=== PATIENT | female | born 1995 | race Caucasian/White ===

== ENCOUNTER 2020-04-12 16:58 | Emergency (ER) | payer OTHER, SELFPAY ==
--- NOTE | 2020-04-12 | US_ITS ---
EXAMINATION: ULTRASOUND OB LESS THAN 14 WEEKS CLINICAL INFORMATION: Vaginal bleeding, miscarriage versus ectopic. COMPARISON: None TECHNIQUE: Multiple 2-D grayscale and Doppler transabdominal/transvaginal pelvic ultrasound images were obtained. FINDINGS: Uterus: Anteverted/anteflexed demonstrating homogeneous myometrial and endometrial echo texture. The endometrial stripe measures up to 0.6 cm without focal abnormality. The cervix is closed with an approximate length of 2.5 cm. Minimal free fluid in the cul-de-sac. Right ovary: 2.6 x 1.8 x 1.7 cm. No right adnexal abnormality. Left ovary: 2.4 x 1.5 x 1.7 cm. No left adnexal abnormality. US/US OB transvaginal IMPRESSION: 1. Unremarkable uterus and ovaries. No evidence for intrauterine or ectopic . Continued monitoring of beta-hCG levels is recommended. Repeat abdominal ultrasound can be performed when levels reach approximately 1000 or greater.
[2020-04-12 17:15] VITALS: BP 138/76; PULSE 81; RESP 16; TEMP 36.9; O2SAT 100; BMI 37.5
--- NOTE | 2020-04-12 17:56 | US_ITS ---
EXAMINATION: ULTRASOUND OB LESS THAN 14 WEEKS CLINICAL INFORMATION: Vaginal bleeding, miscarriage versus ectopic. COMPARISON: None TECHNIQUE: Multiple 2-D grayscale and Doppler transabdominal/transvaginal pelvic ultrasound images were obtained. FINDINGS: Uterus: Anteverted/anteflexed demonstrating homogeneous myometrial and endometrial echo texture. The endometrial stripe measures up to 0.6 cm without focal abnormality. The cervix is closed with an approximate length of 2.5 cm. Minimal free fluid in the cul-de-sac. Right ovary: 2.6 x 1.8 x 1.7 cm. No right adnexal abnormality. Left ovary: 2.4 x 1.5 x 1.7 cm. No left adnexal abnormality. US/US OB <= 14 weeks fetus IMPRESSION: 1. Unremarkable uterus and ovaries. No evidence for intrauterine or ectopic . Continued monitoring of beta-hCG levels is recommended. Repeat abdominal ultrasound can be performed when levels reach approximately 1000 or greater.
--- NOTE | 2020-04-12 18:09 | ED.PREGNANCY ---
HPI - General Chief complaint: Vaginal Bleeding Stated complaint: miscarriage Time Seen by Provider: 04/12/20 17:37 Source: patient Mode of arrival: ambulatory Limitations: no limitations History of Present Illness HPI Narrative: 24yoF c PMHx of ovarian cyst who is [id number] presenting to the ED c c/o vaginal bleeding since lastnight c clots, lower abd cramping and thin clear/white colored discharged. Reports her last menstrual period was February 25, 2020. Took a test on Saturday and was positive. Denies any fevers, nausea /vomiting, back pain or any other symptoms complaints or concerns at this time. Related Data Home Medications Medication Instructions Recorded Confirmed albuterol sulfate 90 mcg/actuation INHALATION 02/29/20 02/29/20 aerosol inhaler budesonide 90 mcg/actuation breath 0 inh INHALATION 02/29/20 02/29/20 activated powder inhaler buspirone 5 mg tablet 5 mg PO BID 02/29/20 02/29/20 flu vac qs 2019(4 yr up)CD(PF) ml IM 02/29/20 02/29/20 fluoxetine 10 mg capsule 10 mg PO DAILY 02/29/20 02/29/20 Previous Rx's Medication Instructions Recorded acetaminophen [Tylenol Extra 500 mg PO Q6H PRN #14 tab 04/12/20 Strength] prenat.vits,gerri,haa-bqer-xirbs 1 tab PO DAILY #30 tab 04/12/20 Allergies Allergy/AdvReac Type Severity Reaction Status Date / Time amoxicillin Allergy Unknown hives Verified 02/29/20 12:52 Review of Systems Review of Systems: Constitutional : No Fever, No Chills Cardiovascular : No Chest Pain, No SOB Respiratory : No Cough, No Sputum, No Wheezing Gastrointestinal : No Nausea, No Vomiting, No Diarrhea, + abdominal pain, Genitourinary : + irregular bleeding, No Dysuria, No Urinary Frequency, No pelvic pain Musculoskeletal : No Myalgias Skin : No rash Neuro : No Weakness, No Headache Yes all other systems are reviewed and are negative [facility] Past Medical History Attestation statement: The following information was validated with the patient. Surgical History History of removal of cyst Family History Family History Father No problems noted. Mother No problems noted. Maternal Grandmother Diabetes mellitus Maternal Grandfather Cancer Paternal Grandfather No problems noted. Paternal Grandmother No problems noted. Brother No problems noted. Brother No problems noted. Brother No problems noted. Sister No problems noted. Sister No problems noted. Sister No problems noted. Sister No problems noted. Social History Social History Advance Directives: No Advance Directives Information Provided: No Physical Exam Vital Signs: Vital Signs: Last Vital Signs Temp 98.4 F 04/12/20 17:15 Pulse 81 04/12/20 17:15 Resp 16 04/12/20 17:15 BP 138/76 04/12/20 17:15 Pulse Ox 100 04/12/20 17:15 Body Mass Index 37.5 vital signs have been reviewed as normal and appeared to be correct. Blood pressure normal. Heart rate normal. Respiration rate normal. Temperature normal. Oxygen saturation normal. Appearance: Alert. Oriented X3. No acute distress. Head: Normal external exam. Normocephalic. Eyes: PERRLA. EOMI. Conjunctiva and sclera normal. Eyelids normal. ENT: Pharynx normal. Uvula midline. Moist mucous membranes. Neck: Normal inspection. Neck supple. FROM. No adenopathy. No meningeal signs. CVS: Normal heart rate and rhythm. Heart sound normal. No murmurs noted. Pulses normal throughout. Respiratory: No respiratory distress. Painless inspiration. Breath sounds normal. No wheezes/rales/rhonchi noted. Abdomen: Soft and TTP at upper/epigastric abdomen with guarding. No rigidity. Bowel sounds normal in all 4 quadrants. No distention noted. No organomegaly noted. No visible injury noted. No rebound tenderness. Negative Rovsing sign. Negative obturator's sign. Negative psoas sign. Negative Choudhury sign. : Normal external appearance, normal appearance of urethra. No lesions or discharge noted. Normal appearance of vagina normal to palpation. Bright red vaginal bleeding mildly. No vaginal discharge noted. Cervical os is closed. aLdonna RN at bedside for exam. Back: No CVA tenderness. Full range of motion noted. Skin: Skin warm and dry. Normal skin color. Normal skin turgor. No rashes/lesions/lacerations noted. Extremities: Extremities exhibit normal range of motion. Extremities nontender. Neuro: Oriented X 3. No motor deficit. No sensory deficit. Reflexes normal. Course Course Course Narrative: 18PM - 24yoF c PMHx of ovarian cyst who is [id number] presenting to the ED c c/o vaginal bleeding since lastnight c clots, lower abd cramping and thin clear/white colored discharged. - Concern for early stage versus miscarriage versus threatened versus ectopic . - Plan: Labs, UA, UHCG, First trimester ultrasound and re-evaluate. Reevaluation(s) Reevaluation #1: All labs within normal limits. Serum quant 278. UA within normal limits no evidence of UTI. UHCG positive for . Pending gonorrhea / chlamydia/ Trichomonas/yeast and bacterial vaginosis swabs. Although patient does not have any concerns for any STDs at this time and no abnormal vaginal discharge noted only vaginal bleeding on exam therefore will not treat for anything at this time. Patient is B positive for blood type. On ultrasound no evidence for intrauterine or ectopic therefore consulted with OBGYN Dr. Valente Romo and he recommended repeat serum quant in 48 hours therefore I gave her an outpatient lab slip along with instructions to follow-up with OBGYN this week. Instructions to return if any new or worsening symptoms and specially any fevers or any vaginal bleeding or abdominal pain. Patient understands and agrees with this plan. Time: 21:00 MDM - OB/Uterine Contractions Medical Records Attestation: I reviewed the patient's medical records. Lab Data Attestation: I reviewed the patient's lab results. Result diagrams: 04/12/20 18:16 04/12/20 18:16 Labs: Lab Results 04/12/20 04/12/20 04/12/20 Range/Units 18:16 18:16 18:16 WBC 10.4 (4.8-10.8) X10*3/uL RBC 4.54 (4.20-5.50) X10*6/uL Hgb 13.2 (12.0-16.0) g/dl Hct 40.8 (37-47) % MCV 89.9 (80-98) fL MCH 29.1 (27.0-33.0) pg MCHC 32.4 (31.0-35.0) g/dl RDW 12.7 (11.0-16.0) % Plt Count 237 (160-400) X10*3/uL MPV 10.0 (9.4-12.3) fL Immature Gran % (Auto) 0.3 (0.0-0.4) % Neut % (Auto) 64.9 (45-73) % Lymph % (Auto) 24.6 (20-40) % [place] % (Auto) 7.3 (2-11) % Eos % (Auto) 2.5 (0-4) % Baso % (Auto) 0.4 (0-2) % Lymph # (Auto) 2.6 (1.2-4.9) X10*3/uL [place] # (Auto) 0.8 (0.1-1.2) X10*3/uL Eos # (Auto) 0.3 (0.0-0.4) X10*3/uL Baso # (Auto) 0.0 (0.0-0.2) X10*3/uL Abs Immat Gran (auto) 0.03 (0.00-0.03) X10*3/uL Absolute Neuts (auto) 6.8 (2.0-8.3) X10*3/uL Absolute Nucleated RBC 0.000 (0.0-0.012) X10*3/uL Nucleated RBC % (auto) 0.0 (0.0-0.2) /100WBC PT 12.1 (10.8-13.0) SEC INR 1.0 (0.9-1.1) Sodium 141 (135-145) mmol/L Potassium 4.1 (3.3-5.1) mmol/l Chloride 107 (96-108) mmol/L Carbon Dioxide 28 (22-29) mmol/L Anion Gap 10 L (12-20) BUN 13 (9-16) mg/dL Creatinine 0.70 (0.5-1.4) mg/dL Estim Creat Clear Calc 132.7 Estimated GFR > 60 Random Glucose 68 (60-115) mg/dL Calcium 8.4 (8.4-10.2) mg/dL Magnesium 2.0 (1.6-2.6) mg/dL Total Bilirubin 0.3 (0.0-1.0) mg/dL Direct Bilirubin < 0.2 (0.0-0.5) mg/dL AST 15 (5-31) U/L ALT 18 (0-31) U/L Alkaline Phosphatase 63 (39-117) U/L Total Protein 6.8 (6.5-8.0) g/dL Albumin 3.8 (3.5-5.0) g/dL Beta HCG, Quant mIU/mL Urine Color Urine Appearance Urine pH (5.0-8.0) Ur Specific [place] (1.005-1.025) Urine Protein (NEG-TRACE) MG/DL Urine Glucose (UA) (NEG) MG/DL Urine Ketones (NEG) MG/DL Urine Blood (NEG) Urine Nitrite (NEG) Ur Leukocyte Esterase (NEG) Urine RBC (0) /HPF Urine WBC (0-4) /HPF Ur Squamous Epith Cells /LPF Urine Bacteria /LPF Urine Test (NEGATIVE) Blood Type 04/12/20 04/12/20 04/12/20 Range/Units 18:16 18:16 18:16 WBC (4.8-10.8) X10*3/uL RBC (4.20-5.50) X10*6/uL Hgb (12.0-16.0) g/dl Hct (37-47) % MCV (80-98) fL MCH (27.0-33.0) pg MCHC (31.0-35.0) g/dl RDW (11.0-16.0) % Plt Count (160-400) X10*3/uL MPV (9.4-12.3) fL Immature Gran % (Auto) (0.0-0.4) % Neut % (Auto) (45-73) % Lymph % (Auto) (20-40) % [place] % (Auto) (2-11) % Eos % (Auto) (0-4) % Baso % (Auto) (0-2) % Lymph # (Auto) (1.2-4.9) X10*3/uL [place] # (Auto) (0.1-1.2) X10*3/uL Eos # (Auto) (0.0-0.4) X10*3/uL Baso # (Auto) (0.0-0.2) X10*3/uL Abs Immat Gran (auto) (0.00-0.03) X10*3/uL Absolute Neuts (auto) (2.0-8.3) X10*3/uL Absolute Nucleated RBC (0.0-0.012) X10*3/uL Nucleated RBC % (auto) (0.0-0.2) /100WBC PT (10.8-13.0) SEC INR (0.9-1.1) Sodium (135-145) mmol/L Potassium (3.3-5.1) mmol/l Chloride (96-108) mmol/L Carbon Dioxide (22-29) mmol/L Anion Gap (12-20) BUN (9-16) mg/dL Creatinine (0.5-1.4) mg/dL Estim Creat Clear Calc Estimated GFR Random Glucose (60-115) mg/dL Calcium (8.4-10.2) mg/dL Magnesium (1.6-2.6) mg/dL Total Bilirubin (0.0-1.0) mg/dL Direct Bilirubin (0.0-0.5) mg/dL AST (5-31) U/L ALT (0-31) U/L Alkaline Phosphatase (39-117) U/L Total Protein (6.5-8.0) g/dL Albumin (3.5-5.0) g/dL Beta HCG, Quant 278 mIU/mL Urine Color YELLOW Urine Appearance CLEAR Urine pH 6.0 (5.0-8.0) Ur Specific [place] >= 1.030 H (1.005-1.025) Urine Protein NEG (NEG-TRACE) MG/DL Urine Glucose (UA) NEG (NEG) MG/DL Urine Ketones NEG (NEG) MG/DL Urine Blood 3+ H (NEG) Urine Nitrite NEG (NEG) Ur Leukocyte Esterase NEG (NEG) Urine RBC 5-9 H (0) /HPF Urine WBC 0 (0-4) /HPF Ur Squamous Epith Cells TRACE /LPF Urine Bacteria NONE /LPF Urine Test POSITIVE H (NEGATIVE) Blood Type B Positive Imaging Data First trimester ultrasound: Attestation: I personally reviewed and interpreted this imaging study as follows: Radiologist's impression: IMPRESSION: 1. Unremarkable uterus and ovaries. No evidence for intrauterine or ectopic . Continued monitoring of beta-hCG levels is recommended. Repeat abdominal ultrasound can be performed when levels reach approximately 1000 or greater. Discharge Plan Discharge Clinical Impression: Early stage of , Vaginal bleeding, Threatened Patient Disposition: Home, Self-Care Instructions: Threatened Miscarriage (ED), (ED), Abdominal Pain in (ED) Additional Instructions: I gave you are lab slip for repeat serum quant for for April 14 2020 for the outpatient lab and you should call Dr. Victor office the OBGYN tomorrow morning to make an appointment this week as well. Return if any new or worsening symptoms especially any fevers worsening abdominal pain or worsening vaginal bleeding including clots. Prescriptions: New acetaminophen [Tylenol Extra Strength] 500 mg tablet 500 mg PO Q6H PRN (Reason: pain) Qty: 14 RF: 0 prenat.vits,gerri,wcr-jbqe-lonhr Tablet 1 tab PO DAILY Qty: 30 RF: 0 No Action fluoxetine 10 mg capsule 10 mg PO DAILY RF: 0 Flucelvax Quad (PF) 60 mcg (15 mcg x 4)/0.5 mL syringe IM RF: 0 Pulmicort Flexhaler 90 mcg/actuation aerosol powdr breath activated 0 inh inhalation RF: 0 albuterol sulfate 90 mcg/actuation HFA aerosol inhaler inhalation RF: 0 buspirone 5 mg tablet 5 mg PO BID RF: 0 Referrals: Ranjith Victor MD [Physician] - 2 days ( call tomorrow morning to make an appointment ) Stand Alone Forms: Work/School Release Print Language: Indian
[2020-04-12 18:28] LABS: MANUAL DIFF FLAG NO
[2020-04-12 18:31] LABS: Basophils Percent Auto 0.4 % (0-2); Eosinophils Absolute Auto 0.3 X10*3/uL (0.0-0.4); Eosinophils Percent Auto 2.5 % (0-4); Hematocrit 40.8 % (37-47); Hemoglobin 13.2 g/dl (12.0-16.0); Imm Gran Abs Auto 0.03 X10*3/uL (0.00-0.03); Imm Gran Pct Auto 0.3 % (0.0-0.4); Lymphocytes Absolute Auto 2.6 X10*3/uL (1.2-4.9); Lymphocytes Percent Auto 24.6 % (20-40); Mean Corpuscular HGB Conc 32.4 g/dl (31.0-35.0); Mean Corpuscular Hemoglobin 29.1 pg (27.0-33.0); Mean Corpuscular Volume 89.9 fL (80-98); Monocytes Absolute Auto 0.8 X10*3/uL (0.1-1.2); Monocytes Percent Auto 7.3 % (2-11); Neutrophils Absolute Auto 6.8 X10*3/uL (2.0-8.3); Neutrophils Percent Auto 64.9 % (45-73); Platelet Count 237 X10*3/uL (160-400); Red Blood Count 4.54 X10*6/uL (4.20-5.50); Red Cell Distribution Width 12.7 % (11.0-16.0); White Blood Count 10.4 X10*3/uL (4.8-10.8)
[2020-04-12 18:33] LABS: Glucose Urine UA NEG (NEG); Leukocyte Esterase Urine NEG (NEG); Nitrite Urine NEG (NEG); Specific Gravity - Urine >= 1.030 (1.005-1.025); Urine Blood 3+ (NEG); Urine Ketones NEG (NEG); Urine Protein NEG (NEG-TRACE)
[2020-04-12 18:36] LABS: Prothrombin Time 12.1 SEC (10.8-13.0)
[2020-04-12 18:40] LABS: Appearance Urine CLEAR; Color Urine YELLOW; UPreg QC Valid YES; Urine Pregnancy POSITIVE (NEGATIVE)
[2020-04-12 18:49] LABS: Squamous Epithelial Cell Urine TRACE /LPF; WBC Urine 0 /HPF (0-4)
[2020-04-12 18:59] LABS: Alanine Aminotransferase 18 U/L (0-31); Albumin Level 3.8 g/dL (3.5-5.0); Alkaline Phosphatase 63 U/L (39-117); Anion Gap 10 (12-20); Aspartate Amino Transferase 15 U/L (5-31); Bilirubin Direct < 0.2 mg/dL (0.0-0.5); Bilirubin Total 0.3 mg/dL (0.0-1.0); Blood Urea Nitrogen 13 mg/dL (9-16); Calcium 8.4 mg/dL (8.4-10.2); Carbon Dioxide 28 mmol/L (22-29); Chloride 107 mmol/L (96-108); Creatinine Clr Calc Pharmacy 132.7; Estimated Glomerular Filt Rate > 60; Glucose Random 68 mg/dL (60-115); Potassium 4.1 mmol/l (3.3-5.1); Sodium 141 mmol/L (135-145); Total Protein 6.8 g/dL (6.5-8.0)
[2020-04-12 19:05] LABS: HCG Quantitative 278 mIU/mL
--- NOTE | 2020-04-12 19:17 | PC.NURSE ---
ASSUMED CARE OF PT. PT ALERT AND WATCHING TV, RESTING IN STRETCHER. PT REQUESTING NOT TO BE DISTRUBED FROM [id number]. [facility] NURSE AWARE AND STATES WE WILL TRY TO ACCOMMODATE PT AWARE. PT DENIES ANY COMPLAINTS. PT IN W/C TO U/S AT THIS TIME. WILL CONTINUE TO MONITOR PT.
--- NOTE | 2020-04-12 19:50 | PC.NURSE ---
PT RETURNS FROM U/S IN STRETCHER IN NAD. AWAITING PENDING RESULTS.
[2020-04-12] MEDS: Acetaminophen 325 MG TABLET 650 MG PO (20:46)
--- NOTE | 2020-04-12 20:46 | P.CONOB_ITS ---
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 Rh positive, no additional complaints cc:: CC: Meds Allergies Allergy/AdvReac Type Severity Reaction Status Date / Time amoxicillin Allergy Unknown hives Verified 02/29/20 12:52 Home Medications Medication Instructions Recorded Confirmed Type albuterol sulfate 90 mcg/actuation INHALATION 02/29/20 02/29/20 History aerosol inhaler budesonide 90 mcg/actuation breath 0 inh INHALATION 02/29/20 02/29/20 History activated powder inhaler buspirone 5 mg tablet 5 mg PO BID 02/29/20 02/29/20 History flu vac qs 2019(4 yr up)CD(PF) ml IM 02/29/20 02/29/20 History fluoxetine 10 mg capsule 10 mg PO DAILY 02/29/20 02/29/20 History 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 - Results Labs CBC & Chem 7: 04/12/20 18:16 04/12/20 18:16 Labs: Short CBC 04/12/20 Range/Units 18:16 WBC 10.4 (4.8-10.8) X10*3/uL Hgb 13.2 (12.0-16.0) g/dl Hct 40.8 (37-47) % Plt Count 237 (160-400) X10*3/uL BMP 04/12/20 18:16 Sodium 141 Potassium 4.1 Chloride 107 Carbon Dioxide 28 BUN 13 Creatinine 0.70 Calcium 8.4 Liver Function 04/12/20 Range/Units 18:16 Total Bilirubin 0.3 (0.0-1.0) mg/dL Direct Bilirubin < 0.2 (0.0-0.5) mg/dL AST 15 (5-31) U/L ALT 18 (0-31) U/L Alkaline Phosphatase 63 (39-117) U/L Albumin 3.8 (3.5-5.0) g/dL Urine 04/12/20 Range/Units 18:16 Urine Color YELLOW Urine Appearance CLEAR Urine pH 6.0 (5.0-8.0) Ur Specific [place] >= 1.030 H (1.005-1.025) Urine Protein NEG (NEG-TRACE) MG/DL Urine Glucose (UA) NEG (NEG) MG/DL Urine Test POSITIVE H (NEGATIVE) Assessment and Plan (1) Early stage of : Status: Acute Differential diagnosis includes SAB versus ectopic versus early viable . Repeat hCG in 48 hours follow-up in the office in 48 hours. Warnings to be given to the patient to call or come back the emergency room if abdominal/pelvic cramps , and or vaginal bleeding persist and/or worsens. No indication for RhoGAM since Rh is positive
[2020-04-18 18:10] LABS: CT PCR NOT DETECTED (Not Detect.); NG PCR NOT DETECTED (Not Detect.)
== END 2020-04-12 21:12 | disposition home or self-care (01) ==
PROVIDERS: Physician Assistant Medical; Emergency Provider Emergency Medicine Emergency Medical Services; PCP Nurse Practitioner Family
DX: O20.0 Threatened abortion (principal); Z3A.13 13 weeks gestation of pregnancy; R10.10 Upper abdominal pain, unspecified
CPT/HCPCS: 36415; 76801; 76817; 80048; 80076; 81001; 81025; 83735; 84702; 85025; 85610; 86900; 86901; 87480; 87491; 87510; 87591; 87660; 99283; 99284

== ENCOUNTER 2020-04-14 07:22 | Outpatient (REF) | payer OTHER, SELFPAY ==
[2020-04-14 09:36] LABS: Alanine Aminotransferase 19 U/L (0-31); Alkaline Phosphatase 72 U/L (39-117); Anion Gap 10 (12-20); Aspartate Amino Transferase 17 U/L (5-31); Bilirubin Total 0.5 mg/dL (0.0-1.0); Blood Urea Nitrogen 12 mg/dL (9-16); Calcium 8.6 mg/dL (8.4-10.2); Carbon Dioxide 29 mmol/L (22-29); Chloride 105 mmol/L (96-108); Cholesterol 119 mg/dL; Estimated Glomerular Filt Rate > 60; Glucose Fasting 87 mg/dL (60-99); HDL Cholesterol 47 mg/dL; LDL Cholesterol Calculated 65 mg/dl; Potassium 4.3 mmol/l (3.3-5.1); Sodium 140 mmol/L (135-145); Total Protein 7.1 g/dL (6.5-8.0); Triglycerides 35 mg/dL
[2020-04-14 09:56] LABS: HCG Quantitative 98 mIU/mL; TSH reflex Free T4 2.12 mIU/mL (0.32-4.0)
== END 2020-04-14 07:23 | disposition home or self-care (01) ==
LOC: HO.LAB 07:22
PROVIDERS: Nurse Practitioner Family; Visit Provider Physician Assistant Medical
DX: O03.9 Complete or unspecified spontaneous abortion without complication (principal); O46.90 Antepartum hemorrhage, unspecified, unspecified trimester; Z3A.00 Weeks of gestation of pregnancy not specified
CPT/HCPCS: 80053; 80061; 84443; 84702; 99212

== ENCOUNTER 2020-04-14 08:09 | Outpatient (REF) | payer OTHER, SELFPAY | END 2020-04-14 08:10 | disposition home or self-care (01) | LOC: HO.HMGCLDS 08:09 | PROVIDERS: PCP Nurse Practitioner Family; Visit Provider Nurse Practitioner Family | DX: Z13.89 Encounter for screening for other disorder (principal) ==

== ENCOUNTER 2020-04-25 12:37 | Outpatient (REF) | payer OTHER, SELFPAY ==
[2020-04-25 13:44] LABS: HCG Quantitative < 2 mIU/mL
== END 2020-04-25 12:38 | disposition home or self-care (01) ==
LOC: HO.LAB 12:37
PROVIDERS: PCP Nurse Practitioner Family; Visit Provider Obstetrics & Gynecology
DX: O03.9 Complete or unspecified spontaneous abortion without complication (principal)
CPT/HCPCS: 84702

== ENCOUNTER → 2020-04-27 12:54 | Outpatient (BNVA) | payer OTHER, SELFPAY | PROVIDERS: Visit Provider Obstetrics & Gynecology | DX: O03.9 Complete or unspecified spontaneous abortion without complication (principal); Z30.09 Encounter for other general counseling and advice on contraception | CPT/HCPCS: 99212; Q3014 ==

== ENCOUNTER 2020-05-16 17:19 | Outpatient (REF) | payer OTHER, SELFPAY ==
[2020-05-16 18:18] LABS: HCG Quantitative 1277 mIU/mL
== END 2020-05-16 17:20 | disposition home or self-care (01) ==
LOC: HO.LAB 17:19
PROVIDERS: PCP Nurse Practitioner Family; Visit Provider Obstetrics & Gynecology
DX: Z34.90 Encounter for supervision of normal pregnancy, unspecified, unspecified trimester (principal)
CPT/HCPCS: 36415; 84702

== ENCOUNTER → 2020-05-17 14:38 | Outpatient (BNVA) | payer OTHER, SELFPAY | PROVIDERS: PCP Nurse Practitioner Family; Visit Provider Obstetrics & Gynecology | DX: Z34.90 Encounter for supervision of normal pregnancy, unspecified, unspecified trimester (principal) | CPT/HCPCS: 81025; 99212 ==

== ENCOUNTER 2020-05-18 16:59 | Outpatient (REF) | payer OTHER, SELFPAY ==
[2020-05-18 18:21] LABS: HCG Quantitative 3117 mIU/mL
== END 2020-05-18 17:00 | disposition home or self-care (01) ==
LOC: HO.LAB 16:59
PROVIDERS: PCP Nurse Practitioner Family; Visit Provider Obstetrics & Gynecology
DX: Z34.90 Encounter for supervision of normal pregnancy, unspecified, unspecified trimester (principal)
CPT/HCPCS: 36415; 84702

== ENCOUNTER 2020-05-26 14:47 | Outpatient (REF) | payer OTHER, SELFPAY ==
--- NOTE | 2020-05-26 | US_ITS ---
EXAMINATION: US OB LESS THAN 14 WEEKS US OB TRANSVAGINAL CLINICAL INFORMATION: Screening for uncertain dates. COMPARISON: Ultrasound OB 04/12/2020. TECHNIQUE: Transabdominal and transvaginal ultrasound of the pelvis was performed. FINDINGS: The uterus is anteverted. There is an intrauterine gestational sac, pole and yolk sac visualized. The crown-rump length measures 0.28 cm corresponding to 6 weeks and 0 days and an ELODIA of 01/19/2021. There is a small subchorionic hypoechoic area suspicious for a bleed. The heart rate measures 115 bpm. Right ovary measures 2.9 x 1.8 x 1.6 cm and appears unremarkable. Left ovary measures 2.5 x 2.0 x 2.2 cm and appears unremarkable. There is minimal free fluid in the cul-de-sac. US/US OB transvaginal IMPRESSION: Single, intrauterine fetus with an ultrasound gestational age of 6 weeks and 0 days and an ELODIA of 01/19/2021. There is suspicion for a small subchorionic bleed. heart rate is 115 bpm.
--- NOTE | 2020-05-26 14:52 | US_ITS ---
EXAMINATION: US OB LESS THAN 14 WEEKS US OB TRANSVAGINAL CLINICAL INFORMATION: Screening for uncertain dates. COMPARISON: Ultrasound OB 04/12/2020. TECHNIQUE: Transabdominal and transvaginal ultrasound of the pelvis was performed. FINDINGS: The uterus is anteverted. There is an intrauterine gestational sac, pole and yolk sac visualized. The crown-rump length measures 0.28 cm corresponding to 6 weeks and 0 days and an ELODIA of 01/19/2021. There is a small subchorionic hypoechoic area suspicious for a bleed. The heart rate measures 115 bpm. Right ovary measures 2.9 x 1.8 x 1.6 cm and appears unremarkable. Left ovary measures 2.5 x 2.0 x 2.2 cm and appears unremarkable. There is minimal free fluid in the cul-de-sac. US/US OB <= 14 weeks fetus IMPRESSION: Single, intrauterine fetus with an ultrasound gestational age of 6 weeks and 0 days and an ELODIA of 01/19/2021. There is suspicion for a small subchorionic bleed. heart rate is 115 bpm.
== END 2020-05-26 14:48 | disposition home or self-care (01) ==
LOC: HO.US 14:47
PROVIDERS: PCP Nurse Practitioner Family; Visit Provider Obstetrics & Gynecology
DX: O26.841 Uterine size-date discrepancy, first trimester (principal); Z3A.01 Less than 8 weeks gestation of pregnancy
CPT/HCPCS: 76801; 76817

== ENCOUNTER 2020-06-01 13:12 | Outpatient (REF) | payer OTHER, SELFPAY ==
[2020-06-01 17:43] LABS: Glucose Urine UA NEG (NEG); Leukocyte Esterase Urine NEG (NEG); Nitrite Urine NEG (NEG); Specific Gravity - Urine 1.015 (1.005-1.025); Urine Blood NEG (NEG); Urine Ketones NEG (NEG); Urine Protein NEG (NEG-TRACE)
[2020-06-01 17:46] LABS: Appearance Urine CLEAR; Color Urine YELLOW
== END 2020-06-01 13:13 | disposition home or self-care (01) ==
LOC: HO.LAB 13:12
PROVIDERS: PCP Nurse Practitioner Family; Visit Provider Advanced Practice Midwife
DX: O26.899 Other specified pregnancy related conditions, unspecified trimester (principal); R25.2 Cramp and spasm; Z79.899 Other long term (current) drug therapy
CPT/HCPCS: 81003; 99212

== ENCOUNTER → 2020-06-10 14:09 | Outpatient (BNVA) | payer OTHER, SELFPAY | PROVIDERS: PCP Nurse Practitioner Family; Visit Provider Advanced Practice Midwife | DX: Z13.89 Encounter for screening for other disorder (principal) | CPT/HCPCS: 99212 ==

== ENCOUNTER 2020-06-15 16:57 | Outpatient (REF) | payer OTHER, SELFPAY ==
[2020-06-15 17:56] LABS: Basophils Percent Auto 0.2 % (0-2); Eosinophils Absolute Auto 0.2 X10*3/uL (0.0-0.4); Eosinophils Percent Auto 1.5 % (0-4); Hemoglobin 11.8 g/dl (12.0-16.0); Imm Gran Abs Auto 0.04 X10*3/uL (0.00-0.03); Imm Gran Pct Auto 0.3 % (0.0-0.4); Lymphocytes Absolute Auto 2.2 X10*3/uL (1.2-4.9); Lymphocytes Percent Auto 17.9 % (20-40); MANUAL DIFF FLAG NO; Mean Corpuscular HGB Conc 32.8 g/dl (31.0-35.0); Mean Corpuscular Hemoglobin 28.6 pg (27.0-33.0); Mean Corpuscular Volume 87.4 fL (80-98); Mean Platelet Volume 9.9 fL (9.4-12.3); Monocytes Absolute Auto 0.8 X10*3/uL (0.1-1.2); Monocytes Percent Auto 6.1 % (2-11); Neutrophils Absolute Auto 9.1 X10*3/uL (2.0-8.3); Platelet Count 260 X10*3/uL (160-400); Red Blood Count 4.12 X10*6/uL (4.20-5.50); Red Cell Distribution Width 12.5 % (11.0-16.0); White Blood Count 12.3 X10*3/uL (4.8-10.8)
[2020-06-15 18:55] LABS: Amphetamine Screen Urine Not Detected (Not Detect); Barbiturates, Urine Not Detected (Not Detect); Benzodiazepines Screen Urine Not Detected (Not Detect); Cannabinoid Screen Urine Not Detected (Not Detect); Cocaine Screen Urine Not Detected (Not Detect); Opiate Screen Urine Not Detected (Not Detect); Phencyclidine Screen Urine Not Detected (Not Detect)
[2020-06-16 08:30] LABS: HBsAGNum1 0.21 S/CO (0.00-0.99); HIV AB/AG Nonreactive (Nonreactive); HIV Num 1 0.05 S/CO (0.00-0.99); Hepatitis B Surface Antigen Negative (Negative)
[2020-06-16 08:41] LABS: ~HepC Num1 0.12 S/CO (0.00-0.79); ~Hepatitis C Antibody Nonreactive (Nonreactive)
[2020-06-17 09:07] LABS: Syphilis Screen Nonreactive (Nonreactive)
[2020-06-17 09:12] LABS: Rubella IgG Antibody 5.91 Index; Varicella IgG Antibody <135.00 index
== END 2020-06-15 16:58 | disposition home or self-care (01) ==
LOC: HO.LAB 16:57
PROVIDERS: PCP Nurse Practitioner Family; Visit Provider Advanced Practice Midwife
DX: Z34.90 Encounter for supervision of normal pregnancy, unspecified, unspecified trimester (principal)
CPT/HCPCS: 80307; 85025; 86762; 86780; 86787; 86803; 86850; 86900; 86901; 87086; 87340; 87389

== ENCOUNTER 2020-06-30 10:54 | Outpatient (REF) | payer SELFPAY ==
[2020-07-01 08:24] LABS: BV Int Neg Control Negative (Negative); BV Int Pos Control Positive (Positive)
[2020-07-01 14:56] LABS: C. trachomatis RNA TMA NOT DETECTED (NOT DETECTED); N. gonorrhoeae RNA TMA NOT DETECTED (NOT DETECTED)
== END 2020-06-30 10:55 | disposition home or self-care (01) ==
LOC: HO.LAB 10:54
PROVIDERS: PCP Nurse Practitioner Family; Visit Provider Advanced Practice Midwife
DX: O26.899 Other specified pregnancy related conditions, unspecified trimester (principal); Z79.899 Other long term (current) drug therapy; J45.909 Unspecified asthma, uncomplicated
CPT/HCPCS: 36415; 81003; 87210; 87480; 87491; 87510; 87591; 87660; 88142; 99212

== ENCOUNTER 2020-07-15 12:52 | Outpatient (REF) | payer SELFPAY ==
--- NOTE | ~2020-07-15 | US_ITS ---
EXAMINATION: OBSTETRICAL ULTRASOUND, FIRST TRIMESTER HISTORY: 25-year-old at 13.1 weeks of gestation NT screening COMPARISON: 05/26/2020 TECHNIQUE: Real time transabdominal imaging with color and M-mode Doppler. FINDINGS: A single, live IUP CRL of 68 mm c/w 13.1wks is noted. Heart Rate: 149 beats per minute. Normal yolk sac seen. NT was 1.6.mm. NB Present The embryo appears sonographically wnl for this GA. Both maternal ovaries are seen and appear normal. GESTATIONAL AGE: 1. Established GA: 13.1 wks 2. GA from AUA: 13.1 wks ESTIMATED DATE OF DELIVERY: 1. Established ELODIA: 01/19/2021 2. ELODIA from A: 01/19/2021 US/US OB 1T nuc measure IMPRESSION: 1. A single live IUP 2. Size equals dates 3. NT of 1.6 mm MFM Consultation: I reviewed the ultrasound findings along with significance of NT measurement. The NT of less than 3mm is generally reassuring. However, the sensitivity for T21 detection is only 60%. I reviewed the availability of serum aneuploidy screening which includes cell-free DNA and placental protein based tests. I discussed the sensitivity, false-positive rate, and other limitations associated with each test. I also reviewed the availability of invasive diagnostic tests that are associated small but definite risk of miscarriage. We also reviewed the differences between screening tests and diagnostic tests. After our discussion, she opted for the First trimester screening that is based on cell-free DNA or non-invasive testing (NIPT). The result will be faxed to your office in approximately 7 days. A follow up at 18 weeks for survey has been scheduled. Thank you very much for this referral. Total time 20 minutes. The time spent was devoted to counseling the patient about the disease and diagnosis, coordinating care including reviewing her records, pertinent lab data and studies, as well as discussing diagnostic evaluation and workup, plan therapeutic interventions and future disposition of care. This includes any additional research needed to obtain further information in formulating the plan of care of this patient. This note was generated with a voice recognition program. Please excuse any errors which may have been overlooked during my review of this note. Sometimes these errors may affect the content or meaning of a given sentence.
[2020-07-15 16:10] LABS: Glucose 1 Hour 100 mg/dL
[2020-07-16 15:01] LABS: CT PCR NOT DETECTED (Not Detect.); NG PCR NOT DETECTED (Not Detect.)
== END 2020-07-15 12:53 | disposition home or self-care (01) ==
LOC: HO.US 12:52
PROVIDERS: Advanced Practice Midwife; Visit Provider Advanced Practice Midwife
DX: Z34.91 Encounter for supervision of normal pregnancy, unspecified, first trimester (principal); Z36.82 Encounter for antenatal screening for nuchal translucency
CPT/HCPCS: 76813; 82951; 87491; 87591

== ENCOUNTER → 2020-07-28 09:34 | Outpatient (BNVA) | payer OTHER, SELFPAY | PROVIDERS: PCP Nurse Practitioner Family; Visit Provider Advanced Practice Midwife | DX: Z34.91 Encounter for supervision of normal pregnancy, unspecified, first trimester (principal); Z3A.15 15 weeks gestation of pregnancy; Z36.3 Encounter for antenatal screening for malformations | CPT/HCPCS: 81003; 99212 ==

== ENCOUNTER → 2020-08-25 08:26 | Outpatient (BNVA) | payer SELFPAY | PROVIDERS: Visit Provider Advanced Practice Midwife | DX: Z34.92 Encounter for supervision of normal pregnancy, unspecified, second trimester (principal); E66.9 Obesity, unspecified; Z3A.19 19 weeks gestation of pregnancy | CPT/HCPCS: 81003; 99212 ==

== ENCOUNTER → 2020-09-21 11:24 | Outpatient (BNVA) | payer SELFPAY | PROVIDERS: PCP Nurse Practitioner Family; Visit Provider Advanced Practice Midwife | DX: O99.342 Other mental disorders complicating pregnancy, second trimester (principal); F32.9 Major depressive disorder, single episode, unspecified; Z3A.22 22 weeks gestation of pregnancy | CPT/HCPCS: 81003; 99212 ==

== ENCOUNTER 2020-10-28 11:20 | Outpatient (REF) | payer OTHER, SELFPAY ==
[2020-10-28 16:05] LABS: Hematocrit 31.5 % (37-47); Hemoglobin 10.6 g/dl (12.0-16.0); Mean Corpuscular HGB Conc 33.7 g/dl (31.0-35.0); Mean Corpuscular Volume 86.3 fL (80-98); Mean Platelet Volume 10.3 fL (9.4-12.3); Platelet Count 267 X10*3/uL (160-400); Red Blood Count 3.65 X10*6/uL (4.20-5.50); Red Cell Distribution Width 13.2 % (11.0-16.0); White Blood Count 11.6 X10*3/uL (4.8-10.8)
[2020-10-28 16:22] LABS: Glucose 1 Hour PP 50gm Dose 146 mg/dL (60-140)
[2020-10-28 16:26] LABS: Alanine Aminotransferase 45 U/L (0-31); Aspartate Amino Transferase 23 U/L (5-31)
[2020-10-28 16:48] LABS: Syphilis Screen Nonreactive (Nonreactive)
[2020-10-28 17:33] LABS: Creatinine Urine 189.89 mg/dL; Protein/Creatinine Ratio, Ur 0.09 (<0.2); Total Protein Urine Random 17 mg/dL (<12)
[2020-10-28 18:20] LABS: CT PCR NOT DETECTED (Not Detect.); NG PCR NOT DETECTED (Not Detect.)
[2020-10-29 12:46] LABS: BV Int Neg Control Negative (Negative); BV Int Pos Control Positive (Positive)
== END 2020-10-28 11:21 | disposition home or self-care (01) ==
LOC: HO.LAB 11:20
PROVIDERS: Visit Provider Advanced Practice Midwife
DX: O09.93 Supervision of high risk pregnancy, unspecified, third trimester (principal); O26.893 Other specified pregnancy related conditions, third trimester; N89.8 Other specified noninflammatory disorders of vagina; Z20.2 Contact with and (suspected) exposure to infections with a predominantly sexual mode of transmission; R51.9 Headache, unspecified; R79.89 Other specified abnormal findings of blood chemistry
CPT/HCPCS: 36415; 84156; 84450; 84460; 85027; 86780; 87480; 87491; 87510; 87591; 87660

== ENCOUNTER 2020-10-28 11:33 | Outpatient (REF) | payer OTHER, SELFPAY ==
--- NOTE | ~2020-10-28 | US_ITS ---
EXAMINATION: US OBSTETRICAL CLINICAL INFORMATION: 25-year-old at 28.1 weeks of gestation Insufficient care Screening for anomaly COMPARISON: 07/15/2020 TECHNIQUE: Real-time transabdominal ultrasound was performed using C1-5 megahertz transducer. FINDINGS: A single, active, fetus is seen in vertex presentation. The placenta is posterior without previa, and the amniotic fluid volume is wnl. MEASUREMENTS: 1. Biparietal Diameter: 7.70 cm; 31.1 wks 2. Occipital Frontal Diameter: 10.0 cm 3. Head Circumference: 28.1 cm; 30.6 wks 4. Abdominal Circumference: 24.4 cm; 28.5 wks 5. Femur Length: 5.5 cm; 29.0 wks 6. Humerus Length: 4.9 cm; 29.0 wks 7. Tibia Length: 4.4 cm; 27.2 wks 8. Ulna Length: 4.4 cm; 28.4 wks 9. Lateral ventricle: 0.3 cm 10. Cerebellum: 3.2 cm; 29.4 wks 11. Cisterna Magna: 0.82 cm 12. Nuchal Fold: N/A mm 13. Heart Rate: 143 beats per minute Rt ovary: normal Lt ovary: normal Cervical length 2.8 cm on T/A. GESTATIONAL AGE: 1. Established GA: 28.1 wks 2. GA from [facility]: 30.0 wks ESTIMATED DATE OF DELIVERY: 1. Established ELODIA: 01/19/2021 2. ELODIA from [facility]: 01/06/2021 ANATOMY: The visualized anatomy includes but not limited to: 1. Cranium: Normal 2. Intracranial anatomy: cavum septum pellucidi, lateral ventricles, choroid plexus, cerebellum, posterior fossa, third and fourth ventricles. 3. face: orbits, lip/palate, profile, nasal bone 4. Heart: four-chamber view of the heart, ventricular septum, foramen ovale, pulmonary vein, left and right outflow tracts, three-vessel view, 3 vessel trachea view, aortic and ductal arches, situs.. 5. Diaphragm: Normal 6. Abdominal wall: Normal 7. Cord Insertion: Normal 8. Spine: Cervical, thoracic, lumbar, sacral. 9. Stomach: Normal size and shape 10. Right Kidney: Normal 11. Left Kidney: Normal 12. 3 vessel cord: Normal 13. Upper extremity: Open hands, fifth digit. 14. Lower extremity: Tibia, fibula, bilateral feet. 15. Bladder: Normal 16. Genitalia: Female, patient aware US/US OB /maternal detail IMPRESSION: 1. Single, living, intrauterine with appropriate biometry. 2. Normal survey DISCUSSION: I reviewed today's ultrasound findings. We discussed the limitations of ultrasound in diagnosing aneuploidy and other congenital abnormalities. I reviewed the differences between screening test and diagnostic test. Amniocentesis was discussed and declined. This is her first the ultrasound after her 13 week for NT evaluation due to insurance issues. She was informed that the baseline incidence of congenital abnormalities is approximately 3-5%. Not all these conditions are diagnosable in utero. RECOMMENDATIONS: 1. Follow-up when necessary. Thank you for allowing me to participate in her care. Total time 30 minutes. The time spent was devoted to counseling the patient about the disease and diagnosis, coordinating care including reviewing her records, pertinent lab data and studies, as well as discussing diagnostic evaluation and workup, plan therapeutic interventions and future disposition of care. This includes any additional research needed to obtain further information in formulating the plan of care of this patient. This note was generated with a voice recognition program. Please excuse any errors which may have been overlooked during my review of this note. Sometimes these errors may affect the content or meaning of a given sentence.
== END 2020-10-28 11:34 | disposition home or self-care (01) ==
LOC: HO.US 11:33
PROVIDERS: Absent Provider Advanced Practice Midwife; PCP Nurse Practitioner Family; Visit Provider Advanced Practice Midwife
DX: O09.93 Supervision of high risk pregnancy, unspecified, third trimester (principal); N89.8 Other specified noninflammatory disorders of vagina; Z36.3 Encounter for antenatal screening for malformations; Z3A.28 28 weeks gestation of pregnancy
CPT/HCPCS: 76811; 81003; 99212

== ENCOUNTER 2020-11-11 07:15 | Outpatient (REF) | payer OTHER, SELFPAY ==
[2020-11-11 08:29] LABS: Glucose Fasting 90 mg/dL (60-99)
[2020-11-11 09:17] LABS: Glucose 1 Hour 211 mg/dL
[2020-11-11 10:03] LABS: Glucose 2 Hour 190 mg/dL
[2020-11-11 11:44] LABS: Glucose 3 Hour 94 mg/dL
== END 2020-11-11 07:16 | disposition home or self-care (01) ==
LOC: HO.LAB 07:15
PROVIDERS: PCP Nurse Practitioner Family; Visit Provider Advanced Practice Midwife
DX: O99.213 Obesity complicating pregnancy, third trimester (principal); O99.810 Abnormal glucose complicating pregnancy; O26.893 Other specified pregnancy related conditions, third trimester; E66.9 Obesity, unspecified; J45.909 Unspecified asthma, uncomplicated; Z3A.30 30 weeks gestation of pregnancy
CPT/HCPCS: 36415; 81003; 82951; 99212

== ENCOUNTER → 2020-11-17 15:04 | Outpatient (BNVA) | payer OTHER, SELFPAY | PROVIDERS: PCP Nurse Practitioner Family; Visit Provider Advanced Practice Midwife ==

== ENCOUNTER 2020-11-25 08:16 | Outpatient (REF) | payer OTHER, SELFPAY ==
[2020-11-25 17:50] LABS: Hematocrit 33.9 % (37-47); Hemoglobin 10.9 g/dl (12.0-16.0); Mean Corpuscular HGB Conc 32.2 g/dl (31.0-35.0); Mean Corpuscular Hemoglobin 28.1 pg (27.0-33.0); Mean Corpuscular Volume 87.4 fL (80-98); Mean Platelet Volume 10.3 fL (9.4-12.3); Platelet Count 261 X10*3/uL (160-400); Red Blood Count 3.88 X10*6/uL (4.20-5.50); Red Cell Distribution Width 13.6 % (11.0-16.0); White Blood Count 10.2 X10*3/uL (4.8-10.8)
[2020-11-25 18:15] LABS: Alanine Aminotransferase 33 U/L (0-31); Aspartate Amino Transferase 19 U/L (5-31); Blood Urea Nitrogen 7 mg/dL (9-16)
[2020-11-25 18:16] LABS: Creatinine Urine 202.55 mg/dL; Total Protein Urine Random 20 mg/dL (<12)
== END 2020-11-25 08:17 | disposition home or self-care (01) ==
LOC: HO.LAB 08:16
PROVIDERS: PCP Nurse Practitioner Family; Visit Provider Advanced Practice Midwife
DX: O36.8130 Decreased fetal movements, third trimester, not applicable or unspecified (principal); O16.3 Unspecified maternal hypertension, third trimester; O26.893 Other specified pregnancy related conditions, third trimester; R51.9 Headache, unspecified; R73.9 Hyperglycemia, unspecified
CPT/HCPCS: 36415; 81003; 84156; 84450; 84460; 84520; 85027; 99212

== ENCOUNTER → 2020-11-28 15:02 | Outpatient (BNVA) | payer OTHER, SELFPAY | PROVIDERS: Visit Provider Obstetrics & Gynecology | DX: O24.419 Gestational diabetes mellitus in pregnancy, unspecified control (principal); Z3A.32 32 weeks gestation of pregnancy | CPT/HCPCS: 99212 ==

== ENCOUNTER → 2020-11-29 13:51 | Outpatient (BNVA) | payer OTHER, SELFPAY | PROVIDERS: Visit Provider Advanced Practice Midwife | DX: O99.213 Obesity complicating pregnancy, third trimester (principal); O24.419 Gestational diabetes mellitus in pregnancy, unspecified control; O99.343 Other mental disorders complicating pregnancy, third trimester; F32.9 Major depressive disorder, single episode, unspecified; Z3A.32 32 weeks gestation of pregnancy; Z88.1 Allergy status to other antibiotic agents | CPT/HCPCS: 99212 ==

== ENCOUNTER 2020-12-02 10:38 | Outpatient (REF) | payer OTHER, SELFPAY ==
--- NOTE | ~2020-12-02 | US_ITS ---
EXAMINATION: OBSTETRICAL ULTRASOUND, Follow up HISTORY: 25-year-old at the 33.1 weeks of gestation GDM on diet High BMI COMPARISON: 10/28/2020 TECHNIQUE: Real time transabdominal imaging with color and M-mode Doppler. PRESENTATION: Vertex PLACENTA LOCATION: Fundal, right AMNIOTIC FLUID: SHABNAM 17.6 MEASUREMENTS: 1. Biparietal Diameter: 9.3 cm; 38.0 wks 2. Head Circumference: 32.3 cm; 36.4 wks 3. Abdominal Circumference: 31.2 cm; 35.2 wks 4. Femur Length: 6.4 cm; 32.6 wks 5. Heart Rate: 1:30 beats per minute WEIGHT: EFW: 2558 grams (5 lbs 10 oz) -- 91 %. BIOPHYSICAL PROFILE: Motion: 2 Tone: 2 Breathin Amniotic Fluid: 2 Total score: 8/8 GESTATIONAL AGE: 1. Established GA: 33.1 wks 2. GA from AUA: 35.5 wks ESTIMATED DATE OF DELIVERY: 1. Established ELODIA: 01/19/2021 2. ELODIA from AUA: 01/01/2021 US/US OB follow up IMPRESSION: 1. A single active fetus is in vertex presentation 2. Size greater than dates, EFW corresponds to 91st percentile. 3. Reassuring biophysical profile with the normal SHABNAM. I reviewed the limitations of ultrasound and estimating weights. Although the EFW corresponds to 91st percentile today, this does not predict macrosomia at the term. She informs me that her fasting values are above 95. Postprandial values during the day are within target range. Suggest starting metformin 500 mg by mouth daily at bedtime. If she starts on metformin, she should begin weekly testing. Otherwise the repeat growth in 3 weeks is suggested (not scheduled). Thank you very much for this referral. Total time 30 minutes. The time spent was devoted to counseling the patient about the disease and diagnosis, coordinating care including reviewing her records, pertinent lab data and studies, as well as discussing diagnostic evaluation and workup, plan therapeutic interventions and future disposition of care. This includes any additional research needed to obtain further information in formulating the plan of care of this patient. This note was generated with a voice recognition program. Please excuse any errors which may have been overlooked during my review of this note. Sometimes these errors may affect the content or meaning of a given sentence.
== END 2020-12-02 10:39 | disposition home or self-care (01) ==
LOC: HO.US 10:38
PROVIDERS: PCP Nurse Practitioner Family; Visit Provider Advanced Practice Midwife
DX: O24.419 Gestational diabetes mellitus in pregnancy, unspecified control (principal); O99.213 Obesity complicating pregnancy, third trimester; E66.9 Obesity, unspecified; Z3A.33 33 weeks gestation of pregnancy
CPT/HCPCS: 76816; 99212

== ENCOUNTER → 2020-12-06 09:04 | Outpatient (BNVA) | payer OTHER, SELFPAY | PROVIDERS: Visit Provider Obstetrics & Gynecology | DX: O24.415 Gestational diabetes mellitus in pregnancy, controlled by oral hypoglycemic drugs (principal); O99.513 Diseases of the respiratory system complicating pregnancy, third trimester; J45.909 Unspecified asthma, uncomplicated; O99.340 Other mental disorders complicating pregnancy, unspecified trimester; F32.9 Major depressive disorder, single episode, unspecified; Z3A.33 33 weeks gestation of pregnancy | CPT/HCPCS: 99212 ==

== ENCOUNTER 2020-12-09 10:30 | Outpatient (REF) | payer OTHER, SELFPAY ==
--- NOTE | ~2020-12-09 | US_ITS ---
EXAMINATION: US OBSTETRICAL (BIOPHYSICAL PROFILE) CLINICAL INFORMATION: 25-year-old at 34.1 weeks of gestation Gestational diabetes on metformin COMPARISON: 12/02/2020 TECHNIQUE: Biophysical profile is performed over 30 minutes with assessment of breathing, gross body movement, tone, and qualitative amniotic fluid volume. FINDINGS: POSITION: Cephalic PLACENTA: Fundal, right AMNIOTIC FLUID INDEX: 20.1 cm CARDIAC ACTIVITY: 163 beats per minute BIOPHYSICAL PROFILE: Motion: 2 Tone: 2 Breathin Amniotic Fluid: 2 The total biophysical score is 8/8 US/US OB biophysical profile IMPRESSION: 1. Single intrauterine gestation in vertex position. 2. Reassuring BPP and SHABNAM Patient is currently on metformin 500 mg every morning and 1000 mg every afternoon. 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 We reviewed the target range. The fasting as well as postprandial values. She is to continue weekly testing. Thank you for allowing me to participate in her care. Total time 30 minutes. The time spent was devoted to counseling the patient about the disease and diagnosis, coordinating care including reviewing her records, pertinent lab data and studies, as well as discussing diagnostic evaluation and workup, plan therapeutic interventions and future disposition of care. This includes any additional research needed to obtain further information in formulating the plan of care of this patient. This note was generated with a voice recognition program. Please excuse any errors which may have been overlooked during my review of this note. Sometimes these errors may affect the content or meaning of a given sentence.
== END 2020-12-09 10:31 | disposition home or self-care (01) ==
LOC: HO.US 10:30
PROVIDERS: Visit Provider Advanced Practice Midwife
DX: O24.419 Gestational diabetes mellitus in pregnancy, unspecified control (principal)
CPT/HCPCS: 76819

== ENCOUNTER → 2020-12-13 13:11 | Outpatient (BNVA) | payer OTHER, SELFPAY | PROVIDERS: PCP Nurse Practitioner Family; Visit Provider Obstetrics & Gynecology | DX: O24.415 Gestational diabetes mellitus in pregnancy, controlled by oral hypoglycemic drugs (principal); O99.513 Diseases of the respiratory system complicating pregnancy, third trimester; J45.909 Unspecified asthma, uncomplicated; Z3A.34 34 weeks gestation of pregnancy | CPT/HCPCS: 99212 ==

== ENCOUNTER 2022-09-16 14:27 | Emergency (ER) | payer BC, SELFPAY ==
--- NOTE | 2022-09-16 14:33 | ED.BACK ---
HPI - Back Pain/Injury General Chief Complaint: Urogenital-Female <KIRTI Suh - Last Filed: 09/16/22 14:41> Stated Complaint: lower back pain <KIRTI Suh - Last Filed: 09/16/22 14:41> Time Seen by Provider: 09/16/22 15:11 <KIRTI Suh - Last Filed: 09/16/22 14:41> Source: patient <Precious Cueto NP - Last Filed: 09/16/22 16:06> Mode of arrival: ambulatory <FERCHO Meeks Last Filed: 09/16/22 16:06> Limitations: no limitations <FERCHO Meeks Last Filed: 09/16/22 16:06> History of Present Illness HPI Narrative: Patient is a 27-year-old female with history of asthma, SAB presenting with nausea and left lower back pain as well as vaginal bleeding since yesterday. Patient was seen at an urgent care on Saturday and diagnosed with a UTI, started on Macrobid at that time. She reports that her lower abdominal pain as well as dysuria have resolved, but she is now having nausea and lower back pain. She denies any vomiting or diarrhea. She denies any fevers. Last night she noted bright red vaginal bleeding. She states that since she had her IUD placed 1 year ago her vaginal bleeding is typically brown. She denies any other vaginal discharge or irritation. She denies any concern for STIs. She states that the Urgent Care has not contacted her regarding her urine culture results. <Precious Cueto NP - Last Filed: 09/16/22 16:06> MD elicited complaint: other (nausea, left lower back pain) <FERCHO Meeks Last Filed: 09/16/22 16:06> Onset (ago): day(s) <FERCHO Meeks Last Filed: 09/16/22 16:06> Quality: dull <FERCHO Meeks Last Filed: 09/16/22 16:06> Location: left lower back <FERCHO Meeks Last Filed: 05/07/23 16:06> Related Data Home Medications: Home Medications Medication Instructions Recorded Confirmed flu vac qs 2019(4 yr up)CD(PF) 60 ml IM 02/29/20 06/30/20 mcg(15 mcgx4)/0.5 mL IM syringe Previous Rx's Medication Instructions Recorded acetaminophen 500 mg tablet 500 mg PO Q6H PRN pain #14 tabs 04/12/20 (Tylenol Extra Strength) vitamin #56-iron 35 mg 1 cap PO BEDTIME #90 caps 05/17/20 and 5 mg-folic acid 1 mg-dha capsule cetirizine 10 mg capsule (Zyrtec) 10 mg PO DAILY PRN allergy 06/06/20 symptoms #30 caps fluticasone propionate 50 2 spray intranasal DAILY #16 grams 06/06/20 mcg/actuation nasal spray,suspension (Flonase Allergy Relief) albuterol sulfate 90 mcg/actuation 1 puff PO Q4H PRN bronchospasm 07/18/20 aerosol inhaler #8.5 grams aspirin 81 mg chewable tablet (St 162 mg PO DAILY #30 tabs 08/25/20 Ed[place]son Aspirin) omeprazole 20 mg capsule,delayed 20 mg PO DAILY 30 days #30 caps 10/18/20 release ferrous sulfate 325 mg (65 mg 325 mg PO DAILY #30 tabs 11/01/20 iron) tablet blood sugar diagnostic (FreeStyle #100 ea 11/11/20 Lite Strips) blood-glucose meter (FreeStyle #1 ea 11/11/20 Lite Meter kit) lancets 28 gauge (FreeStyle #100 ea 11/11/20 Lancets) metformin 500 mg tablet 1,000 mg PO DAILY 30 days #60 tabs 12/06/20 peak flow meter #1 ea 12/06/20 albuterol sulfate 2.5 mg/3 mL 2.5 mg (3 mL) inhalation Q6H 30 06/13/21 (0.083 %) solution for nebulization days #360 mL fluoxetine 20 mg capsule 20 mg PO DAILY 90 days #90 caps 01/10/22 cefuroxime axetil 250 mg tablet 250 mg PO BID #14 tabs 09/16/22 ondansetron 4 mg disintegrating 4 mg PO Q8H PRN nausea and 09/16/22 tablet vomiting #14 tabs <KIRTI Suh - Last Filed: 09/16/22 14:41> Allergies/Adverse Reactions: Allergies Allergy/AdvReac Type Severity Reaction Status Date / Time amoxicillin Allergy Unknown hives Verified 10/20/21 12:08 <KIRTI Suh - Last Filed: 09/16/22 14:41> Review of Systems Review of Systems: As per HPI. <Precious Cueto NP - Last Filed: 09/16/22 16:06> Yes all other systems are reviewed and are negative <Precious Cueto NP - Last Filed: 09/16/22 16:06> Constitutional: Constitutional: Reports as per HPI <Precious Cueto NP - Last Filed: 09/16/22 16:06> FOR[facility]LY [facility] Past Medical History Medical History: Medical History Asthma Cervical cancer screening Elevated LFTs HSV-1 infection Obesity Plantar warts Salivary stone <KIRTI Suh - Last Filed: 09/16/22 14:41> Surgical History: Surgical History History of removal of cyst <KIRTI Suh - Last Filed: 09/16/22 14:41> Family History Family History: Family History Father No problems noted. Mother No problems noted. Maternal Grandmother Diabetes mellitus Maternal Grandfather Cancer Paternal Grandfather No problems noted. Paternal Grandmother No problems noted. Brother No problems noted. Brother No problems noted. Brother No problems noted. Sister No problems noted. Sister No problems noted. Sister No problems noted. Sister No problems noted. <KIRTI Suh - Last Filed: 09/16/22 14:41> Social History Social History: Social History Household Members: Spouse Alcohol intake: never Advance Directives: No Advance Directives Information Provided: No <KIRTI Suh - Last Filed: 09/16/22 14:41> Physical Exam Vital Signs: Vital Signs: Last Vital Signs Temp 98.7 F 09/16/22 14:57 Pulse 103 H 09/16/22 14:57 Resp 17 09/16/22 14:57 BP 124/65 09/16/22 14:57 Pulse Ox 94 09/16/22 14:57 O2 Del Method Room Air 09/16/22 14:57 BMI result Body Mass Index 43.9 <KIRTI Suh - Last Filed: 09/16/22 14:41> Vital Signs: Last Vital Signs Temp 98.7 F 09/16/22 14:57 Pulse 103 H 09/16/22 14:57 Resp 17 09/16/22 14:57 BP 124/65 09/16/22 14:57 Pulse Ox 94 09/16/22 14:57 O2 Del Method Room Air 09/16/22 14:57 BMI result Body Mass Index 43.9 Vital signs have been reviewed and appear to be correct. Blood pressure normal. Heart rate mildly tachycardic. Respiratory rate normal. Temperature normal. Oxygen saturation normal. <Precious Cueto NP - Last Filed: 09/16/22 16:06> Const: General: cooperative, healthy appearing and no acute distress <Precious Cueto NP - Last Filed: 09/16/22 16:06> Orientation/consciousness: oriented to person, oriented to place, oriented to time and patient oriented x3 <Precious Cueto NP - Last Filed: 09/16/22 16:06> Limitations: no limitations <FERCHO Meeks Last Filed: 09/16/22 16:06> HEENT: Head: Yes normocephalic and Yes atraumatic <Precious Cueto NP - Last Filed: 09/16/22 16:06> Ears: external ears normal <FERCHO Meeks Last Filed: 09/16/22 16:06> General nose exam: Normal external nose present <FERCHO Meeks Last Filed: 09/16/22 16:06> Face and sinus: Yes face symmetric <FERCHO Meeks Last Filed: 09/16/22 16:06> Mouth: oropharynx normal and moist mucous membranes <FERCHO Meeks Last Filed: 09/16/22 16:06> Throat: Yes uvula midline <Precious Cueto NP - Last Filed: 09/16/22 16:06> Eyes: Pupils: Equal, round and reactive pupils present <Precious Cueto NP - Last Filed: 09/16/22 16:06> Neck: Neck: Yes normal visual inspection and Yes supple <Precious Cueto NP - Last Filed: 09/16/22 16:06> Resp: Effort & Inspection: normal respiratory effort and able to speak in complete sentences <Precious Cueto NP - Last Filed: 09/16/22 16:06> Auscultation: clear to auscultation bilaterally <Precious Cueto NP - Last Filed: 09/16/22 16:06> Cardio: Rate: regular rate <Precious Cueto NP - Last Filed: 09/16/22 16:06> Rhythm: regular rhythm <Precious Cueto NP - Last Filed: 09/16/22 16:06> Heart sounds: S1 normal heart sound present and S2 normal heart sound present <Precious Cueto NP - Last Filed: 09/16/22 16:06> GI: Palpation (GI): Soft to palpation and nontender <Precious Cueto NP - Last Filed: 09/16/22 16:06> Auscultation: normoactive bowel sounds <Precious Cueto NP - Last Filed: 09/16/22 16:06> : Other: Chaperoned by STEPHANIE Platt <Precious Cueto NP - Last Filed: 09/16/22 16:06> General: Yes no CVA tenderness <Precious Cueto NP - Last Filed: 09/16/22 16:06> External Female Exam: normal external appearance, normal appearance of the urethra, No externally tender, No external swelling and No lesion <Precious Cueto NP - Last Filed: 09/16/22 16:06> Speculum Exam - Vagina: normal appearance of the vagina, normal palpation, abnormal vaginal discharge bloody, not erythematous, no lesions, vaginal bleeding, no swelling and nontender <Precious Ceuto NP - Last Filed: 09/16/22 16:06> Speculum Exam - Cervix: normal appearance of the cervix, normal palpation, no lesions, no masses and nontender <Precious Cueto NP - Last Filed: 09/16/22 16:06> Bimanual exam- vagina & uterus: normal bimanual exam, normal palpation, normal palpation, No Cervical tenderness present and no cervical motion tenderness <Precious Cueto NP - Last Filed: 09/16/22 16:06> Bimanual Exam- Adnexa, other: normal adnexae and no tenderness <Precious Cueto NP - Last Filed: 09/16/22 16:06> OB/external & speculum: vaginal bleeding <Precious Cueto NP - Last Filed: 09/16/22 16:06> Back/Spine/Pelvis: Back: no CVA tenderness <Precious Cueto NP - Last Filed: 09/16/22 16:06> Thoracic/Lumbar Spine: thoracic and lumbar spine normal to inspection, thoraco-lumbar ROM normal, No thoracic spinal tenderness and No lumbar spinal tenderness <Precious Cueto NP - Last Filed: 09/16/22 16:06> Sacroiliac joints: on the left nontender <Precious Cueto NP - Last Filed: 09/16/22 16:06> Skin: General skin exam: elasticity normal and turgor normal <Precious Cueto NP - Last Filed: 09/16/22 16:06> Neuro: General: oriented to person, oriented to place, oriented to time, patient oriented x3, moves all extremities, no focal motor deficits and CN's II-XI intact bilaterally <Precious Cueto NP - Last Filed: 09/16/22 16:06> Cranial nerves: Yes Equal, round and reactive pupils present <Precious Cueto NP - Last Filed: 09/16/22 16:06> Cognition (Neuro): normal cognition <Precious Cueto NP - Last Filed: 09/16/22 16:06> Extrem: General: Yes full ROM, Yes no pedal edema and Yes no calf tenderness <Precious Cueto NP - Last Filed: 09/16/22 16:06> Psych: Mental Status: mental status grossly normal <Precious Cueto NP - Last Filed: 09/16/22 16:06> Affect: normal affect <Precious Cuteo NP - Last Filed: 09/16/22 16:06> Thought process: Normal thought process present <Precious Cueto NP - Last Filed: 09/16/22 16:06> Course Course Course Narrative: RME: 27yo F w/PMHx asthma, currently w/UTI on Macrobid since 09/12/22 from , now c/o nausea, hematuria, vaginal bleeding & left low back pain x today. Denies fever, chills, vomiting, vaginal d/c labs, UA, U-preg ordered Full HPI, ROS and PE to be performed by primary ED provider. <KIRTI Suh - Last Filed: 09/16/22 14:41> RME: 27yo F w/PMHx asthma, currently w/UTI on Macrobid since 09/12/22 from , now c/o nausea, hematuria, vaginal bleeding & left low back pain x today. Denies fever, chills, vomiting, vaginal d/c labs, UA, U-preg ordered Full HPI, ROS and PE to be performed by primary ED provider. 15:54 Labs unremarkable, urine positive for 1+ leukocytes, 3+ blood, hcg negative. Pelvic exam unremarkable, no adnexal or cervical motion tenderness. Will notify patient with any positive swab results. Will change antibiotics from Macrobid to cefuroxime 250 BID x 7 days, Zofran for nausea, follow up with [facility] and PCP. The patient does have an amoxicillin allergy but states she has tolerated a cephalosporin before. Return precautions discussed at bedside. <Precious Cueto NP - Last Filed: 09/16/22 16:06> Medical Decision Making Medical Decision Making MDM Narrative: Patient is a 27-year-old female with history of asthma, SAB presenting with nausea and left lower back pain as well as vaginal bleeding since yesterday after being started on Macrobid for a UTI. On exam patient is A&O x3, nontoxic appearing, vital signs within normal limits, afebrile, abdomen soft nontender Brittnee, no lumbar spinal tenderness, full range of motion. Concern for , spontaneous , abnormal uterine bleeding. Less likely pyelonephritis as patient is afebrile, no CVA tenderness. Plan: labs, hcg, urinalysis, pelvic exam, CTNG, BV Please refer to course for remaining clinical decision making. <Precious Cueto NP - Last Filed: 09/16/22 16:06> Differential Diagnosis Differential Diagnoses: The differential diagnosis associated with the presentation includes <Precious Cueto NP - Last Filed: 09/16/22 16:06> As above. <Precious Cueto NP - Last Filed: 09/16/22 16:06> Lab Data MDM Lab Attestation statement: I reviewed the patient's lab results. <Precious Cueto NP - Last Filed: 09/16/22 16:06> Result Diagrams: 09/16/22 14:50 09/16/22 14:50 <KIRTI Suh - Last Filed: 09/16/22 14:41> Labs: Lab Results 09/16/22 09/16/22 09/16/22 Range/Units 14:50 14:50 14:50 WBC 8.9 (4.8-10.8) X10*3/uL RBC 4.65 (4.20-5.50) X10*6/uL Hgb 12.8 (12.0-16.0) g/dl Hct 39.4 (37.0-47.0) % MCV 84.7 (80.0-98.0) fL MCH 27.5 (27.0-33.0) pg MCHC 32.5 (31.0-35.0) g/dl RDW 13.2 (11.0-16.0) % Plt Count 268 (160-400) X10*3/uL MPV 10.0 (9.4-12.3) fL Immature Gran % (Auto) 0.2 (0.0-0.4) % Neut % (Auto) 63.3 (45-73) % Lymph % (Auto) 19.8 L (20-40) % [place] % (Auto) 9.8 (2-11) % Eos % (Auto) 6.2 H (0-4) % Baso % (Auto) 0.7 (0-2) % Lymph # (Auto) 1.8 (1.2-4.9) X10*3/uL [place] # (Auto) 0.9 (0.1-1.2) X10*3/uL Eos # (Auto) 0.6 H (0.0-0.4) X10*3/uL Baso # (Auto) 0.1 (0.0-0.2) X10*3/uL Abs Immat Gran (auto) 0.02 (0.00-0.03) X10*3/uL Absolute Neuts (auto) 5.6 (2.0-8.3) x10*3/uL Absolute Nucleated RBC 0.000 (0.0-0.012) X10*3/uL Nucleated RBC % (auto) 0.0 (0.0-0.2) /100WBC Sodium 140 (135-145) mmol/L Potassium 4.0 (3.3-5.1) mmol/L Chloride 108 (96-108) mmol/L Carbon Dioxide 24 (22-29) mmol/L Anion Gap 12 (12-20) BUN 10 (9-16) mg/dL Creatinine 0.72 (0.5-1.4) mg/dL Estim Creat Clear Calc 137.5 Estimated GFR > 60 Random Glucose 82 (60-115) mg/dL Calcium 8.8 (8.4-10.2) mg/dL Total Bilirubin 0.3 (0.0-1.0) mg/dL Direct Bilirubin 0.1 (0.0-0.5) mg/dL AST 18 (5-31) U/L ALT 27 (0-31) U/L Alkaline Phosphatase 88 (39-117) U/L Total Protein 7.0 (6.5-8.0) g/dL Albumin 3.8 (3.5-5.0) g/dL Lipase 27 (8-78) U/L Urine Color Dark Yellow Urine Appearance Turbid Urine pH 5.5 (5.0-9.0) Ur Specific [place] 1.025 (1.005-1.025) Urine Protein Trace (Neg-Trace) mg/dL Urine Glucose (UA) Negative (Negative) mg/dL Urine Ketones Trace (Negative) mg/dL Urine Blood Large (3+) H (Negative) Urine Nitrite Negative (Negative) Ur Leukocyte Esterase Small (1+) H (Negative) Urine Test (NEGATIVE) 09/16/22 Range/Units 14:50 WBC (4.8-10.8) X10*3/uL RBC (4.20-5.50) X10*6/uL Hgb (12.0-16.0) g/dl Hct (37.0-47.0) % MCV (80.0-98.0) fL MCH (27.0-33.0) pg MCHC (31.0-35.0) g/dl RDW (11.0-16.0) % Plt Count (160-400) X10*3/uL MPV (9.4-12.3) fL Immature Gran % (Auto) (0.0-0.4) % Neut % (Auto) (45-73) % Lymph % (Auto) (20-40) % [place] % (Auto) (2-11) % Eos % (Auto) (0-4) % Baso % (Auto) (0-2) % Lymph # (Auto) (1.2-4.9) X10*3/uL [place] # (Auto) (0.1-1.2) X10*3/uL Eos # (Auto) (0.0-0.4) X10*3/uL Baso # (Auto) (0.0-0.2) X10*3/uL Abs Immat Gran (auto) (0.00-0.03) X10*3/uL Absolute Neuts (auto) (2.0-8.3) x10*3/uL Absolute Nucleated RBC (0.0-0.012) X10*3/uL Nucleated RBC % (auto) (0.0-0.2) /100WBC Sodium (135-145) mmol/L Potassium (3.3-5.1) mmol/L Chloride (96-108) mmol/L Carbon Dioxide (22-29) mmol/L Anion Gap (12-20) BUN (9-16) mg/dL Creatinine (0.5-1.4) mg/dL Estim Creat Clear Calc Estimated GFR Random Glucose (60-115) mg/dL Calcium (8.4-10.2) mg/dL Total Bilirubin (0.0-1.0) mg/dL Direct Bilirubin (0.0-0.5) mg/dL AST (5-31) U/L ALT (0-31) U/L Alkaline Phosphatase (39-117) U/L Total Protein (6.5-8.0) g/dL Albumin (3.5-5.0) g/dL Lipase (8-78) U/L Urine Color Urine Appearance Urine pH (5.0-9.0) Ur Specific [place] (1.005-1.025) Urine Protein (Neg-Trace) mg/dL Urine Glucose (UA) (Negative) mg/dL Urine Ketones (Negative) mg/dL Urine Blood (Negative) Urine Nitrite (Negative) Ur Leukocyte Esterase (Negative) Urine Test NEGATIVE (NEGATIVE) <KIRTI Suh - Last Filed: 09/16/22 14:41> Lab Results 09/16/22 09/16/22 09/16/22 Range/Units 14:50 14:50 14:50 WBC 8.9 (4.8-10.8) X10*3/uL RBC 4.65 (4.20-5.50) X10*6/uL Hgb 12.8 (12.0-16.0) g/dl Hct 39.4 (37.0-47.0) % MCV 84.7 (80.0-98.0) fL MCH 27.5 (27.0-33.0) pg MCHC 32.5 (31.0-35.0) g/dl RDW 13.2 (11.0-16.0) % Plt Count 268 (160-400) X10*3/uL MPV 10.0 (9.4-12.3) fL Immature Gran % (Auto) 0.2 (0.0-0.4) % Neut % (Auto) 63.3 (45-73) % Lymph % (Auto) 19.8 L (20-40) % [place] % (Auto) 9.8 (2-11) % Eos % (Auto) 6.2 H (0-4) % Baso % (Auto) 0.7 (0-2) % Lymph # (Auto) 1.8 (1.2-4.9) X10*3/uL [place] # (Auto) 0.9 (0.1-1.2) X10*3/uL Eos # (Auto) 0.6 H (0.0-0.4) X10*3/uL Baso # (Auto) 0.1 (0.0-0.2) X10*3/uL Abs Immat Gran (auto) 0.02 (0.00-0.03) X10*3/uL Absolute Neuts (auto) 5.6 (2.0-8.3) x10*3/uL Absolute Nucleated RBC 0.000 (0.0-0.012) X10*3/uL Nucleated RBC % (auto) 0.0 (0.0-0.2) /100WBC Sodium 140 (135-145) mmol/L Potassium 4.0 (3.3-5.1) mmol/L Chloride 108 (96-108) mmol/L Carbon Dioxide 24 (22-29) mmol/L Anion Gap 12 (12-20) BUN 10 (9-16) mg/dL Creatinine 0.72 (0.5-1.4) mg/dL Estim Creat Clear Calc 137.5 Estimated GFR > 60 Random Glucose 82 (60-115) mg/dL Calcium 8.8 (8.4-10.2) mg/dL Total Bilirubin 0.3 (0.0-1.0) mg/dL Direct Bilirubin 0.1 (0.0-0.5) mg/dL AST 18 (5-31) U/L ALT 27 (0-31) U/L Alkaline Phosphatase 88 (39-117) U/L Total Protein 7.0 (6.5-8.0) g/dL Albumin 3.8 (3.5-5.0) g/dL Lipase 27 (8-78) U/L Urine Color Dark Yellow Urine Appearance Turbid Urine pH 5.5 (5.0-9.0) Ur Specific [place] 1.025 (1.005-1.025) Urine Protein Trace (Neg-Trace) mg/dL Urine Glucose (UA) Negative (Negative) mg/dL Urine Ketones Trace (Negative) mg/dL Urine Blood Large (3+) H (Negative) Urine Nitrite Negative (Negative) Ur Leukocyte Esterase Small (1+) H (Negative) Urine Test (NEGATIVE) 09/16/22 Range/Units 14:50 WBC (4.8-10.8) X10*3/uL RBC (4.20-5.50) X10*6/uL Hgb (12.0-16.0) g/dl Hct (37.0-47.0) % MCV (80.0-98.0) fL MCH (27.0-33.0) pg MCHC (31.0-35.0) g/dl RDW (11.0-16.0) % Plt Count (160-400) X10*3/uL MPV (9.4-12.3) fL Immature Gran % (Auto) (0.0-0.4) % Neut % (Auto) (45-73) % Lymph % (Auto) (20-40) % [place] % (Auto) (2-11) % Eos % (Auto) (0-4) % Baso % (Auto) (0-2) % Lymph # (Auto) (1.2-4.9) X10*3/uL [place] # (Auto) (0.1-1.2) X10*3/uL Eos # (Auto) (0.0-0.4) X10*3/uL Baso # (Auto) (0.0-0.2) X10*3/uL Abs Immat Gran (auto) (0.00-0.03) X10*3/uL Absolute Neuts (auto) (2.0-8.3) x10*3/uL Absolute Nucleated RBC (0.0-0.012) X10*3/uL Nucleated RBC % (auto) (0.0-0.2) /100WBC Sodium (135-145) mmol/L Potassium (3.3-5.1) mmol/L Chloride (96-108) mmol/L Carbon Dioxide (22-29) mmol/L Anion Gap (12-20) BUN (9-16) mg/dL Creatinine (0.5-1.4) mg/dL Estim Creat Clear Calc Estimated GFR Random Glucose (60-115) mg/dL Calcium (8.4-10.2) mg/dL Total Bilirubin (0.0-1.0) mg/dL Direct Bilirubin (0.0-0.5) mg/dL AST (5-31) U/L ALT (0-31) U/L Alkaline Phosphatase (39-117) U/L Total Protein (6.5-8.0) g/dL Albumin (3.5-5.0) g/dL Lipase (8-78) U/L Urine Color Urine Appearance Urine pH (5.0-9.0) Ur Specific [place] (1.005-1.025) Urine Protein (Neg-Trace) mg/dL Urine Glucose (UA) (Negative) mg/dL Urine Ketones (Negative) mg/dL Urine Blood (Negative) Urine Nitrite (Negative) Ur Leukocyte Esterase (Negative) Urine Test NEGATIVE (NEGATIVE) <Precious Cueto NP - Last Filed: 09/16/22 16:06> External Record Review External record reviewed: Inpatient record, Office record and Outpatient record <Precious Cueto NP - Last Filed: 09/16/22 16:06> Prescription Management I considered prescription management with: Antibiotic and Other (zofran) <Precious Cueto NP - Last Filed: 09/16/22 16:06> Discharge Plan Discharge Clinical Impression: UTI (urinary tract infection), Vaginal bleeding <KIRTI Suh - Last Filed: 09/16/22 14:41> Patient Disposition: Home, Self-Care <KIRTI Suh - Last Filed: 09/16/22 14:41> Instructions: Urinary Tract Infection in Women (DC) <KIRTI Suh - Last Filed: 09/16/22 14:41> Additional Instructions: You have been evaluated in the emergency department today for your nausea, low back pain and vaginal bleeding. Your evaluation does not show any signs of a medical condition requiring emergent intervention at this time. Your antibiotics to treat your UTI are being changed today. Stop taking the Macrobid and begin taking the new antibiotic today. You are also being prescribed ondansetron which you may take every 8 hours as needed for nausea. Follow-up with your [facility] regarding your vaginal bleeding this week. You will be contacted with any positive results. Return to the emergency department if you experience worsening or uncontrolled pain, uncontrolled or worsening vaginal bleeding, shortness of breath, feeling lightheaded, chest tightness, fever, vomiting or for any other concerning symptoms. <KIRTI Suh - Last Filed: 09/16/22 14:41> Prescriptions: New cefuroxime axetil 250 mg tablet 250 mg PO BID Qty: 14 0RF ondansetron 4 mg tablet,disintegrating 4 mg PO Q8H PRN (Reason: nausea and vomiting) Qty: 14 0RF No Action albuterol sulfate 90 mcg/actuation HFA aerosol inhaler 1 puff PO Q4H PRN (Reason: bronchospasm) Qty: 8.5 2RF omeprazole 20 mg capsule,delayed release(DR/EC) 20 mg PO DAILY 30 Days Qty: 30 1RF ferrous sulfate 325 mg (65 mg iron) tablet 325 mg PO DAILY Qty: 30 5RF (DME) FreeStyle Lite Strips Strip See Rx Instructions .MEDSUPPLY Qty: 100 1RF Rx Instructions: As directed (DME) lancets [FreeStyle Lancets] 28 gauge misc See Rx Instructions miscellaneous .MEDSUPPLY Qty: 100 0RF Rx Instructions: As directed (DME) blood-glucose meter [FreeStyle Lite Meter] Kit See Rx Instructions miscellaneous .MEDSUPPLY Qty: 1 0RF Rx Instructions: As directed albuterol sulfate 2.5 mg /3 mL (0.083 %) solution for nebulization 2.5 mg inhalation Q6H 30 Days Qty: 360 0RF fluoxetine 20 mg capsule 20 mg PO DAILY 90 Days Qty: 90 0RF acetaminophen [Tylenol Extra Strength] 500 mg tablet 500 mg PO Q6H PRN (Reason: pain) Qty: 14 0RF Zyrtec 10 mg capsule 10 mg PO DAILY PRN (Reason: allergy symptoms) Qty: 30 0RF fluticasone propionate [Flonase Allergy Relief] 50 mcg/actuation spray,suspension 2 spray intranasal DAILY Qty: 16 0RF Rx Instructions: administer into each nostril Flucelvax Quad [id number] (PF) 60 mcg (15 mcg x 4)/0.5 mL syringe IM PNV #[id number] acid-dha 35 mg iron-5 mg iron-1 mg capsule 1 cap PO BEDTIME Qty: 90 3RF aspirin [[place] Aspirin] 81 mg tablet,chewable 162 mg PO DAILY Qty: 30 6RF Rx Instructions: take daily until two weeks metformin 500 mg tablet 1,000 mg PO DAILY 30 Days Qty: 60 0RF Rx Instructions: Take 1 tablet at bedtime (DME) peak flow meter Device See Rx Instructions .ROUTE .MEDSUPPLY Qty: 1 0RF Rx Instructions: As directed <KIRTI Suh - Last Filed: 09/16/22 14:41>
[2022-09-16 14:34] VITALS: BP 143/87; PULSE 100; RESP 19; TEMP 36.6; O2SAT 100; BMI 43.9
[2022-09-16 14:57] VITALS: BP 124/65; PULSE 103; RESP 17; TEMP 37.1; O2SAT 94
[2022-09-16 15:01] LABS: MANUAL DIFF FLAG NO
[2022-09-16 15:07] LABS: Basophils Absolute Auto 0.1 X10*3/uL (0.0-0.2); Basophils Percent Auto 0.7 % (0-2); Eosinophils Absolute Auto 0.6 X10*3/uL (0.0-0.4); Eosinophils Percent Auto 6.2 % (0-4); Hematocrit 39.4 % (37.0-47.0); Hemoglobin 12.8 g/dl (12.0-16.0); Imm Gran Abs Auto 0.02 X10*3/uL (0.00-0.03); Imm Gran Pct Auto 0.2 % (0.0-0.4); Lymphocytes Absolute Auto 1.8 X10*3/uL (1.2-4.9); Lymphocytes Percent Auto 19.8 % (20-40); Mean Corpuscular HGB Conc 32.5 g/dl (31.0-35.0); Mean Corpuscular Hemoglobin 27.5 pg (27.0-33.0); Mean Corpuscular Volume 84.7 fL (80.0-98.0); Monocytes Absolute Auto 0.9 X10*3/uL (0.1-1.2); Monocytes Percent Auto 9.8 % (2-11); Neutrophils Absolute Auto 5.6 x10*3/uL (2.0-8.3); Neutrophils Percent Auto 63.3 % (45-73); Platelet Count 268 X10*3/uL (160-400); Red Blood Count 4.65 X10*6/uL (4.20-5.50); Red Cell Distribution Width 13.2 % (11.0-16.0); White Blood Count 8.9 X10*3/uL (4.8-10.8)
[2022-09-16 15:23] LABS: Appearance Urine Turbid; Color Urine Dark Yellow; Glucose Urine UA Negative (Negative); Leukocyte Esterase Urine Small (1+) (Negative); Nitrite Urine Negative (Negative); PH 5.5 (5.0-9.0); Specific Gravity - Urine 1.025 (1.005-1.025); UMIC TRIGGER UACC YES; Urine Blood Large (3+) (Negative); Urine Ketones Trace mg/dL (Negative); Urine Protein Trace mg/dL (Neg-Trace)
[2022-09-16 15:26] LABS: UPreg QC Valid YES; Urine Pregnancy NEGATIVE (NEGATIVE)
[2022-09-16 15:28] LABS: Alanine Aminotransferase 27 U/L (0-31); Albumin Level 3.8 g/dL (3.5-5.0); Alkaline Phosphatase 88 U/L (39-117); Anion Gap 12 (12-20); Aspartate Amino Transferase 18 U/L (5-31); Bilirubin Direct 0.1 mg/dL (0.0-0.5); Bilirubin Total 0.3 mg/dL (0.0-1.0); Blood Urea Nitrogen 10 mg/dL (9-16); Calcium 8.8 mg/dL (8.4-10.2); Carbon Dioxide 24 mmol/L (22-29); Chloride 108 mmol/L (96-108); Creatinine Clr Calc Pharmacy 137.5; Estimated Glomerular Filt Rate > 60; Glucose Random 82 mg/dL (60-115); Lipase 27 U/L (8-78); Sodium 140 mmol/L (135-145)
[2022-09-16 15:37] LABS: Bacteria Urine None Seen (None Seen); Hyaline Casts Urine 0-2 /LPF (0-2); RBC Urine >20 /HPF (0-2); UACC Culture Trigger YES; WBC Urine 0-5 /HPF (0-5)
[2022-09-17 03:09] LABS: CT PCR NOT DETECTED (Not Detect.); NG PCR NOT DETECTED (Not Detect.)
== END 2022-09-16 16:14 | disposition home or self-care (01) ==
PROVIDERS: Physician Assistant; Registered Nurse Emergency; Emergency Provider Emergency Medicine; PCP Nurse Practitioner Family
DX: N39.0 Urinary tract infection, site not specified (principal); N93.9 Abnormal uterine and vaginal bleeding, unspecified; M54.50 Low back pain, unspecified; Z79.899 Other long term (current) drug therapy
CPT/HCPCS: 0353U; 36415; 80048; 80076; 81001; 81025; 83690; 85025; 87086; 87480; 87510; 87660; 99283

== ENCOUNTER 2023-02-08 20:28 | Emergency (ER) | payer BC, SELFPAY ==
--- NOTE | ~2023-02-08 | US_ITS ---
EXAMINATION: US PELVIS CLINICAL INFORMATION: Lower abdominal pain. IUD. COMPARISON: Ultrasound OB 05/26/2020 TECHNIQUE: Ultrasound of the pelvis is performed using both transabdominal and transvaginal transducers along with Doppler. Transvaginal imaging is performed due to inadequate visualization transabdominally. FINDINGS: Uterus: The uterus is anteverted, anteflexed and measures 8.4 x 3.4 x 4.7 cm The double wall endometrial thickness measures 0.8 cm.. The uterus is smooth in contour and has normal myometrial echogenicity. No visible fibroid. There is IUD within the endometrial canal in correct position. Adnexa: Both ovaries are visualized. There is normal color flow to the adnexa. There is no ovarian torsion. There is no pelvic ascites or fluid collection. Right ovary measures 2.8 x 1.9 x 2.4 cm and volume 5.3 mL. No focal lesion seen. Left ovary measures 4.3 x 2.0 x 2.8 cm and volume 12.6 mL. There is new isoechoic area in the left ovary measuring 2.5 x 1.0 x 2.5 cm, complex cyst versus. There There is no free fluid in the cul-de-sac. US/US pelvic and transvaginal IMPRESSION: Unremarkable uterus. IUD is in correct position within the endometrial canal. Likely complex cysts or dermoid left ovary. Unremarkable right ovary.
[2023-02-08 20:30] VITALS: BP 132/75; PULSE 77; RESP 17; TEMP 37.2; O2SAT 98; BMI 41.9
--- NOTE | 2023-02-08 20:31 | ED_ITS ---
HPI - Female Genitourinary General Chief complaint: Vaginal Bleeding Stated complaint: Vaginal pain/IUD inserted Time Seen by Provider: 02/08/23 20:52 History of Present Illness HPI Narrative: 27-year-old female, , presents complaining of lower abdominal pain that began approximately 6:00 a.m. this morning. She reports gradual onset, dull, aching cramping. It has been constant with waxing waning intensity. It has not radiated. She has not tried any medication for this. She does report that it was worse when she was having a bowel movement. He does report some mild urinary urgency and today while wiping noticed some vaginal discharge. No vaginal bleeding. She has had a history of bacterial vaginosis in the past but never pain associated with this. In addition, the patient has an IUD is concerned about her placement. She is not currently sexually active with her for several weeks. She does report mild dyspareunia at that time though. She denies any trauma. Patient has been eating and drinking normally. She has had normal bowel movements, no constipation. Patient is otherwise feeling well. Related Data Home Medications Medication Instructions Recorded Confirmed flu vac qs 2019(4 yr up)CD(PF) 60 ml IM 02/29/20 10/03/22 mcg(15 mcgx4)/0.5 mL IM syringe omeprazole 20 mg capsule,delayed 20 mg PO DAILY PRN 10/03/22 10/03/22 release Previous Rx's Medication Instructions Recorded fluticasone propionate 50 2 spray intranasal DAILY #16 grams 06/06/20 mcg/actuation nasal spray,suspension (Flonase Allergy Relief) albuterol sulfate 90 mcg/actuation 1 puff PO Q4H PRN bronchospasm 07/18/20 aerosol inhaler #8.5 grams blood sugar diagnostic (FreeStyle #100 ea 11/11/20 Lite Strips) blood-glucose meter (FreeStyle #1 ea 11/11/20 Lite Meter kit) lancets 28 gauge (FreeStyle #100 ea 11/11/20 Lancets) peak flow meter #1 ea 12/06/20 albuterol sulfate 2.5 mg/3 mL 2.5 mg (3 mL) inhalation Q6H 30 06/13/21 (0.083 %) solution for nebulization days #360 mL fluoxetine 40 mg capsule 40 mg PO DAILY 90 days #90 caps 10/29/22 cephalexin 500 mg capsule 500 mg PO QID 7 days #28 caps 02/09/23 Allergies Allergy/AdvReac Type Severity Reaction Status Date / Time amoxicillin Allergy Unknown hives Verified 10/03/22 11:11 Review of Systems Review of Systems: Constitutional: No Weight loss, No Fever, No Chills, No Night Sweats, No Fatigue, No Malaise Cardiovascular: No Chest Pain, No SOB, No Edema, No Palpitations Respiratory: No Cough, No Sputum, No Dyspnea Gastrointestinal: No Nausea, No Vomiting, No Diarrhea, No Constipation, +Abdominal pain Genitourinary: No irregular bleeding, No Dysuria, No Hematuria, No Flank Pain, +urgency, +vaginal discharge Musculoskeletal: No joint pain, No Myalgias, No Joint Swelling Skin: No Skin Lesions, No rash PMFSH Past Medical History Medical History Elevated LFTs Obesity Cervical cancer screening Salivary stone Asthma Plantar warts HSV-1 infection Surgical History History of removal of cyst Family History Family History Father No problems noted. Mother Mental health disorder Maternal Grandmother Diabetes mellitus Substance use disorder Mental health disorder Maternal Grandfather Cancer Substance use disorder Paternal Grandfather No problems noted. Paternal Grandmother No problems noted. Brother No problems noted. Brother No problems noted. Brother Mental health disorder Sister No problems noted. Sister No problems noted. Sister No problems noted. Sister No problems noted. Social History Social History Household Members: Spouse Housing: House Alcohol intake: never Patient Tobacco Use Status: Never used Tobacco Smoked in Last 30 Days: No e-Cigarette/Vaping Use: Never Used Second Hand Smoke Exposure: No Use of substances other than those prescribed or required for medical reasons: No Advance Directives: No Advance Directives Information Provided: No Patient : No service: No Current occupational status: employed Current occupation: [employer] Current occupational exposures/hazards: No Cognitive needs: No Hearing needs: No Vision needs: No Physical Exam Vital Signs: Vital Signs: Last Vital Signs Temp 98.3 F 02/08/23 23:49 Pulse 79 02/08/23 23:49 Resp 16 02/08/23 23:49 BP 118/67 02/08/23 23:49 Pulse Ox 97 02/08/23 23:49 O2 Del Method Room Air 02/08/23 23:49 BMI result Body Mass Index 41.9 Const: General: cooperative, alert and awake Resp: Effort & Inspection: normal respiratory effort Auscultation: clear to auscultation bilaterally Cardio: Rate: regular rate Rhythm: regular rhythm GI: Other: Abdomen is diffusely soft. There is mild suprapubic tenderness. There is no peritoneal signs. No CVA tenderness. Skin: General skin exam: no rashes or lesions noted Course Course Course Narrative: 06:00 awoke with pelvic pain, improved throughout the day, and then worsening tonight. No vaginal bleeding. abnormal vaginal discharge. Denies concern for STI. IUD placed Mar 2021, has not performed any string checks. Pain radiating into lower back, dysuria. Plan: labs, U/A, additional testing deferred to primary provider Reevaluation(s) Reevaluation #1: Pelvic ultrasound according to wafer fab technician, no acute process, IUD in place. Time: 21:44 Reevaluation #2: Urinalysis returned, given the patient's symptoms, will treat the. First dose of Keflex given now. Discharge with prescription. Reviewed all discharge instructions. Patient will follow-up with her OBGYN, Dr. Wong. Time: 01:15 Medical Decision Making Medical Decision Making [facility] Narrative: 27-year-old female with suprapubic pain. Check urinalysis, pelvic ultrasound for IUD placement or other pathology, hCG, and pelvic exam. Differential Diagnosis Differential Diagnoses: The differential diagnosis associated with the presentation includes IBD displacement UTI Vaginitis Ectopic Lab Data [facility] Lab Attestation statement: I reviewed the patient's lab results. Labs: Lab Results 02/09/23 Range/Units 00:24 Urine Color Yellow Urine Appearance Cloudy Urine pH 6.0 (5.0-9.0) Ur Specific [place] >= 1.030 H (1.005-1.025) Urine Protein Negative (Neg-Trace) mg/dL Urine Glucose (UA) Negative (Negative) mg/dL Urine Ketones Trace (Negative) mg/dL Urine Blood Negative (Negative) Urine Nitrite Negative (Negative) Ur Leukocyte Esterase Moderate (2+) H (Negative) Urine RBC 0-2 (0-2) /HPF Urine WBC 21-50 H (0-5) /HPF Ur Squamous Epith Cells 3-5 (0-2) /HPF Urine Bacteria 4+ (None Seen) Hyaline Casts 3-5 (0-2) /LPF Urine Test NEGATIVE (NEGATIVE) Radiology Impression Discussion of test interpretation with radiology: I have reviewed the radiologist's reading. Radiologist Impression: [address] [address] Ultrasound Report Signed Patient: Katherin Rouse MR#: [id number] : 1995 Acct:[id number] Age/Sex: 27 / F ADM Date: 02/08/23 Loc: HO.ED Attending Dr: Ordering Physician: Malcolm Jiménez Date of Service: 02/08/23 Procedure(s): US pelvic and transvaginal Accession Number(s): [id number] cc: Mikhail Crabtree DIRECTOR OF EVENT MANAGEMENT-BC; Malcolm Jiménez~ EXAMINATION: US PELVIS CLINICAL INFORMATION: Lower abdominal pain. IUD. COMPARISON: Ultrasound OB 05/26/2020 TECHNIQUE: Ultrasound of the pelvis is performed using both transabdominal and transvaginal transducers along with Doppler. Transvaginal imaging is performed due to inadequate visualization transabdominally. FINDINGS: Uterus: The uterus is anteverted, anteflexed and measures 8.4 x 3.4 x 4.7 cm The double wall endometrial thickness measures 0.8 cm.. The uterus is smooth in contour and has normal myometrial echogenicity. No visible fibroid. There is IUD within the endometrial canal in correct position. Adnexa: Both ovaries are visualized. There is normal color flow to the adnexa. There is no ovarian torsion. There is no pelvic ascites or fluid collection. Right ovary measures 2.8 x 1.9 x 2.4 cm and volume 5.3 mL. No focal lesion seen. Left ovary measures 4.3 x 2.0 x 2.8 cm and volume 12.6 mL. There is new isoechoic area in the left ovary measuring 2.5 x 1.0 x 2.5 cm, complex cyst versus. There There is no free fluid in the cul-de-sac. US/US pelvic and transvaginal IMPRESSION: Unremarkable uterus. IUD is in correct position within the endometrial canal. Likely complex cysts or dermoid left ovary. Unremarkable right ovary. Dictated By: Anant Denson MD Signed By: <Electronically signed by Anant Denson MD in OV> 02/08/232208 DD/ 18 TD/TT: Machine Assembler: [facility] Discharge Plan Discharge Clinical Impression: Abdominal pain, suprapubic, Dysuria Patient Disposition: Home, Self-Care Instructions: Dysuria (ED) Additional Instructions: Keflex as directed. Finish all antibiotics. Follow-up with your OBGYN. Call this week to schedule a follow-up appointment. Follow-up with your primary care provider. Call this week to schedule a follow- up appointment. Return to the emergency department if you have any worsening of symptoms, or any concerns. Get well soon! Prescriptions: New cephalexin 500 mg capsule 500 mg PO QID 7 Days Qty: 28 0RF No Action albuterol sulfate 90 mcg/actuation HFA aerosol inhaler 1 puff PO Q4H PRN (Reason: bronchospasm) Qty: 8.5 2RF (DME) FreeStyle Lite Strips Strip See Rx Instructions .MEDSUPPLY Qty: 100 1RF Rx Instructions: As directed (DME) lancets [FreeStyle Lancets] 28 gauge misc See Rx Instructions miscellaneous .MEDSUPPLY Qty: 100 0RF Rx Instructions: As directed (DME) blood-glucose meter [FreeStyle Lite Meter] Kit See Rx Instructions miscellaneous .MEDSUPPLY Qty: 1 0RF Rx Instructions: As directed albuterol sulfate 2.5 mg /3 mL (0.083 %) solution for nebulization 2.5 mg inhalation Q6H 30 Days Qty: 360 0RF fluoxetine 40 mg capsule 40 mg PO DAILY 90 Days Qty: 90 2RF fluticasone propionate [Flonase Allergy Relief] 50 mcg/actuation spray,suspension 2 spray intranasal DAILY Qty: 16 0RF Rx Instructions: administer into each nostril Flucelvax Quad (PF) 60 mcg (15 mcg x 4)/0.5 mL syringe IM omeprazole 20 mg capsule,delayed release(DR/EC) 20 mg PO DAILY PRN (DME) peak flow meter Device See Rx Instructions .ROUTE .[facility] Qty: 1 0RF Rx Instructions: As directed
[2023-02-08 23:49] VITALS: BP 118/67; PULSE 79; RESP 16; TEMP 36.8; O2SAT 97
[2023-02-09 01:02] LABS: Appearance Urine Cloudy; Color Urine Yellow; Glucose Urine UA Negative (Negative); Leukocyte Esterase Urine Moderate (2+) (Negative); Nitrite Urine Negative (Negative); Specific Gravity - Urine >= 1.030 (1.005-1.025); UMIC TRIGGER UACC YES; UPreg QC Valid YES; Urine Blood Negative (Negative); Urine Ketones Trace mg/dL (Negative); Urine Pregnancy NEGATIVE (NEGATIVE); Urine Protein Negative (Neg-Trace)
[2023-02-09 01:07] LABS: Bacteria Urine 4+ (None Seen); RBC Urine 0-2 /HPF (0-2); UACC Culture Trigger YES; WBC Urine 21-50 /HPF (0-5)
[2023-02-09] MEDS: cephALEXin 500 MG CAPSULE PO (01:20)
[2023-02-09 04:50] LABS: CT PCR NOT DETECTED (Not Detect.); NG PCR NOT DETECTED (Not Detect.)
== END 2023-02-09 01:24 | disposition home or self-care (01) ==
PROVIDERS: Nurse Practitioner Family; Emergency Provider Emergency Medicine; PCP Nurse Practitioner Family
DX: R30.0 Dysuria (principal); T83.84XA Pain due to genitourinary prosthetic devices, implants and grafts, initial encounter; R10.2 Pelvic and perineal pain; N94.10 Unspecified dyspareunia; Y76.2 Prosthetic and other implants, materials and accessory obstetric and gynecological devices associated with adverse incidents; Y92.9 Unspecified place or not applicable; Z79.899 Other long term (current) drug therapy
CPT/HCPCS: 0353U; 76830; 76856; 81001; 81003; 81025; 87086; 87088; 87186; 99284

== ENCOUNTER 2023-10-23 08:20 | Outpatient (AMB) | payer BC, SELFPAY ==
--- NOTE | 2023-10-23 08:26 | A.OFFPC_ITS ---
Vital Signs 10/23/23 08:27 Height 5 ft 2 in Weight 243 lb BMI 44.4 BP 114/70 Blood Pressure Location Lt brachial Position Sitting Pulse 87 Pulse Source Pulse Oximeter Pulse Oximetry (%) 98 Oxygen Delivery Method Room Air Intake Visit Reasons: Annual PE Intake Note: pt here for annual PE. Pap 07/04/20. Pt states had done at [facility] Allergies amoxicillin Allergy (Unknown, Verified 10/23/23 08:52) hives Medication List - Last Reconciled 10/23/23 by ETELVINA Whiteside albuterol sulfate 90 mcg/actuation 1 puff PO Q4H PRN albuterol sulfate 2.5 mg (3 mL) inhalation Q6H 30 days blood sugar diagnostic (FreeStyle Lite Strips) As directed blood-glucose meter (FreeStyle Lite Meter kit) As directed fluoxetine 40 mg PO DAILY 90 days fluticasone propionate 50 mcg/actuation (Flonase Allergy Relief) 2 sprays intranasal DAILY lancets (FreeStyle Lancets) As directed levocetirizine (Xyzal) 5 mg PO DAILY omeprazole 20 mg PO DAILY PRN peak flow meter As directed Tobacco use date assessed: 10/23/23 Dental Screening Dental Screen Date: 10/23/23 Did you have a dental visit in the last 12 months?: Yes Did you have a dental problem in the last 6 months where you did not have access to dental care?: No Was dental information given to patient?: Patient has dentist HPI HPI Comments History of Present Illness Details Patient is a 28-year-old female who I am meeting for the 1st time in for physical exam. Patient is up-to-date with Tdap. 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 Patient has upcoming appointment for Pap smear will send us notes. She has a past medical history significant for: Intermittent hives-patient has establish care with allergy and immunology. Currently controlled. Reactive airway disease-patient utilizing albuterol 1-2 times per month with good effect. Anxiety and depression-controlled with fluoxetine 40 mg p.o. daily. Gastric reflux-controlled, patient utilizes omeprazole 20 mg daily p.r.n.. Seasonal allergies-utilizes fluticasone nasal spray. [facility] Medical History Elevated LFTs Obesity Cervical cancer screening Salivary stone Asthma Plantar warts HSV-1 infection Surgical History History of removal of cyst Family History Father No problems noted. Mother Mental health disorder Maternal Grandmother Diabetes mellitus Substance use disorder Mental health disorder Maternal Grandfather Cancer Substance use disorder Paternal Grandfather No problems noted. Paternal Grandmother No problems noted. Brother No problems noted. Brother No problems noted. Brother Mental health disorder Sister No problems noted. Sister No problems noted. Sister No problems noted. Sister No problems noted. Social History Household Members: Spouse Housing: House Alcohol intake: never Patient Tobacco Use Status: Never used Tobacco e-Cigarette/Vaping Use: Never Used Second Hand Smoke Exposure: No service: No Current occupational status: employed Current occupation: [employer] Current occupational exposures/hazards: No Cognitive needs: No Hearing needs: No Vision needs: No Female Reproductive History Menstrual Age of Menarche: 13 Questionnaire PHQ-9 Over the last 2 weeks, how often have you been bothered by any of the following problems? 1. Little interest or pleasure in doing things: several days 2. Feeling down, depressed, or hopeless: several days 3. Trouble falling or staying asleep, or sleeping too much: several days 4. Feeling tired or having little energy: several days 5. Poor appetite or overeating: several days 6. Feeling bad about yourself - or that you are a failure or have let yourself or your family down: more than half the days 7. Trouble concentrating on things, such as reading the newspaper or watching television: several days 8. Moving or speaking so slowly that other people could have noticed. Or the opposite - being so fidgety or restless that you have been moving around a lot more than usual: not at all 9. Thoughts that you would be better off or of hurting yourself in some way: not at all Total score: 8 Depression Screening Interpretation: Negative (Utilizing fluoxetine 40 mg p.o. daily.) Depression Screening Done: Yes 48349 - PHQ-9 Billing: Yes Source: Developed by Drs. Rodger Mandujano, Sandra Nice, Jim Peterson and colleagues, with an educational tano from [employer]. Thrive Questionnaire Date Thrive assessed: 10/23/23 I am a: Patient What is your living situation today?: I have a steady place to live Within the past 12 months, did the food you bought not last and you didn't have the money to get more?: Never true Within the past 12 months, did you worry whether your food would run out before you got money to buy more?: Never true Do you have trouble paying for medicines?: No Do you have trouble getting transportation to medical appointments?: No Do you have trouble paying your heating and electricity bill?: No Do you have trouble taking care of your child, family member or friend?: No Do you have trouble with day-to-day activities such as bathing, preparing meals, shopping, managing finances, etc.?: No Are you currently unemployed and looking for a job?: No Are you interested in more education?: No Please select the resources that you would like help with: None Currently or been in a relationship where the following occur: no concerns reported THRIVE Score: 0 AUDIT C Alcohol Use Questionnaire (AUDIT-C) 1. How often do you have a drink containing alcohol?: Never Total Score: 0 TAHIR-7 AMB Questionnaire TAHIR-7 Date TAHIR - 7 assessed: 10/03/22 Feeling nervous, anxious, or on edge: 1 = Several days Not being able to stop or control worryin = Several days Worrying too much about different things: 1 = Several days Trouble relaxin = Not at all Being so restless that it is hard to sit still: 0 = Not at all Becoming easily annoyed or irritable: 1 = Several days Feeling afraid as if something awful might happen: 0 = Not at all Total TAHIR-7 score (0-4 normal; 5-9 mild; 10-14 moderate; 15-21 severe): 4 Source: Developed by Drs. Rodger Mandujano, Jim Perez and colleagues, with an educational tano from [employer]. TAHIR-7 Assessment Billing TAHIR-7 Assessment Tool: TAHIR-7 Assessment 68494 Review of Systems Const All systems reviewed & are unremarkable except as noted in HPI and below Psych Denies homicidal ideation and Denies suicidal ideation Physical exam (Primary Care) Vital Signs: Last Vital Signs Pulse 87 10/23/23 08:27 BP 114/70 10/23/23 08:27 Pulse Ox 98 10/23/23 08:27 Oxygen Delivery Method Room Air 10/23/23 08:27 Care Plan Goal for BP management: Blood pressure is controlled. BMI result Body Mass Index 44.4 BMI Assessment/Plan discussion: High (Would like referral to weight loss clinic) BMI High, discussed plan: lifestyle Tobacco/Smoking Status: Tobacco use Status Tobacco use date assessed 10/23/23 10/23/23 08:37 Patient Tobacco Use Status Never used Tobacco 10/23/23 08:37 e-Cigarette/Vaping Use Never Used 10/23/23 08:37 PHQ-9: PHQ-9 Score PHQ-9: Total score 9 10/23/23 08:37 Depression Screening Interpretation: Negative (Utilizing fluoxetine 40 mg p.o. daily.) Thrive Assessment: Date of Thrive Assessment Date Thrive assessed 10/23/23 10/23/23 08:37 Currently or been in a relationship where the following occur: no concerns reported Const Other: Appearance: Alert.? Oriented X3.? No acute distress.? Head: Normocephalic, atraumatic, no step-offs or deformities Eyes: Pupils equal, round and reactive to light.? ENT: Pharynx normal.?TM intact and pearly mcdaniel. Neck: Normal inspection.? Neck supple.? CVS: Normal heart rate and rhythm.? Pulses normal.? Respiratory: No respiratory distress.? Breath sounds normal.? Abdomen: Soft and nontender.? Skin: Skin warm and dry.? Normal skin color.? Normal skin turgor.? Extremities: No lower extremity edema.? No calf ttp. 5/5 strength to bilateral upper and lower extremities Back: No midline tenderness, no C-spine tenderness, full range of motion, no CVA tenderness bilaterally Neuro: Oriented X 3.? No motor deficit.? No sensory deficit. CN 2-12 intact Assessment and Plan Assessment & Plan (1) Physical exam: Comment: Will draw fasting labs today including CBC, CMP, lipid profile, TSH, UA, vitamin-D, vitamin B6, vitamin B12 Code(s): Z00.00 - Encounter for general adult medical examination without abnormal findings (2) Allergic rhinitis: Comment: Utilizing fluticasone nasal spray with good effect. Code(s): J30.9 - Allergic rhinitis, unspecified Qualifiers: Allergic rhinitis trigger: unspecified Allergic rhinitis seasonality: s easonal Qualified Code(s): J30.2 - Other seasonal allergic rhinitis (3) Asthma: Comment: Utilizing albuterol sulfate inhaler 1-2 times per month. Patient also has establish care with allergy and immunology. Code(s): J45.909 - Unspecified asthma, uncomplicated Qualifiers: Asthma severity: mild Asthma persistence: unspecified Asthma complication type: uncomplicated Qualified Code(s): J45.909 - Unspecified asthma, uncomplicated (4) Obesity: Comment: Patient would like referral to weight loss clinic Code(s): E66.9 - Obesity, unspecified Qualifiers: Obesity type: due to excess calories Obesity classification: unspecified obesity classification Serious obesity comorbidity presence: without serious comorbidity Qualified Code(s): E66.09 - Other obesity due to excess calories (5) Anxiety and depression: Comment: Control with fluoxetine 40 mg p.o. daily. Code(s): F41.9 - Anxiety disorder, unspecified; F32.A - Depression, unspecified Plan: Will draw labs. Orders: Orders Vitamin B6 Today Z13.21 - Encounter for screening for nutritional disorder Vitamin B12 Today Z13.21 - Encounter for screening for nutritional disorder Lipid Panel Today Z13.220 - Encounter for screening for lipoid disorders Complete Blood Count Auto Diff Today Z13.0 - Encounter for screening for diseases of the blood and blood-forming organs and certain disorders involving the immune mechanism Vitamin D 25-OH (D2 and D3) Today Z13.21 - Encounter for screening for nutritional disorder UA CC w/rflx Micro + Cult Today Z13.89 - Encounter for screening for other disorder TSH reflex Free T4 Today Z13.29 - Encounter for screening for other suspected e ndocrine disorder Comprehensive Met. Panel Today Z91.89 - Other specified personal risk factors, not elsewhere classified Referrals Manufacturing Technology Analyst Nutrition Referral E66.09 - Other obesity due to excess calories Coding Level of Care Code Est Pt Prev Care [id number]([id number]) Diagnoses Physical exam Z00.00 Seasonal allergic rhinitis, unspecified trigger J30.2 Allergic rhinitis trigger: unspecified Allergic rhinitis seasonality: seasonal Mild asthma without complication, unspecified whether persistent J45.909 Asthma severity: mild Asthma persistence: unspecified Asthma complication type: uncomplicated Obesity due to excess calories without serious comorbidity, unspecified classification E66.09 Obesity type: due to excess calories Obesity classification: unspecified obesity classification Serious obesity comorbidity presence: without serious comorbidity Anxiety and depression F41.9; F32.A Additional Codes TAHIR-7 Assessment Billing - TAHIR-7 Assessment Tool: TAHIR-7 Assessment 63034 ([id number]) Time Spent (min) 26
[2023-10-23 08:27] VITALS: BP 114/70; PULSE 87; O2SAT 98; BMI 44.4
== END 2023-10-23 09:06 | disposition home or self-care (01) ==
PROVIDERS: Visit Provider Nurse Practitioner Primary Care
DX: Z00.00 Encounter for general adult medical examination without abnormal findings (principal); E66.09 Other obesity due to excess calories; Z68.41 Body mass index [BMI] 40.0-44.9, adult; J30.2 Other seasonal allergic rhinitis; J45.909 Unspecified asthma, uncomplicated; F41.9 Anxiety disorder, unspecified; F32.A Depression, unspecified
CPT/HCPCS: 99395

== ENCOUNTER 2023-10-23 09:07 | Outpatient (REF) | payer BC, SELFPAY ==
[2023-10-23 10:26] LABS: MANUAL DIFF FLAG NO
[2023-10-23 10:40] LABS: Basophils Percent Auto 0.5 % (0-2); Eosinophils Absolute Auto 0.4 X10*3/uL (0.0-0.4); Eosinophils Percent Auto 5.1 % (0-4); Hematocrit 38.6 % (37.0-47.0); Hemoglobin 12.5 g/dl (12.0-16.0); Imm Gran Abs Auto 0.03 X10*3/uL (0.00-0.03); Imm Gran Pct Auto 0.4 % (0.0-0.4); Lymphocytes Absolute Auto 1.6 X10*3/uL (1.2-4.9); Lymphocytes Percent Auto 18.5 % (20-40); Mean Corpuscular HGB Conc 32.4 g/dl (31.0-35.0); Mean Corpuscular Hemoglobin 28.4 pg (27.0-33.0); Mean Corpuscular Volume 87.7 fL (80.0-98.0); Mean Platelet Volume 10.1 fL (9.4-12.3); Monocytes Absolute Auto 0.6 X10*3/uL (0.1-1.2); Monocytes Percent Auto 6.6 % (2-11); Neutrophils Absolute Auto 5.9 x10*3/uL (2.0-8.3); Neutrophils Percent Auto 68.9 % (45-73); Platelet Count 241 X10*3/uL (160-400); Red Cell Distribution Width 13.3 % (11.0-16.0); White Blood Count 8.5 X10*3/uL (4.8-10.8)
[2023-10-23 11:06] LABS: Alanine Aminotransferase 30 U/L (0-31); Albumin Level 3.5 g/dL (3.5-5.0); Alkaline Phosphatase 68 U/L (39-117); Anion Gap 9 (12-20); Aspartate Amino Transferase 17 U/L (5-31); Bilirubin Total 0.3 mg/dL (0.0-1.0); Blood Urea Nitrogen 10 mg/dL (9-16); Calcium 8.9 mg/dL (8.4-10.2); Carbon Dioxide 26 mmol/L (22-29); Chloride 108 mmol/L (96-108); Cholesterol 106 mg/dL (<200); Estimated Glomerular Filt Rate > 60; Glucose Random 105 mg/dL (60-115); HDL Cholesterol 39 mg/dL (>40); LDL Cholesterol Calculated 59 mg/dL (<100); Potassium 4.4 mmol/L (3.3-5.1); Sodium 139 mmol/L (135-145); Total Protein 6.9 g/dL (6.5-8.0); Triglycerides 43 mg/dL (<150)
[2023-10-23 11:21] LABS: Vitamin B12 503 pg/mL (200-900)
[2023-10-23 11:28] LABS: TSH reflex Free T4 1.21 uIU/mL (0.32-4.0)
[2023-10-23 13:50] LABS: Appearance Urine Cloudy; Color Urine Yellow; Glucose Urine UA Negative (Negative); Leukocyte Esterase Urine Moderate (2+) (Negative); Nitrite Urine Negative (Negative); Specific Gravity - Urine 1.025 (1.005-1.025); UMIC TRIGGER UACC YES; Urine Blood Negative (Negative); Urine Ketones Negative (Negative); Urine Protein Trace mg/dL (Neg-Trace)
[2023-10-23 14:08] LABS: Bacteria Urine 4+ (None Seen); Hyaline Casts Urine 0-2 /LPF (0-2); RBC Urine 0-2 /HPF (0-2); UACC Culture Trigger YES
[2023-10-28 15:43] LABS: Vitamin D 25-OH, D2 <4 ng/mL; Vitamin D 25-OH, D3 17 ng/mL; Vitamin D 25-OH, Total 17 ng/mL (30-100)
== END 2023-10-23 09:08 | disposition home or self-care (01) ==
LOC: HO.HMGCLDS 09:07
PROVIDERS: PCP Nurse Practitioner Primary Care; Visit Provider Nurse Practitioner Primary Care
DX: Z13.21 Encounter for screening for nutritional disorder (principal); Z13.220 Encounter for screening for lipoid disorders; Z13.29 Encounter for screening for other suspected endocrine disorder; Z13.0 Encounter for screening for diseases of the blood and blood-forming organs and certain disorders involving the immune mechanism; Z91.89 Other specified personal risk factors, not elsewhere classified
CPT/HCPCS: 36415; 80053; 80061; 81001; 82306; 82607; 84207; 84443; 85025; 87086; 87088; 87186

== ENCOUNTER 2023-11-05 08:16 | Outpatient (AMB) | payer BC, SELFPAY ==
[2023-11-05 08:32] VITALS: BMI 44.0
--- NOTE | 2023-11-05 08:32 | A.OFFVIS_ITS ---
VS Expanded 11/05/23 08:32 11/05/23 08:55 Height 5 ft 2 in 5 ft 2 in Weight 240 lb 11.916 oz 241 lb BMI 44.0 44.1 Intake Visit Reasons: OBESITY/CONFIRMED Allergies amoxicillin Allergy (Unknown, Verified 10/23/23 08:52) hives Nutrition Presentation Details: Pt presents for MNT for obesity. The Pt was referred by PCP, Hany Castillo 3 yrs ago - 222 lbs (then lost 80 lbs working on weight loss, gradually regained ) Has 3 meals a day , time varies, hungriest later int he day B: skips L; pizza/rice/chicken left over, soda D: rice/beans , soda/water 9 pm: pasta food frequency fruits: 1-3 /day vegetables: 2 x/w milk: 2 good yogurt 1-2 /d etoh: denies smoking: denies physical activity: daily life activities BS Monitoring Most Recent Diabetes Results: Cholesterol 106 mg/dL (<200) 10/23/23 HDL Cholesterol 39 mg/dL (>40) L 10/23/23 Triglycerides 43 mg/dL (<150) 10/23/23 Creatinine 0.73 mg/dL (0.5-1.4) 10/23/23 Blood Urea Nitrogen 10 mg/dL (9-16) 10/23/23 Sodium 139 mmol/L (135-145) 10/23/23 Potassium 4.4 mmol/L (3.3-5.1) 10/23/23 Chloride 108 mmol/L (96-108) 10/23/23 Carbon Dioxide 26 mmol/L (22-29) 10/23/23 Calcium 8.9 mg/dL (8.4-10.2) 10/23/23 AST 17 U/L (5-31) 10/23/23 ALT 30 U/L (0-31) 10/23/23 Total Protein 6.9 g/dL (6.5-8.0) 10/23/23 Albumin 3.5 g/dL (3.5-5.0) 10/23/23 ALK-Lolsyyj-Wn.Jeor Equation Height: 5 ft 2 in Weight: 241 lb Resting Metabolic Rate: 1782.47 Calculated Activity Level: Sedentary Calories Needed to Maintain Weight: 2138.96 Diagnosis Nutrition problem #1: food nutri know defi As related to (etiology) #1: diagnosis As evidenced by (sign/symptom) #1: knowledge deficit of diet Monitoring/Goals Nutrition problem monitoring: level of knowledge/skill and weight Nutrition goal/outcome: wt loss 5lbs in 2 months Outcome progress: verbalized understanding [facility] Medical History Elevated LFTs Obesity Cervical cancer screening Salivary stone Asthma Plantar warts HSV-1 infection Surgical History History of removal of cyst Family History Father No problems noted. Mother Mental health disorder Maternal Grandmother Diabetes mellitus Substance use disorder Mental health disorder Maternal Grandfather Cancer Substance use disorder Paternal Grandfather No problems noted. Paternal Grandmother No problems noted. Brother No problems noted. Brother No problems noted. Brother Mental health disorder Sister No problems noted. Sister No problems noted. Sister No problems noted. Sister No problems noted. Social History Household Members: Spouse Housing: House Alcohol intake: never Patient Tobacco Use Status: Never used Tobacco e-Cigarette/Vaping Use: Never Used Second Hand Smoke Exposure: No service: No Current occupational status: employed Current occupation: [employer] Current occupational exposures/hazards: No Cognitive needs: No Hearing needs: No Vision needs: No Female Reproductive History Menstrual Age of Menarche: 13 Assessment & Plan Assessment & Plan (1) Obesity: Code(s): E66.9 - Obesity, unspecified Category: Medical Qualifiers: Obesity type: due to excess calories Obesity classification: unspecified obesity classification Serious obesity comorbidity presence: without serious comorbidity Qualified Code(s): E66.09 - Other obesity due to excess calories Plan: Wt: 109.5 Kg ( 10/2023 ) Est kcal needs as per MSJ: 2100 (40% carb, 30% protein/fat) Est fluid needs as per 25-30 ml/d: 3300 Est prot per day as per 1 g/kg bw: 109 Recommend fiber intake : 8-10 g per day and gradually increase to 25-28 g per day for women and 35-38 g for men or as tolerated Recommend sodium intake per day : less than 2000 mg Educated patient on: ( R = reviewed V = verbalizes understanding N/R = needs review N/A = not applicable * Food sources of carbohydrate, adequate serving sizes and its role in various health conditions: R * Differences between complex carbohydrates a simple carbohydrates, role of f iber in diet: R V N/R * Lean protein sources of foods: R V NR * Differences between types of fats and role in diet (mono on saturated fat fatty acids, saturated fatty acids, trans fats): R V N/R * Food sources of sodium in salt and healthy modifications for heart health in kidney health: R V R/V * Vitamins and minerals: R V N/R * Healthy plate method concept: R * Physical activity: Benefits a precaution: R * Mindful eating strategies: R Patient Instructions: Practice mindful eating Reduce carbs to 60 g at meal, aim at having 3 meals a day following healthy plate method and 0-20 g as snack - limit snacks to 3 a day use exercise machine for relaxation- 10 minutes a day Coding Level of Care Code Nutr Indiv Intake (07894) Diagnoses Obesity due to excess calories without serious comorbidity, unspecified classification E66.09 Obesity type: due to excess calories Obesity classification: unspecified obesity classification Serious obesity comorbidity presence: without serious comorbidity Time Spent (min) 60
[2023-11-11 10:21] VITALS: BMI 44.1
== END 2023-11-05 09:10 | disposition home or self-care (01) ==
PROVIDERS: PCP Nurse Practitioner Primary Care; Visit Provider Dietitian, Registered
DX: E66.09 Other obesity due to excess calories (principal)

== ENCOUNTER → 2023-11-05 08:16 | Outpatient (BNVA) | payer BC, SELFPAY | PROVIDERS: PCP Nurse Practitioner Primary Care; Visit Provider Dietitian, Registered | DX: E66.09 Other obesity due to excess calories (principal); Z68.41 Body mass index [BMI] 40.0-44.9, adult; Z71.3 Dietary counseling and surveillance | CPT/HCPCS: 97802 ==

== ENCOUNTER 2024-09-07 08:31 | Outpatient (AMB) | payer OTHER, SELFPAY ==
[2024-09-07 09:31] VITALS: BP 110/70; PULSE 74; O2SAT 98
--- NOTE | 2024-09-07 09:31 | AM.OFFWIN_ITS ---
Intake Vital Signs 09/07/24 09:31 Weight 248 lb BP 110/70 Blood Pressure Location Rt brachial Position Sitting Pulse 74 Pulse Source Pulse Oximeter Pulse Oximetry (%) 98 Oxygen Delivery Method Room Air Intake Visit Reasons: EP joint pain Intake Note: Patient here for joint pain that has been present for about 2 weeks with no improvement. Patient Tobacco Use Status: Never used Tobacco Allergies amoxicillin Allergy (Unknown, Verified 09/07/24 09:37) hives Do you need a note to return to daycare/school/sports/work: Yes HPI HPI Comments History of Present Illness Details 29 y/o Female Patient who [facility] with c/o Multiple Joints pain (Elbows, Shoulders, Knees, Hips and Ankles) since Last week. Pt reports that she has been having Difficulties Loosing weight, she believes she might have Thyroid disease. Pt also believes she might have an Auto-Immune disorder because she keeps getting Multiple Pneumonias . Denies Upper respiratory symptoms. Denies Fevers, chills, nausea or vomiting. Denies any rashes and denies being in the [place]. Denies injury or trauma to any joints. Denies Diarrhea or Constipation. She does have an appointment with PCP (Mikhail Bertrand) 11/19/24. Patient asking for Lab work today and does not want to wait until the appointment. Advised Patient that I'll message PCP regarding this. Patient was upset that I was not going to be the one ordering Labs today. I explained to the Patient the reasons. [facility] Medical History (Updated 09/07/24 @ 10:13 by Estella Isaac NP) Multiple joint complaints Elevated LFTs Obesity Cervical cancer screening Salivary stone Asthma Plantar warts HSV-1 infection Surgical History History of removal of cyst Family History Father No problems noted. Mother Mental health disorder Maternal Grandmother Diabetes mellitus Substance use disorder Mental health disorder Maternal Grandfather Cancer Substance use disorder Paternal Grandfather No problems noted. Paternal Grandmother No problems noted. Brother No problems noted. Brother No problems noted. Brother Mental health disorder Sister No problems noted. Sister No problems noted. Sister No problems noted. Sister No problems noted. Social History Household Members: Spouse Housing: House Alcohol intake: never Patient Tobacco Use Status: Never used Tobacco e-Cigarette/Vaping Use: Never Used Second Hand Smoke Exposure: No service: No Current occupational status: employed Current occupation: [employer] Current occupational exposures/hazards: No Cognitive needs: No Hearing needs: No Vision needs: No Female Reproductive History Menstrual Age of Menarche: 13 Review of Systems Const All systems reviewed & are unremarkable except as noted in HPI and below Physical Exam Vital Signs: Last Vital Signs Pulse 74 09/07/24 09:31 BP 110/70 09/07/24 09:31 Pulse Ox 98 09/07/24 09:31 Oxygen Delivery Method Room Air 09/07/24 09:31 Const General: no acute distress Nutritional Appearance: obese morbidly obese Orientation/consciousness: patient oriented x3 Resp Effort & Inspection: normal respiratory effort Auscultation: clear to auscultation bilaterally Cardio Heart sounds: S1 normal heart sound present and S2 normal heart sound present Neuro General: patient oriented x3 Psych Speech and movement: Normal speech and movement present Assessment & Plan Assessment & Plan (1) Multiple joint complaints: Code(s): M25.9 - Joint disorder, unspecified Plan: No clear Etiology Advised Patient that I will not be ordering labs today and I will message PCP. Last Seen at The clinic 10/2023. Pt is due for Examination with PCP. (2) Obesity: Code(s): E66.9 - Obesity, unspecified Qualifiers: Obesity type: due to excess calories Obesity classification: unspecified obesity classification Serious obesity comorbidity presence: without serious comorbidity Qualified Code(s): E66.09 - Other obesity due to excess calories Plan: No clear Etiology Advised Patient that I will not be ordering labs today and I will message PCP. Last Seen at The clinic 10/2023. Pt is due for Examination with PCP. Coding Level of Care Code Est Pt Level 4 (59971) Diagnoses Multiple joint complaints M25.9 Obesity due to excess calories without serious comorbidity, unspecified classification E66.09 Obesity type: due to excess calories Obesity classification: unspecified obesity classification Serious obesity comorbidity presence: without serious comorbidity Time Spent (min) 20
== END 2024-09-07 10:13 | disposition home or self-care (01) ==
PROVIDERS: Visit Provider Nurse Practitioner Family
DX: M25.9 Joint disorder, unspecified (principal); E66.09 Other obesity due to excess calories

== ENCOUNTER → 2024-09-07 08:31 | Outpatient (BNVA) | payer OTHER, SELFPAY | PROVIDERS: Visit Provider Nurse Practitioner Family ==

== ENCOUNTER 2024-09-16 07:37 | Outpatient (REF) | payer OTHER, SELFPAY ==
[2024-09-16 10:10] LABS: MANUAL DIFF FLAG NO
[2024-09-16 10:17] LABS: Basophils Absolute Auto 0.1 X10*3/uL (0.0-0.2); Basophils Percent Auto 0.5 % (0-2); Eosinophils Absolute Auto 0.5 X10*3/uL (0.0-0.4); Eosinophils Percent Auto 4.9 % (0-4); Hematocrit 39.4 % (37.0-47.0); Hemoglobin 12.8 g/dl (12.0-16.0); Imm Gran Abs Auto 0.04 X10*3/uL (0.00-0.03); Imm Gran Pct Auto 0.4 % (0.0-0.4); Lymphocytes Absolute Auto 2.3 X10*3/uL (1.2-4.9); Lymphocytes Percent Auto 25.1 % (20-40); Mean Corpuscular HGB Conc 32.5 g/dl (31.0-35.0); Mean Corpuscular Hemoglobin 28.4 pg (27.0-33.0); Mean Corpuscular Volume 87.6 fL (80.0-98.0); Mean Platelet Volume 10.2 fL (9.4-12.3); Monocytes Absolute Auto 0.7 X10*3/uL (0.1-1.2); Monocytes Percent Auto 7.3 % (2-11); Neutrophils Absolute Auto 5.7 x10*3/uL (2.0-8.3); Neutrophils Percent Auto 61.8 % (45-73); Platelet Count 286 X10*3/uL (160-400); Red Cell Distribution Width 12.8 % (11.0-16.0); White Blood Count 9.2 X10*3/uL (4.8-10.8)
[2024-09-16 10:41] LABS: Alanine Aminotransferase 43 U/L (0-31); Albumin Level 3.6 g/dL (3.5-5.0); Alkaline Phosphatase 65 U/L (39-117); Anion Gap 8 (12-20); Aspartate Amino Transferase 30 U/L (5-31); Bilirubin Total 0.4 mg/dL (0.0-1.0); Blood Urea Nitrogen 11 mg/dL (9-16); C Reactive Protein 1.99 mg/dL (< or = 0.50); Calcium 8.6 mg/dL (8.4-10.2); Carbon Dioxide 25 mmol/L (22-29); Chloride 108 mmol/L (96-108); Estimated Glomerular Filt Rate > 60; Glucose Random 104 mg/dL (60-115); Potassium 4.4 mmol/L (3.3-5.1); Sodium 137 mmol/L (135-145); Total Protein 7.3 g/dL (6.5-8.0)
[2024-09-16 10:58] LABS: TSH reflex Free T4 1.63 uIU/mL (0.32-4.0)
[2024-09-16 11:12] LABS: Erythrocyte Sedimentation Rate 27 MM/HR (0-20)
[2024-09-17 11:08] LABS: Lyme Abs Screen <0.90 index
[2024-09-17 11:44] LABS: Anti Nuclear Antibody Screen NEGATIVE (NEGATIVE)
[2024-09-18 06:19] LABS: A. Phagocytphilium DNA,RT-PCR NOT DETECTED (NOT DETECTED); Babesia Microti DNA, RT-PCR NOT DETECTED (NOT DETECTED); Borrelia Miyamotoi,DNA RT-PCR NOT DETECTED (NOT DETECTED); E.Chaffeensis DNA RT-PCR NOT DETECTED (NOT DETECTED); Lyme(Borrelia ssp)DNA RT-PCR NOT DETECTED (NOT DETECTED)
== END 2024-09-16 07:38 | disposition home or self-care (01) ==
LOC: HO.HMGCLDS 07:37
PROVIDERS: PCP Nurse Practitioner Family; Visit Provider Nurse Practitioner Family
DX: M25.9 Joint disorder, unspecified (principal)
CPT/HCPCS: 36415; 80053; 82550; 84443; 85025; 85652; 86038; 86140; 86617; 86618; 87468; 87469; 87478; 87484; 87798

== ENCOUNTER 2024-09-24 07:08 | Outpatient (AMB) | payer OTHER, SELFPAY ==
--- NOTE | 2024-09-24 07:26 | MHC.PC.OV ---
Intake Visit Reasons: walk in follow with labs Allergies amoxicillin Allergy (Unknown, Verified 09/24/24 07:27) hives Medication List - Last Reconciled 09/24/24 by ETELVINA Sauceda- albuterol sulfate 90 mcg/actuation 1 puff PO Q4H PRN albuterol sulfate 2.5 mg (3 mL) inhalation Q6H 30 days blood sugar diagnostic (FreeStyle Lite Strips) As directed blood-glucose meter (FreeStyle Lite Meter kit) As directed fluoxetine 40 mg PO DAILY 90 days fluticasone propionate 50 mcg/actuation (Flonase Allergy Relief) 2 sprays intranasal DAILY lancets (FreeStyle Lancets) As directed levocetirizine (Xyzal) 5 mg PO DAILY omeprazole 20 mg PO DAILY PRN peak flow meter As directed Tobacco use date assessed: 10/23/23 Dental Screening Dental Screen Date: 10/23/23 HPI walk in follow with labs HPI Details History of Present Illness The patient is a 29-year-old female presenting with joint pain. She notes discomfort primarily in the elbows, shoulders, knees, hips, and ankles. Previously evaluated on September 07, 2024, tests identified elevated sedimentation rate and C-reactive protein levels. Her antinuclear antibody test and Lyme disease test were negative. She now experiences some improvement though reports swelling in the knees and ankles without redness. She denies any fever, chills, and other systemic symptoms, expressing that her condition has shown progress since her last visit. Review of Systems - Musculoskeletal: Reports swelling in knees and ankles; Denies redness - Constitutional: Denies fevers, chills - Neurological: Denies blurred vision, dizziness - Gastrointestinal: Denies nausea, vomiting Plan I plan to repeat the sedimentation rate and C-reactive protein tests to examine inflammatory changes. X-rays of the knees and ankles will also be arranged to detect any structural abnormalities related to the joint swelling. The past negative JOSE and Lyme tests provide reassurance against autoimmune or Lyme disease involvement in her current symptoms; thus, they will not be repeated unless new symptoms indicate their necessity. Discussion Notes During the telehealth consultation, I discussed the rationale for repeating the inflammatory markers and obtaining imaging studies to further assess the patient's joint complaints. I explained that these steps could help identify the cause of her symptoms and guide subsequent management. I advised her on the importance of monitoring her symptoms for any changes and the potential value of identifying any trends of improvement or worsening. We discussed following up to review the results of the repeated tests and plan next steps based on those findings. Consent for this plan was obtained, and I reassured her of the intentions of close monitoring to ensure timely response should her condition evolve. Patient Instructions - Monitor joint symptoms and swelling. - Attend scheduled lab tests and imaging to assess current condition. - Follow up for results and discuss any new symptoms or changes in current symptoms. - Seek care if symptoms worsen significantly or new concerning symptoms develop. [facility] Medical History Multiple joint complaints Elevated LFTs Obesity Cervical cancer screening Salivary stone Asthma Plantar warts HSV-1 infection Surgical History History of removal of cyst Family History Father No problems noted. Mother Mental health disorder Maternal Grandmother Diabetes mellitus Substance use disorder Mental health disorder Maternal Grandfather Cancer Substance use disorder Paternal Grandfather No problems noted. Paternal Grandmother No problems noted. Brother No problems noted. Brother No problems noted. Brother Mental health disorder Sister No problems noted. Sister No problems noted. Sister No problems noted. Sister No problems noted. Social History Household Members: Spouse Housing: House Alcohol intake: never Patient Tobacco Use Status: Never used Tobacco e-Cigarette/Vaping Use: Never Used Second Hand Smoke Exposure: No service: No Current occupational status: employed Current occupation: [employer] Current occupational exposures/hazards: No Cognitive needs: No Hearing needs: No Vision needs: No Female Reproductive History Menstrual Age of Menarche: 13 Questionnaire Thrive Questionnaire Date Thrive assessed: 10/23/23 TAHIR-7 AMB Questionnaire TAHIR-7 Date TAHIR - 7 assessed: 10/03/22 Source: Developed by Drs. Rodger Mandujano, Sandra Nice, Jim Peterson and colleagues, with an educational tano from [employer]. Physical exam (Primary Care) Tobacco/Smoking Status: Tobacco use Status Tobacco use date assessed 10/23/23 09/07/24 08:26 Patient Tobacco Use Status Never used Tobacco 09/07/24 09:31 e-Cigarette/Vaping Use Never Used 09/07/24 08:26 Thrive Assessment: Date of Thrive Assessment Date Thrive assessed 10/23/23 09/07/24 08:26 Telehealth Telehealth Telehealth [facility]: [facility] Location of provider rendering services: practice address Location of patient: address on file Patient Identification confirmed using: Name, : Yes Telehealth method: video Patient verbally consented to treatment: Yes Patient verbally consented to billing insurance company: Yes Patient informed of any privacy concerns related to visit: Yes Minutes spent on Phone/Video with Pt.: 15 Coding Level of Care Code Tele Est Pt Level 3 (46576) Diagnoses Swelling of both ankles M25.471; M25.472 Knee swelling M25.469 Multiple joint complaints M25.9 Assessment & Plan Assessment & Plan (1) Swelling of both ankles: Code(s): M25.471 - Effusion, right ankle; M25.472 - Effusion, left ankle Category: Medical (2) Knee swelling: Code(s): M25.469 - Effusion, unspecified knee Category: Medical (3) Multiple joint complaints: Code(s): M25.9 - Joint disorder, unspecified Category: Medical Plan . Orders: Orders C Reactive Protein Today M25.9 - Joint disorder, unspecified Tick-borne Disease Molecular Today M25.9 - Joint disorder, unspecified Uric Acid Today M25.9 - Joint disorder, unspecified XR Knee Keenan 1or 2V Today M25.469 - Effusion, unspecified knee, M25.9 - Joint disorder, unspecified Sjogren's Antibodies Today M25.9 - Joint disorder, unspecified Complete Blood Count Auto Diff Today M25.9 - Joint disorder, unspecified Erythrocyte Sedimentation Rate Today M25.9 - Joint disorder, unspecified Rheumatoid Factor Today M25.9 - Joint disorder, unspecified Cyclic Citrullinated Peptide Today M25.9 - Joint disorder, unspecified XR Ankle Keenan min 3V Today M25.471 - Effusion, right ankle, M25.472 - Effusion, left ankle, M25.9 - Joint disorder, unspecified Protein Electrophoresis, Serum Today M25.9 - Joint disorder, unspecified
== END 2024-09-24 08:10 | disposition home or self-care (01) ==
LOC: HO.HMCC 07:08
PROVIDERS: Visit Provider Nurse Practitioner Family
DX: M25.471 Effusion, right ankle (principal); M25.472 Effusion, left ankle; M25.461 Effusion, right knee; M25.562 Pain in left knee; M25.9 Joint disorder, unspecified

== ENCOUNTER → 2024-09-24 07:08 | Outpatient (BNVA) | payer OTHER, SELFPAY | PROVIDERS: Visit Provider Nurse Practitioner Family | DX: Z13.89 Encounter for screening for other disorder (principal) ==

== ENCOUNTER 2024-09-25 07:14 | Outpatient (REF) | payer OTHER, SELFPAY ==
--- NOTE | ~2024-09-25 | XR_ITS ---
CLINICAL HISTORY: M25.9 - Joint disorder, unspecified 2 view bilateral knee Comparison: None Findings: No acute fracture or dislocation is identified. 1.1 cm well-defined ossification is seen adjacent to the left anterior tibial tuberosity with mild thickening of the patellar tendon attachment. Small left knee joint effusion is noted. IMPRESSION: 1. No acute osseous abnormality is identified in bilateral knees. 2. 1.1 cm well-defined ossification adjacent to the left anterior tibial tuberosity with mild thickening of the patellar tendon attachment suspicious for Malik-Schlatter's disease. 3. Small left knee joint effusion. This document has been electronically signed by: Jon Bradley on 09/25/2024 08:03:07
--- NOTE | ~2024-09-25 | XR_ITS ---
CLINICAL HISTORY: M25.9 - Joint disorder, unspecified 3 view bilateral ankle Comparison: None Findings: Subcutaneous edema is seen about bilateral ankles. No acute fracture or dislocation is identified. IMPRESSION: Subcutaneous edema about bilateral ankles. No acute osseous abnormality is identified. This document has been electronically signed by: Jon Bradley on 09/25/2024 08:03:30
[2024-09-25 07:43] LABS: MANUAL DIFF FLAG NO
[2024-09-25 08:52] LABS: Basophils Percent Auto 0.4 % (0-2); Eosinophils Absolute Auto 0.4 X10*3/uL (0.0-0.4); Eosinophils Percent Auto 3.9 % (0-4); Hematocrit 36.8 % (37.0-47.0); Hemoglobin 12.5 g/dl (12.0-16.0); Imm Gran Abs Auto 0.03 X10*3/uL (0.00-0.03); Imm Gran Pct Auto 0.3 % (0.0-0.4); Lymphocytes Absolute Auto 2.5 X10*3/uL (1.2-4.9); Lymphocytes Percent Auto 24.3 % (20-40); Mean Corpuscular Hemoglobin 28.9 pg (27.0-33.0); Mean Corpuscular Volume 85.2 fL (80.0-98.0); Mean Platelet Volume 10.2 fL (9.4-12.3); Monocytes Absolute Auto 0.6 X10*3/uL (0.1-1.2); Monocytes Percent Auto 5.4 % (2-11); Neutrophils Absolute Auto 6.7 x10*3/uL (2.0-8.3); Neutrophils Percent Auto 65.7 % (45-73); Platelet Count 284 X10*3/uL (160-400); Red Blood Count 4.32 X10*6/uL (4.20-5.50); Red Cell Distribution Width 12.6 % (11.0-16.0); White Blood Count 10.2 X10*3/uL (4.8-10.8)
[2024-09-25 09:37] LABS: Erythrocyte Sedimentation Rate 38 MM/HR (0-20)
[2024-09-25 10:34] LABS: Rheumatoid Factor < 13.0 IU/mL (<15.0)
[2024-09-25 10:35] LABS: C Reactive Protein 2.91 mg/dL (< or = 0.50); Uric Acid 5.1 mg/dL (2.4-5.7)
[2024-09-26 14:43] LABS: A. Phagocytphilium DNA,RT-PCR NOT DETECTED (NOT DETECTED); Babesia Microti DNA, RT-PCR NOT DETECTED (NOT DETECTED); Borrelia Miyamotoi,DNA RT-PCR NOT DETECTED (NOT DETECTED); E.Chaffeensis DNA RT-PCR NOT DETECTED (NOT DETECTED); Lyme(Borrelia ssp)DNA RT-PCR NOT DETECTED (NOT DETECTED)
[2024-09-28 21:57] LABS: Cyclic Citrullinated Peptide <16 UNITS
[2024-09-28 22:28] LABS: Antibody to SS-A Antigen <1.0 NEG AI (<1.0 NEG); Antibody to SS-B Antigen <1.0 NEG AI (<1.0 NEG)
[2024-09-28 22:38] LABS: Prot Elec - Albumin 3.3 g/dL (3.8-4.8); Prot Elec - Alpha1 0.3 g/dL (0.2-0.3); Prot Elec - Alpha2 0.9 g/dL (0.5-0.9); Prot Elec - Beta 1 0.4 g/dL (0.4-0.6); Prot Elec - Beta 2 0.3 g/dL (0.2-0.5); Prot Elec - Total Protein 7.1 g/dL (6.1-8.1)
== END 2024-09-25 07:15 | disposition home or self-care (01) ==
LOC: HO.XRAY 07:14
PROVIDERS: PCP Nurse Practitioner Family; Visit Provider Nurse Practitioner Family
DX: M25.9 Joint disorder, unspecified (principal); M25.471 Effusion, right ankle; M25.472 Effusion, left ankle; M25.469 Effusion, unspecified knee; R93.6 Abnormal findings on diagnostic imaging of limbs
CPT/HCPCS: 36415; 73560; 73610; 84165; 84550; 85025; 85652; 86140; 86200; 86235; 86431; 87468; 87469; 87478; 87484; 87798

== ENCOUNTER → 2024-09-25 07:18 | Outpatient (BNV) | payer OTHER, SELFPAY | PROVIDERS: PCP Nurse Practitioner Family; Visit Provider Radiology Vascular & Interventional Radiology | DX: R22.43 Localized swelling, mass and lump, lower limb, bilateral (principal); M92.522 Juvenile osteochondrosis of tibia tubercle, left leg | CPT/HCPCS: 73560; 73610 ==

== ENCOUNTER 2024-10-09 06:24 | Outpatient (REF) | payer OTHER, SELFPAY ==
[2024-10-09 10:41] LABS: C Reactive Protein 1.83 mg/dL (< or = 0.50)
[2024-10-09 11:11] LABS: Erythrocyte Sedimentation Rate 30 MM/HR (0-20)
[2024-10-12 13:14] LABS: Complement C3 161 mg/dL (83-193)
[2024-10-13 09:13] LABS: IgA <5 mg/dL (47-310); IgG 2348 mg/dL (600-1640); IgM 85 mg/dL (50-300)
== END 2024-10-09 06:25 | disposition home or self-care (01) ==
LOC: HO.HMGCLDS 06:24
PROVIDERS: PCP Nurse Practitioner Family; Visit Provider Nurse Practitioner Family
DX: M25.9 Joint disorder, unspecified (principal)
CPT/HCPCS: 36415; 82784; 85652; 86140; 86160; 86334

== ENCOUNTER 2024-11-03 13:57 | Outpatient (REF) | payer OTHER, SELFPAY ==
[2024-11-03 15:33] LABS: MANUAL DIFF FLAG NO
[2024-11-03 16:53] LABS: Basophils Percent Auto 0.3 % (0-2); Eosinophils Absolute Auto 0.4 X10*3/uL (0.0-0.4); Eosinophils Percent Auto 3.4 % (0-4); Hematocrit 38.4 % (37.0-47.0); Hemoglobin 12.5 g/dl (12.0-16.0); Imm Gran Abs Auto 0.03 X10*3/uL (0.00-0.03); Imm Gran Pct Auto 0.2 % (0.0-0.4); Lymphocytes Absolute Auto 2.8 X10*3/uL (1.2-4.9); Mean Corpuscular HGB Conc 32.6 g/dl (31.0-35.0); Mean Corpuscular Hemoglobin 28.8 pg (27.0-33.0); Mean Corpuscular Volume 88.5 fL (80.0-98.0); Mean Platelet Volume 10.3 fL (9.4-12.3); Monocytes Absolute Auto 0.8 X10*3/uL (0.1-1.2); Monocytes Percent Auto 6.9 % (2-11); Neutrophils Percent Auto 66.2 % (45-73); Platelet Count 264 X10*3/uL (160-400); Red Blood Count 4.34 X10*6/uL (4.20-5.50); Red Cell Distribution Width 12.9 % (11.0-16.0); White Blood Count 12.1 X10*3/uL (4.8-10.8)
[2024-11-03 17:26] LABS: Alanine Aminotransferase 34 U/L (0-31); Albumin Level 3.9 g/dL (3.5-5.0); Alkaline Phosphatase 72 U/L (39-117); Anion Gap 10 (12-20); Aspartate Amino Transferase 23 U/L (5-31); Bilirubin Total 0.3 mg/dL (0.0-1.0); Blood Urea Nitrogen 12 mg/dL (9-16); C Reactive Protein 2.79 mg/dL (< or = 0.50); Calcium 9.1 mg/dL (8.4-10.2); Carbon Dioxide 26 mmol/L (22-29); Chloride 106 mmol/L (96-108); Estimated Glomerular Filt Rate > 60; Glucose Random 74 mg/dL (60-115); Potassium 4.1 mmol/L (3.3-5.1); Sodium 138 mmol/L (135-145); Total Protein 7.6 g/dL (6.5-8.0)
[2024-11-03 17:39] LABS: Ferritin 94 ng/mL (10-122); Vitamin D 25-OH Total 18.8 ng/mL (>30)
[2024-11-03 17:55] LABS: Erythrocyte Sedimentation Rate 34 MM/HR (0-20)
== END 2024-11-03 13:58 | disposition home or self-care (01) ==
LOC: HO.LAB 13:57
PROVIDERS: PCP Nurse Practitioner Family; Visit Provider Nurse Practitioner Family
DX: M25.9 Joint disorder, unspecified (principal)
CPT/HCPCS: 36415; 80053; 82306; 82550; 82728; 85025; 85652; 86140

== ENCOUNTER 2024-11-19 08:22 | Outpatient (AMB) | payer OTHER, SELFPAY ==
[2024-11-19 08:47] VITALS: BP 110/72; PULSE 84; O2SAT 95; BMI 45.0
--- NOTE | 2024-11-19 08:47 | MHC.PC.OV ---
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: No Accompanied by: Self / Same As Patient Allergies amoxicillin Allergy (Unknown, Verified 11/19/24 09:33) hives Medication List - Last Reconciled 11/19/24 by Mikhail Crabtree [facility]- albuterol sulfate 90 mcg/actuation 1 puff PO Q4H PRN albuterol sulfate 2.5 mg (3 mL) inhalation Q6H 30 days budesonide-formoterol 80-4.5 mcg/actuation (Symbicort) 1 puff inhalation BID fluoxetine 40 mg PO DAILY 90 days fluticasone propionate 50 mcg/actuation (Flonase Allergy Relief) 2 sprays intranasal DAILY levocetirizine (Xyzal) 5 mg PO DAILY omeprazole 20 mg PO DAILY PRN peak flow meter As directed tirzepatide (weight loss) (Zepbound) 2.5 mg subcut QWEEK Tobacco use date assessed: 11/19/24 Dental Screening Dental Screen Date: 11/19/24 Did you have a dental visit in the last 12 months?: Yes Did you have a dental problem in the last 6 months where you did not have access to dental care?: No Was dental information given to patient?: Patient has dentist HPI PE HPI Details History of Present Illness The patient is a 29-year-old female presenting for a physical exam. She has a history of asthma with significant wheezing, for which pulmonary function tests and respiratory RESP panel testing are planned. Symbicort has been prescribed, with instructions to rinse her mouth after each use. Pt was using her albuterol averaging 4 times a month The patient experiences joint pain in multiple areas, including knees, hips, ankles, and elbows. She is awaiting a rheumatology consultation, with her inflammatory markers being monitored. She is morbidly obese and has initiated treatment with a GLP-1 agonist, resulting in a 4-pound weight loss, which is anticipated to aid her joint issues. Symptoms of sleep apnea have been noted, and a referral to sleep med has been placed. 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 Denies dyspnea. - Gastrointestinal: Denies constipation, diarrhea, abdominal pain, or hematochezia. - Genitourinary: Denies urinary issues. - Musculoskeletal: Reports joint pain. - Psychiatric: Denies suicidal or homicidal ideation. Physical Exam General: Cooperative, healthy appearing, comfortable, no acute distress and well developed, morbildy obese Orientation: Patient oriented x3 Limitations: No limitations Head: Normal to inspection Ears: Hearing grossly normal bilaterally Nose: Normal external nose present Face and sinus: Normal facial exam Eyes: Appearance normal, both eyes and all related structures Neck: Normal visual inspection and Yes full ROM Respiratory: Wheezing present, history of asthma Cardiovascular: Regular rate and rhythm. Normal S1 and S2 GI: Normal to inspection. Soft to palpation and nontender Skin: No rashes or lesions noted Neuro: Patient oriented x3 Extremities: Joint pains in knees, hips, ankles, and elbows noted. Morbidly obese. Results Plan For asthma, pulmonary function tests and respiratory testing are planned, and Symbicort has been prescribed with mouth rinsing instructions. The patient is awaiting a rheumatology consultation for joint pain, with monitoring of inflammatory markers ongoing. A GLP-1 agonist has been initiated for obesity, resulting in weight loss, which is anticipated to benefit her joint condition. A sleep study is advised to assess for sleep apnea. Discussion Notes I discussed with the patient the addition of Symbicort for asthma management and the importance of rinsing her mouth after use to prevent oral side effects. We talked about the need for a rheumatology consultation to address her joint pain and the monitoring of her inflammatory markers. I emphasized the benefits of weight loss on her joint health and the role of the GLP-1 agonist in achieving this. A sleep study was recommended to evaluate her symptoms suggestive of sleep apnea. Patient Instructions - Use Symbicort as prescribed and rinse your mouth after each use. - Attend the rheumatology appointment as scheduled and report any changes in joint symptoms. - Continue with the GLP-1 agonist and monitor weight loss progress. - Undergo the recommended sleep study to assess for sleep apnea. [facility] Medical History Multiple joint complaints Elevated LFTs Obesity Cervical cancer screening Salivary stone Asthma Plantar warts HSV-1 infection Surgical History History of removal of cyst Family History Father No problems noted. Mother Mental health disorder Maternal Grandmother Diabetes mellitus Substance use disorder Mental health disorder Maternal Grandfather Cancer Substance use disorder Paternal Grandfather No problems noted. Paternal Grandmother No problems noted. Brother No problems noted. Brother No problems noted. Brother Mental health disorder Sister No problems noted. Sister No problems noted. Sister No problems noted. Sister No problems noted. Social History Household Members: Spouse Housing: House Alcohol intake: never Patient Tobacco Use Status: Never used Tobacco e-Cigarette/Vaping Use: Never Used Second Hand Smoke Exposure: No service: No Current occupational status: employed Current occupation: [employer] [[email or web address]] Current occupational exposures/hazards: No Cognitive needs: No Hearing needs: No Vision needs: No Female Reproductive History Menstrual Age of Menarche: 13 Questionnaire PHQ-9 Over the last 2 weeks, how often have you been bothered by any of the following problems? 1. Little interest or pleasure in doing things: several days 2. Feeling down, depressed, or hopeless: several days 3. Trouble falling or staying asleep, or sleeping too much: several days 4. Feeling tired or having little energy: several days 5. Poor appetite or overeating: not at all 6. Feeling bad about yourself - or that you are a failure or have let yourself or your family down: not at all 7. Trouble concentrating on things, such as reading the newspaper or watching television: not at all 8. Moving or speaking so slowly that other people could have noticed. Or the opposite - being so fidgety or restless that you have been moving around a lot more than usual: not at all 9. Thoughts that you would be better off or of hurting yourself in some way: not at all Total score: 4 Depression Screening Interpretation: Negative Depression Screening Done: Yes 38491 - PHQ-9 Billing: Yes Source: Developed by Drs. Rodger Mandujano, Sandra Nice, Jim Peterson and colleagues, with an educational tano from [employer]. Thrive Questionnaire Date Thrive assessed: 11/19/24 I am a: Patient What is your living situation today?: I have a steady place to live Within the past 12 months, did the food you bought not last and you didn't have the money to get more?: Never true Within the past 12 months, did you worry whether your food would run out before you got money to buy more?: Never true Do you have trouble paying for medicines?: No Do you have trouble getting transportation to medical appointments?: No Do you have trouble paying your heating and electricity bill?: No Do you have trouble taking care of your child, family member or friend?: No Do you have trouble with day-to-day activities such as bathing, preparing meals, shopping, managing finances, etc.?: No Are you currently unemployed and looking for a job?: No Are you interested in more education?: No Please select the resources that you would like help with: None Currently or been in a relationship where the following occur: No concerns reported THRIVE Score: 0 AUDIT C Alcohol Use Questionnaire (AUDIT-C) 1. How often do you have a drink containing alcohol?: Never 3. How often do you have six or more drinks on one occasion?: Never Total Score: 0 Score Reviewed/Action Taken: Yes TAHIR-7 AMB Questionnaire TAHIR-7 Date TAHIR - 7 assessed: 11/19/24 Feeling nervous, anxious, or on edge: 1 = Several days Not being able to stop or control worryin = Not at all Worrying too much about different things: 1 = Several days Trouble relaxin = Several days Being so restless that it is hard to sit still: 0 = Not at all Becoming easily annoyed or irritable: 2 = More than half the days Feeling afraid as if something awful might happen: 0 = Not at all Total TAHIR-7 score (0-4 normal; 5-9 mild; 10-14 moderate; 15-21 severe): 5 Source: Developed by Drs. Rodger Mandujano, Sandra Nice, Jim Peterson and colleagues, with an educational tano from [employer] TAHIR-7 Assessment Billing TAHIR-7 Assessment Tool: TAHIR-7 Assessment 71263 Physical exam (Primary Care) Vital Signs: Last Vital Signs Pulse 84 11/19/24 08:47 BP 110/72 11/19/24 08:47 Pulse Ox 95 11/19/24 08:47 Oxygen Delivery Method Room Air 11/19/24 08:47 BMI result Body Mass Index 45.0 Tobacco/Smoking Status: Tobacco use Status Tobacco use date assessed 11/19/24 11/19/24 08:48 Patient Tobacco Use Status Never used Tobacco 11/19/24 08:48 e-Cigarette/Vaping Use Never Used 11/19/24 08:48 PHQ-9: PHQ-9 Score PHQ-9: Total score 4 11/19/24 08:48 Depression Screening Interpretation: Negative Thrive Assessment: Date of Thrive Assessment Date Thrive assessed 11/19/24 11/19/24 08:48 Currently or been in a relationship where the following occur: No concerns reported Coding Level of Care Code Est Pt Level 3 (71808) Est Pt Prev Care 18-39y(64314) Diagnoses Multiple joint complaints M25.9 Elevated C-reactive protein (CRP) R79.82 Elevated sed rate R70.0 Asthma J45.909 Sleep apnea G47.30 Encounter for routine adult physical exam with abnormal findings Z00.01 Additional Codes TAHIR-7 Assessment Billing - TAHIR-7 Assessment Tool: TAHIR-7 Assessment 59649 ([id number]) PHQ-9 - 50259 - PHQ-9 Billing: Yes ([id number]) Assessment & Plan Assessment & Plan (1) Multiple joint complaints: Code(s): M25.9 - Joint disorder, unspecified Category: Medical (2) Elevated C-reactive protein (CRP): Code(s): R79.82 - Elevated C-reactive protein (CRP) Category: Medical (3) Elevated sed rate: Code(s): R70.0 - Elevated erythrocyte sedimentation rate Category: Medical (4) Asthma: Code(s): J45.909 - Unspecified asthma, uncomplicated Category: Medical (5) Asthma: Code(s): J45.909 - Unspecified asthma, uncomplicated Category: Medical (6) Sleep apnea: Code(s): G47.30 - Sleep apnea, unspecified Category: Medical (7) Encounter for routine adult physical exam with abnormal findings: Code(s): Z00.01 - Encounter for general adult medical examination with abnormal findings Category: Medical Plan . Orders: Orders PFT pulmonary function test Today J45.909 - Unspecified asthma, uncomplicated CT chest wo IV con Today J45.909 - Unspecified asthma, uncomplicated, R06.2 - Wheezing Comprehensive [place]. Panel Fast Today R70.0 - Elevated erythrocyte sedimentation rate, R79.82 - Elevated C-reactive protein (CRP), Z00.01 - Encounter for general adult medical examination with abnormal findings UA CC w/rflx Micro + Cult Today R70.0 - Elevated erythrocyte sedimentation rate, R79.82 - Elevated C-reactive protein (CRP) Vitamin D 25-OH Total Today Z00.01 - Encounter for general adult medical examination with abnormal findings C Reactive Protein Today R70.0 - Elevated erythrocyte sedimentation rate, R79.82 - Elevated C-reactive protein (CRP), Z00.01 - Encounter for general adult medical examination with abnormal findings Resp Allergy Profile Region I Today J45.909 - Unspecified asthma, uncomplicated Immunoglobulin E Today J45.909 - Unspecified asthma, uncomplicated Complete Blood Count Auto Diff Today R70.0 - Elevated erythrocyte sedimentation rate, R79.82 - Elevated C-reactive protein (CRP), Z00.01 - Encounter for general adult medical examination with abnormal findings TSH reflex Free T4 Today R70.0 - Elevated erythrocyte sedimentation rate, R79.82 - Elevated C-reactive protein (CRP), Z00.01 - Encounter for general adult medical examination with abnormal findings Lipid Panel Today R70.0 - Elevated erythrocyte sedimentation rate, R79.82 - Elevated C-reactive protein (CRP), Z00.01 - Encounter for general adult medical examination with abnormal findings Erythrocyte Sedimentation Rate Today R70.0 - Elevated erythrocyte sedimentation rate, R79.82 - Elevated C-reactive protein (CRP), Z00.01 - Encounter for general adult medical examination with abnormal findings Referrals Sleep Medicine Referral G47.30 - Sleep apnea, unspecified Rheumatology Referral M25.9 - Joint disorder, unspecified, R70.0 - Elevated erythrocyte sedimentation rate, R79.82 - Elevated C-reactive protein (CRP) Medications: New budesonide-formoterol 80-4.5 mcg/actuation (Symbicort) 1 puff inhalation BID 10.2 grams 0RF
== END 2024-11-19 09:28 | disposition home or self-care (01) ==
LOC: HO.HMCC 08:23
PROVIDERS: PCP Nurse Practitioner Primary Care; Visit Provider Nurse Practitioner Family
DX: Z00.01 Encounter for general adult medical examination with abnormal findings (principal); M25.9 Joint disorder, unspecified; R79.82 Elevated C-reactive protein (CRP); R70.0 Elevated erythrocyte sedimentation rate; J45.909 Unspecified asthma, uncomplicated; G47.30 Sleep apnea, unspecified

== ENCOUNTER 2024-11-19 08:22 | Outpatient (REF) | payer OTHER, SELFPAY ==
[2024-11-19 14:26] LABS: Appearance Urine Clear; Glucose Urine UA Negative (Negative); PH 7.5 (5.0-9.0); Specific Gravity - Urine 1.025 (1.005-1.025); UMIC TRIGGER UACC YES
[2024-11-19 14:26] LABS: MANUAL DIFF FLAG NO
[2024-11-19 14:29] LABS: UACC Culture Trigger YES
[2024-11-19 14:34] LABS: Hematocrit 39.1 % (37.0-47.0); Hemoglobin 13.0 g/dl (12.0-16.0); Imm Gran Abs Auto 0.03 X10*3/uL (0.00-0.03); Imm Gran Pct Auto 0.3 % (0.0-0.4); Lymphocytes Absolute Auto 2.0 X10*3/uL (1.2-4.9); Mean Corpuscular HGB Conc 33.2 g/dl (31.0-35.0); Mean Corpuscular Hemoglobin 28.3 pg (27.0-33.0); Mean Corpuscular Volume 85.0 fL (80.0-98.0); NRBC Abs Auto 0.000 X10*3/uL (0.0-0.012); NRBC Pct Auto 0.0 /100WBC (0.0-0.2); Platelet Count 280 X10*3/uL (160-400); Red Blood Count 4.60 X10*6/uL (4.20-5.50); White Blood Count 9.6 X10*3/uL (4.8-10.8)
[2024-11-19 15:04] LABS: Alanine Aminotransferase 37 U/L (0-31); Albumin Level 3.9 g/dL (3.5-5.0); Alkaline Phosphatase 73 U/L (39-117); Anion Gap 9 (12-20); Aspartate Amino Transferase 38 U/L (5-31); Blood Urea Nitrogen 12 mg/dL (9-16); Calcium 8.6 mg/dL (8.4-10.2); Carbon Dioxide 24 mmol/L (22-29); Chloride 107 mmol/L (96-108); Cholesterol 97 mg/dL (<200); Estimated Glomerular Filt Rate > 60; HDL Cholesterol 36 mg/dL (>40); Potassium 3.8 mmol/L (3.3-5.1); Sodium 136 mmol/L (135-145); Total Protein 7.5 g/dL (6.5-8.0); Triglycerides 45 mg/dL (<150)
[2024-11-23 17:59] LABS: Class Alternaria alternata 0; Class Aspergillus fumigatus 0; Class Bermuda Grass 0; Class Birch 0; Class Cat Dander 3; Class Cladosporium herbarum 0; Class Cockroach 0; Class Common Ragweed 0; Class Cottonwood 0; Class Derm. pterony 2; Class Dermatophagoides farinae 2; Class Dog Dander 2; Class Elm 0; Class Maple Box Elder 0; Class Mountain Cedar 0; Class Mouse Urine Protein 0/1; Class Mugwort 0; Class Oak 0; Class Penicillium crysogenum 0; Class Rough Pigweed 0; Class Sheep Sorrel 0; Class Sycamore 0; Class Timothy Grass 0; Class Walnut Tree 0; Class White Ash 0; Class White Mulberry 0; D002 - IgE D farinae 1.96 kU/L; E001 - IgE Cat Dander 3.95 kU/L; E005 - IgE Dog Dander 1.70 kU/L; G006 - IgE Timothy Grass <0.10 kU/L; I006-IgE Cockroach, German <0.10 kU/L; M002 - IgE Cladosporium herbar <0.10 kU/L; M003 - IgE Aspergillus fumigat <0.10 kU/L; M006 - IgE Alternaria alternat <0.10 kU/L; T001 IgE Maple/Box Elder <0.10 kU/L; T006 - IgE Cedar, Mountain <0.10 kU/L; T007 - IgE Oak, White <0.10 kU/L; T008 IgE Elm, American <0.10 kU/L; T010 - IgE Walnut <0.10 kU/L; T011 - IgE Maple Leaf Sycamore <0.10 kU/L; T014 - IgE Cottonwood <0.10 kU/L; T015 - IgE Ash, White <0.10 kU/L; T070 - IgE White Mulberry <0.10 kU/L; W001 - IgE Ragweed, Short <0.10 kU/L; W006 - IgE Mugwort <0.10 kU/L; W014 IgE Pigweed, Common <0.10 kU/L; W018 IgE Sheep Sorrel <0.10 kU/L
== END 2024-11-19 08:23 | disposition home or self-care (01) ==
LOC: HO.HMGCLDS 08:22
PROVIDERS: PCP Nurse Practitioner Primary Care; Visit Provider Nurse Practitioner Family
DX: Z00.01 Encounter for general adult medical examination with abnormal findings (principal); R79.82 Elevated C-reactive protein (CRP); R70.0 Elevated erythrocyte sedimentation rate; J45.909 Unspecified asthma, uncomplicated; G47.30 Sleep apnea, unspecified; M25.561 Pain in right knee; M25.562 Pain in left knee; M25.551 Pain in right hip; M25.552 Pain in left hip; M25.571 Pain in right ankle and joints of right foot; M25.572 Pain in left ankle and joints of left foot; M25.521 Pain in right elbow; M25.522 Pain in left elbow; Z91.09 Other allergy status, other than to drugs and biological substances; Z13.30 Encounter for screening examination for mental health and behavioral disorders, unspecified; Z13.31 Encounter for screening for depression
CPT/HCPCS: 36415; 80053; 80061; 81001; 82306; 82785; 84443; 85025; 85652; 86003; 86140; 87086; 87088; 87186; 96127

== ENCOUNTER 2024-11-23 16:12 | Outpatient (REF) | payer OTHER, SELFPAY ==
--- NOTE | ~2024-11-23 | XR_ITS ---
EXAMINATION: XR LUMBAR SPINE 2-3 VIEWS CLINICAL INFORMATION: M54.50 - Low back pain, unspecified COMPARISON: None available. TECHNIQUE: Three views of the lumbosacral spine. FINDINGS: Mild levocurvature of the spine. No subluxation. The vertebral body heights and disc spaces are preserved. Sacroiliac joints are intact. XR/XR lumbar spine 2-3V IMPRESSION: No acute findings or degenerative changes. Electronically signed by: Lj Brown MD 11/23/2024 04:38 PM EDT
== END 2024-11-23 16:13 | disposition home or self-care (01) ==
LOC: HO.HMGCX 16:12
PROVIDERS: PCP Nurse Practitioner Family; Visit Provider Nurse Practitioner Family
DX: M54.50 Low back pain, unspecified (principal)
CPT/HCPCS: 72100

== ENCOUNTER → 2024-11-23 16:16 | Outpatient (BNV) | payer OTHER, SELFPAY | PROVIDERS: PCP Nurse Practitioner Family; Visit Provider Radiology Body Imaging | DX: M54.50 Low back pain, unspecified (principal) | CPT/HCPCS: 72100 ==

== ENCOUNTER 2024-11-25 08:24 | Outpatient (AMB) | payer OTHER, SELFPAY ==
--- NOTE | 2024-11-25 11:15 | MHC.OFFVISWM ---
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 Allergies amoxicillin Allergy (Unknown, Verified 11/25/24 11:18) hives Medication List - Last Reconciled 11/25/24 by Carlos Schwartz MD albuterol sulfate 90 mcg/actuation 1 puff PO Q4H PRN albuterol sulfate 2.5 mg (3 mL) inhalation Q6H 30 days budesonide-formoterol 80-4.5 mcg/actuation (Symbicort) 1 puff inhalation BID ciprofloxacin HCl (Cipro) 250 mg PO BID 3 days fluoxetine 40 mg PO DAILY 90 days fluticasone propionate 50 mcg/actuation (Flonase Allergy Relief) 2 sprays intranasal DAILY levocetirizine (Xyzal) 5 mg PO DAILY omeprazole 20 mg PO DAILY PRN peak flow meter As directed tirzepatide (weight loss) (Zepbound) 2.5 mg subcut QWEEK HPI 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[facility] BMI 45.5: Details: Start time: 11.06am, End time: 12.06pm I spent 55 minutes speaking with the patient on the phone plus an additional 5 minutes reviewing and updating records for a total of 60 minutes HPI Comments Details: Previous weight loss efforts: self diets, exercise, Zepbound Wakes up: 7am, Sleeps: 11pm Breakfast: 8am half the week (eggs, sausage with toast) Lunch: 1pm (chicken, rice, beans) Dinner: 9pm (same as lunch Snacks: 10am (nuts), 5pm (popcorn or fruits) Exercise: has home elliptical Beverages: Coffee: 1 cup/d with cream and sugar, Tea: none, Soda: 2/mth, Juice: Crystalight, regular Gatorade, ETOH: none PFSH Medical History (Updated 11/25/24 @ 11:38 by Carlos Schwartz MD) Hx: recurrent pneumonia GERD (gastroesophageal reflux disease) Morbid obesity Multiple joint complaints Elevated LFTs Obesity Cervical cancer screening Salivary stone Asthma Plantar warts HSV-1 infection Surgical History (Updated 11/25/24 @ 11:23 by Carlos Schwartz MD) History of cholecystectomy History of removal of cyst Family History Father No problems noted. Mother Mental health disorder Maternal Grandmother Diabetes mellitus Substance use disorder Mental health disorder Maternal Grandfather Cancer Substance use disorder Paternal Grandfather No problems noted. Paternal Grandmother No problems noted. Brother No problems noted. Brother No problems noted. Brother Mental health disorder Sister No problems noted. Sister No problems noted. Sister No problems noted. Sister No problems noted. Social History Household Members: Spouse Housing: House Alcohol intake: never Patient Tobacco Use Status: Never used Tobacco e-Cigarette/Vaping Use: Never Used Second Hand Smoke Exposure: No service: No Current occupational status: employed Current occupation: [employer] Current occupational exposures/hazards: No Cognitive needs: No Hearing needs: No Vision needs: No Female Reproductive History Menstrual Age of Menarche: 13 Telehealth Telehealth Telehealth Platform: Telephone Location of provider rendering services: practice address Location of patient: address on file Patient Identification confirmed using: Name, : Yes Telehealth method: voice only Patient verbally consented to treatment: Yes Patient verbally consented to billing insurance company: Yes Patient informed of any privacy concerns related to visit: Yes Minutes spent on Phone/Video with Pt.: 60 Assessment & Plan Assessment & Plan (1) Morbid obesity: Code(s): E66.01 - Morbid (severe) obesity due to excess calories Category: Medical Plan: 1. Plan for lap sleeve gastrectomy. If diaphragmatic or ventral hernias are present at time of surgery, these will be repaired laparoscopically as well. I emphasized the importance of close follow-up, adherence to instructions and good communication. The surgery does not replace the need to change your lifestlyle which is the cause of the obesity problem. The surgery provides the motivation to try again to change your lifestyle, it reduces the appetite and make the transition to a better lifestyle easier and doubles the amount of weight you would lose compared to doing the lifestyle change without the surgery. You will need to be on a liquid diet with protein shakes for 2 weeks before surgery to maximize weight loss and boost your nutritional status to recover better from surgery and also for the first two weeks after surgery to let the stomach heal before we introduce other foods. After the first 2 weeks we will introduce protein bars and soft foods like scrambled eggs, cottage cheese and yogurt and after the 6th week will introduce meat, fish and cooked vegetables in small amounts. Over time you should be able to eat everything in small amounts. Side effects like nausea, vomiting, heartburn or abdominal pain are not common in the practice unless you are not following in the practice. This operation requires lifetime commitment to following in our practice and communication with me. You will much less weight and experience side effects if you don?t communicate or not following in the practice. Complications are rare and in our practice is about 1/10 of the national average. However, you can develop bleeding that may require transfusion (hasn?t happened for year in the practice), you may from complications (we did not have any deaths in the practice) and infections. Infections are usually a result of breakdown in communication or not understanding or following directions correctly. They are difficult to treat, they can happen during the first 6 weeks, they may require to be in the hospital for weeks or even months, not being able to eat by mouth and you may have drains and surgeries to try and correct the issue. Other risks and complications include possible conversion to an open procedure, leaks, small bowel obstruction, blood clots, cardiac, or pulmonary complications, as buttermaker helper complications such as ulcers, insufficient weight loss and vitamin deficiencies. 2.Nutritional counseling. Start with one premade 16gr ATKINS protein (buy at [employer], or [employer], or [employer]) shake (MIX 4oz of ATKINS and NOT the whole bottle with 4oz almond milk) at 8am-10am, 1 protein bar (16gr ATKINS protein bars, buy at [employer] or [employer]) at 11am-1pm, another premade 16gr ATKINS protein shake (MIX 4oz of ATKINS and NOT the whole bottle with 4oz low fat unsweetened almond milk) at 2pm-4pm, dinner at 5pm (8 forks of protein and 8 forks of salad/vegetables), another ATKINS protein bar after dinner at 7pm-9pm and if hungry another HALF Atkins protein bar at 10pm-11pm. So you do 2 protein shakes, 2 to 2.5 protein bars and one meal per day. Meal to include lean meat (beef, fish, pork, turkey, chicken), or bhutanese yogurt, or egg whites, or beans with a salad with olive oil and fruits (berries, pears, apples, kiwi). Avoid salt, breads, potatoes, rice, pasta, desserts. 3. Each shake would be drunk slowly, like coffee in a period of 2 hours. 4. Cut each bar in 4 pieces and eat each piece in 30min to make each bar last 2 hours. 5. I emphasized the importance of measuring accurately the food portion and measure it when serving the food in plate 6. The meal portions include 8 full-size forks of meat and 8 full-size forks of salad. You always eat the meat portion but you can replace up to 4 forks for salad/vegetables with rice, potatoes or pasta, or a fruit if you like. The less you do it the better weight loss will be. 7. One full-size fork is what it can be scooped on the fork without falling aside and not what can be bit with the fork. Use regular forks like those you find in a typical restaurant. 8. Please buy the body composition scale we discussed and send me weight measurements as soon as possible and then once a week. Always include your diet and exercise plan. 9. Start Elliptical with an incline of 2.0 and resistance of 4.0. Increase resistance by 1 every 3 min to a max resistance of 10.0, and repeat cycles for 300 calories. Goal is to burn 2000 calories per week on the Elliptical. 10. Please let me know when you have one dose of Zepbound left so I can prescribe the next dose. Common side effects include nausea, vomiting, constipation, diarrhea, abdominal pain. Please let me know if you develop any of these symptoms. 11. It is important of avoiding and for at least 18 months postoperatively and has been discussed at the infosession. 12. Goal is to lose at least 1.5-2lbs per week 13. Goal to lose 10% of your weight before surgery, which is about 25lbs. Ultimate weight goal: 225lbs before surgery 14. Please follow the diet plan exactly without any change. If you don't like something about the plan or you feel hungry you need to communicate with me so I can help you revise the plan. You should not change the plan yourself 15. To be scheduled for EGD to assess the stomach's anatomy. The possibility of biopsies was discussed. Patient needs to avoid use of NSAIDs and aspirin for 1 week prior to EGD. You must be on liquids only the day before your endoscopy. Risks of perforation and bleeding was discussed with the patient. This will be an outpatient procedure with IV sedation. 16. As of tomorrow, please send me a picture of your meal plate after you measure it, but before you consume it. 17. A home sleep study was ordered because the patient reports heavy snoring, observed apneas when sleeping and history of episodes of pneumonia the last calendat year, as well as an Hoopa score of 15. Orders: Orders Zinc Today E66.01 - Morbid (severe) obesity due to excess calories, K21.9 - Gastro-esophageal reflux disease without esophagitis Ferritin Today E66.01 - Morbid (severe) obesity due to excess calories, K21.9 - Gastro-esophageal reflux disease without esophagitis Vitamin D 25-OH Total Today E66.01 - Morbid (severe) obesity due to excess calories, K21.9 - Gastro-esophageal reflux disease without esophagitis US abdomen comp w elastography Today E66.01 - Morbid (severe) obesity due to excess calories, K21.9 - Gastro-esophageal reflux disease without esophagitis XR chest 2V Today E66.01 - Morbid (severe) obesity due to excess calories, K21.9 - Gastro-esophageal reflux disease without esophagitis Insulin Today E66.01 - Morbid (severe) obesity due to excess calories, K21.9 - Gastro-esophageal reflux disease without esophagitis Hemoglobin A1c Today E66.01 - Morbid (severe) obesity due to excess calories, K21.9 - Gastro-esophageal reflux disease without esophagitis H Pylori Breath Test Today E66.01 - Morbid (severe) obesity due to excess calories, K21.9 - Gastro-esophageal reflux disease without esophagitis Complete Blood Count Auto Diff Today E66.01 - Morbid (severe) obesity due to excess calories, K21.9 - Gastro-esophageal reflux disease without esophagitis Lipid Panel Today E66.01 - Morbid (severe) obesity due to excess calories, K21.9 - Gastro-esophageal reflux disease without esophagitis IRON PROFILE Today E66.01 - Morbid (severe) obesity due to excess calories, K21.9 - Gastro-esophageal reflux disease without esophagitis Comprehensive Met. Panel Today E66.01 - Morbid (severe) obesity due to excess calories, K21.9 - Gastro-esophageal reflux disease without esophagitis Vitamin B12 and Folate Today E66.01 - Morbid (severe) obesity due to excess calories, K21.9 - Gastro-esophageal reflux disease without esophagitis C Reactive Protein Today E66.01 - Morbid (severe) obesity due to excess calories, K21.9 - Gastro-esophageal reflux disease without esophagitis Vitamin B1 Today E66.01 - Morbid (severe) obesity due to excess calories, K21.9 - Gastro-esophageal reflux disease without esophagitis Vitamin A Today E66.01 - Morbid (severe) obesity due to excess calories, K21.9 - Gastro-esophageal reflux disease without esophagitis TSH reflex Free T4 Today E66.01 - Morbid (severe) obesity due to excess calories, K21.9 - Gastro-esophageal reflux disease without esophagitis ECG 12 lead EKG Today E66.01 - Morbid (severe) obesity due to excess calories, K21.9 - Gastro-esophageal reflux disease without esophagitis FL upper GI w air Today E66.01 - Morbid (severe) obesity due to excess calories, K21.9 - Gastro-esophageal reflux disease without esophagitis RT home sleep study Today G47.30 - Sleep apnea, unspecified, R06.81 - Apnea, not elsewhere classified, R06.83 - Snoring, Z87.01 - Personal history of pneumonia (recurrent) Referrals Nutrition/Dietitian Referral E66.01 - Morbid (severe) obesity due to excess calories, K21.9 - Gastro-esophageal reflux disease without esophagitis Behavioral Health Referral E66.01 - Morbid (severe) obesity due to excess calories, K21.9 - Gastro-esophageal reflux disease without esophagitis
[2024-11-25 11:31] VITALS: BMI 45.4
== END 2024-11-25 12:08 | disposition home or self-care (01) ==
LOC: HO.HBS 08:24
PROVIDERS: PCP Nurse Practitioner Family; Visit Provider Surgery
DX: E66.01 Morbid (severe) obesity due to excess calories (principal); Z68.42 Body mass index [BMI] 45.0-49.9, adult
CPT/HCPCS: 98011

== ENCOUNTER 2024-11-27 10:33 | Outpatient (REF) | payer OTHER, SELFPAY ==
--- NOTE | ~2024-11-27 | XR_ITS ---
EXAMINATION: XR CHEST CLINICAL INFORMATION: E66.01 - Morbid (severe) obesity due to excess calories COMPARISON: None available. TECHNIQUE: 2 views of the chest were obtained. FINDINGS: The cardiac, hilar, and mediastinal contours are normal. The lungs are clear bilaterally. There is no pneumothorax or pleural effusion. There is no focal osseous or soft tissue abnormality. XR/XR chest 2V IMPRESSION: Normal chest. Electronically signed by: Kunal Villeda MD 11/27/2024 11:21 AM EDT
[2024-11-27 12:57] LABS: MANUAL DIFF FLAG NO
[2024-11-27 13:02] LABS: Hematocrit 40.4 % (37.0-47.0); Hemoglobin 13.2 g/dl (12.0-16.0); Imm Gran Abs Auto 0.03 X10*3/uL (0.00-0.03); Imm Gran Pct Auto 0.4 % (0.0-0.4); Lymphocytes Absolute Auto 1.7 X10*3/uL (1.2-4.9); Mean Corpuscular HGB Conc 32.7 g/dl (31.0-35.0); Mean Corpuscular Hemoglobin 28.5 pg (27.0-33.0); Mean Corpuscular Volume 87.3 fL (80.0-98.0); NRBC Abs Auto 0.000 X10*3/uL (0.0-0.012); NRBC Pct Auto 0.0 /100WBC (0.0-0.2); Platelet Count 270 X10*3/uL (160-400); Red Blood Count 4.63 X10*6/uL (4.20-5.50); White Blood Count 8.5 X10*3/uL (4.8-10.8)
[2024-11-27 13:17] LABS: Hemoglobin A1C 107.9166 umol/L; Total Hemoglobin (HGBA1C) 3348.8356 umol/L
[2024-11-27 13:41] LABS: Albumin Level 4.0 g/dL (3.5-5.0); Alkaline Phosphatase 89 U/L (39-117); Anion Gap 10 (12-20); Aspartate Amino Transferase 32 U/L (5-31); Blood Urea Nitrogen 12 mg/dL (9-16); Calcium 8.9 mg/dL (8.4-10.2); Carbon Dioxide 23 mmol/L (22-29); Chloride 109 mmol/L (96-108); Cholesterol 105 mg/dL (<200); Estimated Glomerular Filt Rate > 60; HDL Cholesterol 35 mg/dL (>40); Iron 76 mcg/dL (30-160); Percent Iron Saturation 39 % (15-50); Potassium 3.9 mmol/L (3.3-5.1); Sodium 138 mmol/L (135-145); Total Iron Binding Capacity 197 mcg/dL (228-428); Total Protein 8.0 g/dL (6.5-8.0); Triglycerides 44 mg/dL (<150); Unsaturated Iron Binding 121 ug/dL
[2024-11-27 13:50] LABS: Ferritin 136 ng/mL (10-122)
[2024-11-27 13:54] LABS: Alanine Aminotransferase 30 U/L (0-31)
[2024-11-27 14:02] LABS: Folate 7.5 ng/mL (> or = 4.0); Vitamin B12 479 pg/mL (200-900)
== END 2024-11-27 10:34 | disposition home or self-care (01) ==
LOC: HO.HMGCX 10:33
PROVIDERS: PCP Nurse Practitioner Family; Visit Provider Surgery
DX: K21.9 Gastro-esophageal reflux disease without esophagitis (principal); E66.01 Morbid (severe) obesity due to excess calories
CPT/HCPCS: 36415; 71046; 80053; 80061; 82306; 82607; 82728; 82746; 83036; 83525; 83540; 84425; 84443; 84590; 84630; 85025; 86140

== ENCOUNTER → 2024-11-27 10:38 | Outpatient (BNV) | payer OTHER, SELFPAY | PROVIDERS: PCP Nurse Practitioner Family; Visit Provider Radiology Diagnostic Radiology | DX: E66.01 Morbid (severe) obesity due to excess calories (principal) | CPT/HCPCS: 71046 ==

== ENCOUNTER → 2024-11-27 11:08 | Outpatient (REF) | payer OTHER, SELFPAY ==
--- NOTE | 2024-11-27 11:12 | ECG_ITS ---
Test Reason : MOR OBS Blood Pressure : */* mmHG Vent. Rate : 80 BPM Atrial Rate : 80 BPM P-R Int : 148 ms QRS Dur : 82 ms QT Int : 360 ms P-R-T Axes : 18 53 44 degrees QTcB Int : 415 ms Normal sinus rhythm Normal ECG No previous ECGs available Referred By: Carlos Schwartz Electronically Signed By: NICKY HAYNES
== END ==
LOC: HO.CARD 11:08
PROVIDERS: PCP Nurse Practitioner Family; Visit Provider Surgery
DX: E66.01 Morbid (severe) obesity due to excess calories (principal); K21.9 Gastro-esophageal reflux disease without esophagitis
CPT/HCPCS: 93005

== ENCOUNTER → 2024-11-27 11:12 | Outpatient (BNV) | payer OTHER, SELFPAY | PROVIDERS: PCP Nurse Practitioner Family; Visit Provider Internal Medicine | DX: E66.01 Morbid (severe) obesity due to excess calories (principal) | CPT/HCPCS: 93010 ==

== ENCOUNTER 2024-12-23 09:16 | Outpatient (REF) | payer OTHER, SELFPAY ==
--- NOTE | ~2024-12-23 | US_ITS ---
EXAMINATION: US ABDOMEN COMPLETE WITH LIVER ELASTOGRAPHY HISTORY: E66.01 - Morbid (severe) obesity due to excess calories TECHNIQUE: Real-time grayscale ultrasound imaging of the abdomen was performed and images were reviewed. COMPARISON: There are no prior studies available for comparison. FINDINGS: Liver: The right lobe of the liver measures 15.6 cm in size. The left lobe of the liver measures 9.1 cm in size. The liver demonstrates increased echotexture, consistent with steatosis. No focal mass or intrahepatic biliary ductal dilatation is identified. There is normal hepatopedal flow in the portal vein. Ultrasound elastography of the liver was performed with 10 separate measurements of the liver parenchyma with the patient in the supine position. Measurements were obtained approximately 2 cm below Kaykay's capsule and perpendicular to the capsule. The median shear wave velocity is 1.68 m/s. The interquartile range/median (IQR/median) is 0.02. Gallbladder and biliary tree: The gallbladder is surgically absent. The common bile duct is normal in caliber measuring 6 mm. Kidneys: The right kidney measures 11.5 cm in length. The left kidney measures 11.4 cm in length. The kidneys are unremarkable, without evidence of masses, hydronephrosis, or calculi. Pancreas: The pancreatic head, neck, and body are unremarkable. The pancreatic tail is obscured by bowel gas. Spleen: The spleen is normal in size and contour, measuring 11.5 cm in length. Abdominal aorta and inferior vena cava: The visualized portions of the abdominal aorta and inferior vena cava are normal in caliber. There is no free fluid in the abdomen. US/US abdomen comp w elastography IMPRESSION: Hepatic steatosis. The median shear wave velocity in the liver is 1.68 m/s, corresponding to a median liver stiffness of 8.61 kPa. The IQR/median value is 0.02. This is indicative of a quality data set. Findings are indicative of a low elastography value which rules out advanced chronic liver disease in asymptomatic patients. REFERENCE: Society of Radiologists in Ultrasound Liver Stiffness Thresholds (2020): LIVER STIFFNESS THRESHOLDS: *Shear wave velocity less than 1.3 m/s (Liver Stiffness equal or less than 5 kPa): High probability of being normal. *Shear wave velocity less than 1.7 m/s (Liver Stiffness less than 9 kPa): In the absence of other known clinical signs, rules out compensated advanced chronic liver disease. *Shear wave velocity between 1.7-2.1 m/s (Liver Stiffness 9-13 kPa): Suggestive of compensated advanced chronic liver disease but need further test for confirmation. *Shear wave velocity between 2.1-2.4 m/s (Liver Stiffness 13-17 kPa): Rules in compensated advanced chronic liver disease. *Shear wave velocity greater than 2.4 m/s (Liver Stiffness over 17 kPa): Suggestive of clinically significant portal hypertension. QUALITY OF DATA SET: *IQR/Median value equal or less than 0.15 implies a quality data set. *IQR/Median value over 0.15 implies a poor quality data set. SIGNIFICANT CHANGE FROM PRIOR EXAM: Significant change if liver stiffness measurement is 10% or greater from prior exam. OTHER CONSIDERATIONS: The stage of liver fibrosis may be overestimated in the setting of acute hepatitis, liver inflammation, elevated liver function tests, hepatic vascular congestion, obstructive cholestasis, non-fasting state, and infiltrative diseases such as amyloidosis and lymphoma. In some patients with NAFLD, the liver stiffness thresholds for compensated advanced chronic liver disease may be lower. In causes other than viral hepatitis and NAFLD, liver stiffness thresholds are not well established. Electronically signed by: Rodger Joy MD 12/23/2024 10:44 AM EDT
== END 2024-12-23 09:17 | disposition home or self-care (01) ==
LOC: HO.US 09:16
PROVIDERS: PCP Nurse Practitioner Family; Visit Provider Surgery
DX: K21.9 Gastro-esophageal reflux disease without esophagitis (principal); E66.01 Morbid (severe) obesity due to excess calories
CPT/HCPCS: 76700; 76981

== ENCOUNTER → 2024-12-23 09:17 | Outpatient (BNV) | payer OTHER, SELFPAY | PROVIDERS: PCP Nurse Practitioner Family; Visit Provider Radiology Diagnostic Radiology | DX: K76.0 Fatty (change of) liver, not elsewhere classified (principal) | CPT/HCPCS: 76700 ==

== ENCOUNTER 2024-12-28 11:12 | Outpatient (AMB) | payer OTHER, SELFPAY ==
--- NOTE | 2024-12-28 11:05 | MHC.WMTHER ---
Intake Intake Visit Reasons: VIDEO Intake Allergies amoxicillin Allergy (Unknown, Verified 11/25/24 11:18) hives [facility] Medical History (Updated 01/07/25 @ 15:28 by Nohelia Jerry [facility]) Hx: recurrent pneumonia GERD (gastroesophageal reflux disease) Morbid obesity Multiple joint complaints Elevated LFTs Obesity Cervical cancer screening Salivary stone Asthma Plantar warts HSV-1 infection Surgical History (Updated 11/25/24 @ 11:23 by Carlos Schwartz MD) History of cholecystectomy History of removal of cyst Family History Father No problems noted. Mother Mental health disorder Maternal Grandmother Diabetes mellitus Substance use disorder Mental health disorder Maternal Grandfather Cancer Substance use disorder Paternal Grandfather No problems noted. Paternal Grandmother No problems noted. Brother No problems noted. Brother No problems noted. Brother Mental health disorder Sister No problems noted. Sister No problems noted. Sister No problems noted. Sister No problems noted. Social History Household Members: Spouse Housing: House Alcohol intake: never Patient Tobacco Use Status: Never used Tobacco e-Cigarette/Vaping Use: Never Used Second Hand Smoke Exposure: No service: No Current occupational status: employed Current occupation: [employer] Current occupational exposures/hazards: No Cognitive needs: No Hearing needs: No Vision needs: No Female Reproductive History Menstrual Age of Menarche: 13 Behavioral Health Assessment Weight Management Therapy Therapy Notes Details PT is a 29 years old female, who presents for initial visit to start assessment as part of surgical weight loss program. Presenting Concerns Referral Source WMP-Provider Reason for referral Completion of behavioral health assessment as part of process for weight-loss surgery. Precipitating Event Obesity. Living Situation Current Living Situation Rent At risk of losing current housing? No Satisfied with current living situation? Yes Comments PT lives with her and her son. Food/Weight/Diet Expectations of change Initial goal to lose 10% of her weight before surgery, which is about 25lbs. Ultimate weight goal: 225lbs before surgery, which she already reached, as PT reported a recent weight of 225 as of 12/26/2024 PT is implementing the following: Current meal plan: 2 protein shakes, 2 to 2.5 protein bars, and one meal per day. Exercise plan: Elliptical 300cal at day, 3-4 days at week. Scale: yes. Communication w/ provider: Saturdays. History/Relationship with food Example of meals before starting the program: Breakfast: Lunch: Dinner: Snacks: Drinks/Liquids: History/Relationship with weight In the last 10 years, the patient's Lowest weight was and highest Social History Family history and relationship PT is and has been for 5 years; they have a 4-year-old son. Both parents alive but . From her mom's side, she has 3 siblings (2 sisters, 1 brother), from father side a mixture of siblings and step-siblings, total of 6 (4 boys and 2 girls), PT is the youngest. PT reports good family relationships. Parental/Familial finance business partner obligations 4-year-old son. Caregiver for her mother. Developmental history and status None. Social support and mother. Community support PCP. Oriental Orthodox/Spirituality Pentecostal, non-spiritism. Cultural/Ethnic information . Mother from [place], father from [place]. Legal Involvement and History Current or historical involvement with the legal system? None reported. Education Highest grade completed Associates degree. Preferred learning style Learn by doing and Visual Currently enrolled in educational program? No Interested in further educational program? Yes Educational Interests/Skills PT would like to become a nurse or be in Healthcare. 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 No Financial Situation Describe current financial situation Comfortable Financial assistance? None Service Service? No Mental Health and Addiction Treatment Psychiatric history PT was in counseling while in , was diagnosed with depression. She started counseling due to mood swings which affected the relationship with parents. At the time she started taking Fluoxetine in a lower dosage, then stopped. Currently, PT is not in counseling but her PCP is prescribing her Fluoxetine 40mg since 2021, after she had her son due to Sx of PPD. PT denies ever being inpatient, in crisis or in need or high-level care for mental health. PT reported SI as a teenager. PT is stable at this time. Medical and Physical Health Summary Additional Medical History not covered in history None reported Sexual History concerns None reported Physical exam in the last year? Yes (November/2024.) Pain Screening Current pain? Yes Pain in the last few months? Yes Comments Back pain, joint pain that started a few months ago. Medications Is the patient compliant with medications? Yes Does the patient have Araiza Guardian in place? Not applicable Does the patient use complimentary health approaches? Yes Trauma/Abuse History History of trauma? Yes Questionnaires PHQ-9 Over the last 2 weeks, how often have you been bothered by any of the following problems? 1. Little interest or pleasure in doing things: more than half the days 2. Feeling down, depressed, or hopeless: several days 3. Trouble falling or staying asleep, or sleeping too much: more than half the days 4. Feeling tired or having little energy: more than half the days 5. Poor appetite or overeating: more than half the days 6. Feeling bad about yourself - or that you are a failure or have let yourself or your family down: more than half the days 7. Trouble concentrating on things, such as reading the newspaper or watching television: several days 8. Moving or speaking so slowly that other people could have noticed. Or the opposite - being so fidgety or restless that you have been moving around a lot more than usual: not at all 9. Thoughts that you would be better off or of hurting yourself in some way: not at all Total score: 12 Depression Screening Interpretation: Positive (From new PT pack -) Depression Screening Done: Yes Source: Developed by Drs. Rodger Mandujano, Sandra Nice, Jim Peterson and colleagues, with an educational tano from [address]. Binge Eating Scale Group 1 A. I don't feel self-conscious about my wt. or body size when I'm with others. B. I feel concerned about how I look to others, but it normally does not make me fell disappointed with myself C. I do get self-conscious about my appearance and wt. which makes me feel disappointed in myself. D. I feel very self-conscious about my wt. and frequently I feel intense shame and disgust for myself. I try to avoid social contacts because of my self-consciousness. Response Group 1: D Group 2 A. I don't have any difficulty eating slowly in the proper manner. B. Although I seem to gobble down foods, I don't end up feeling stuffed because of eating to much. C. At times, I tend to eat quickly and then, I feel uncomfortably full afterwards. D. I have the habit of bolting down my food, without really chewing it. When this happens I usually feel uncomfortably stuffed because I've eaten to much. Response Group 2: D Group 3 A. I feel capable to control my eating urges when I want to. B. I feel like I have failed to control my eating more than the average person. C. I feel utterly helpless when it comes to feeling in control of my eating urges. D. Because I feel so helpless about controlling my eating I have become very desperate about trying to get control. Response Group 3: B Group 4 A. I don't have the habit of eating when I'm bored. B. I sometimes eat when I'm bored, but often I'm able to get busy and get my mind off food. C. I have a regular habit of eating when I'm bored, but occasionally, I can use some other activity to get my mind off eating. D. I have a strong habit of eating when I'm bored. Nothing seems to help me breath the habit. Response Group 4: D Group 5 A. I'm usually physically hungry when I eat something. B. Occasionally, I eat something on impulse even though I really am not hungry. C. I have the regular habit of eating foods, that I might not really enjoy, to satisfy a hungry feeling even though physically, I don't need the food. D. Although I'm not physically hungry, I get a hungry feeling in my mouth that only seems to be satisfied when I eat a food, like sandwich, that fills my mouth. Sometimes, when I eat the food to satisfy my mouth hunger, I then spit the food out so I won't gain weight. Response Group 5: B Group 6 A. I don't feel any guilt or self-hate after I overeat. B. After I overeat, occasionally I feel guilt or self-hate. C. Almost all the time I experience strong guilt or self-hate after I overeat. Response Group 6: C Group 7 A. I don't lose total control of my eating when dieting even after periods when I overeat. B. Sometimes when I eat a forbidden food on a diet, I feel like I blew it and eat even more. C. Frequently, I have the habit of saying to myself, I've blown it now, why not go all the way, when I overeat on a diet. When that happens I eat more. D. I have a regular habit of starting a strict diets for myself but I break the diets by going on an eating binge. My life seems to be either a feast or famine. Response Group 7: D Group 8 A. I rarely eat so much food that I feel uncomfortably stuffed afterwards. B. Usually about once a month, I each such a quantity of food, I end up feeling very stuffed. C. I have regular periods during the month when I eat large amounts of food, either at mealtime or at snacks. D. I eat so much food that I regularly feel quite uncomfortable after eating and sometimes a bit nauseous. Response Group 8: C Group 9 A. My level of calorie intake does not go up very high or go down very low on a regular basis. B. Sometimes after I overeat, I will try to reduce my caloric intake to almost nothing to compensate for the excess calories I've eaten. C. I have a regular habit of overeating during the night. It seems that my routine is not to be hungry in the morning but overeat in the evening. D. In my adult years, I have had week-long periods where I practically starve myself. This follows periods when I overeat. It seems I live a life of either feast or famine. Response Group 9: B Group 10 A. I usually am able to stop eating when I want to. I know when enough is enough. B. Every so often, I experience a compulsion to eat which I can't seem to control. C. Frequently, I experience strong urges to eat which I seem unable to control, but at other times I can control my eating urges. D. I feel incapable of controlling urges to eat. I have a fear of not being able to stop eating voluntarily. Response Group 10: B Group 11 A. I don't have any problem stopping eating when I feel full. B. I usually can stop eating when I feel full but occasionally overeat leaving me feeling uncomfortably stuffed. C. I have a problem stopping eating once I start and usually I feel uncomfortably stuffed after I eat a meal. D. Because I have a problem not being able to stop eating when I want, I sometimes have to induce vomiting to relieve my stuffed feeling. Response Group 11: B Group 12 A. I seem to eat just as much when I'm with others, Family social gatherings as when I'm by myself. B. Sometimes, when I'm with other persons, I don't eat as much as I want to eat because I'm self-conscious about my eating. C. Frequently, I eat only a small amount of food when others are present, because I'm very embarrassed about my eating. D. I feel so ashamed about overeating that I pick times to overeat when I know no one will see me. I feel like a closet eater. Response Group 12: B Group 13 A. I eat three meals a day with only an occasional between meal snack. B. I eat 3 meals a day, but I also normally snack between meals. C. When I am snacking heavily, I get in the habit of skipping regular meals. D. There are regular periods when I seem to be continually eating, with no planned meals. Response Group 13: B Group 14 A. I don't think much about trying to control unwanted eating urges. B. At least some of the time, I feel my thoughts are pre-occupied with trying to control my eating urges. C. I feel that frequently I spend much time thinking about how much I ate or about trying not to eat anymore. D. It seems to me that most of my waking hours are pre-occupied by thoughts about eating or not eating. I feel like I'm constantly struggling not to eat. Response Group 14: D Group 15 A. I don't think about food a great deal. B. I have strong craving for food but they last only for brief periods of time. C. I have days when I can't seem to think about anything else but food. D. Most of my days seem to be pre-occupied with thoughts about food. I feel like I live to eat. Response Group 15: B Group 16 A. I usually know whether or not I'm physically hungry. I take the right portion of food to satisfy me. B. Occasionally, I feel uncertain about knowing whether or not I'm physically hungry. A these times it's hard to know how much food I should take to satisfy me. C. Even though I might know how many calories I should eat, I don't have any idea what is a normal amount of food for me. Response Group 16: B Binge Eating Score: 28 Score less than 17 Minimal Risk Score between 18-26 Moderate Risk Score between 27-46 High Risk Assessment & Plan Assessment & Plan (1) Adjustment disorder with mixed anxiety and depressed mood: Code(s): F43.23 - Adjustment disorder with mixed anxiety and depressed mood (2) Pre-bariatric surgery psychological evaluation: Code(s): Z71.89 - Other specified counseling Plan The patient was not cleared today as the assessment was not completed. So far she appears to be a great candidate to move forward with SW program, however she will return to complete the Food/weight/Diet Hx and assessment and a new PHQ-9 will be administered. Next appointment: 01/07/2025 at 12, video for intake part 2. Telehealth Telehealth Telehealth Platform: [facility] Location of provider rendering services: other (Home office. [place], [place]) Location of patient: address on file Patient Identification confirmed using: Name, : Yes Telehealth method: video Patient verbally consented to treatment: Yes Patient verbally consented to billing insurance company: Yes Patient informed of any privacy concerns related to visit: Yes Minutes spent on Phone/Video with Pt.: 55 Coding Level of Care Code New Pt Tele Psy Diag Annel ([id number]) Patient Type New Diagnoses Adjustment disorder with mixed anxiety and depressed mood F43.23 Pre-bariatric surgery psychological evaluation Z71.89 Time Spent (min) 55
== END 2024-12-28 13:10 | disposition home or self-care (01) ==
LOC: HO.HBST 11:12
PROVIDERS: PCP Nurse Practitioner Family; Visit Provider Counselor Mental Health
DX: F43.23 Adjustment disorder with mixed anxiety and depressed mood (principal); Z71.89 Other specified counseling
CPT/HCPCS: 90791

== ENCOUNTER 2025-01-02 07:03 | Outpatient (REF) | payer OTHER, SELFPAY ==
--- NOTE | ~2025-01-02 | CT_ITS ---
CLINICAL HISTORY: R06.2 - Wheezing CT CHEST WITHOUT CONTRAST Comparison: CR/SR - XR CHEST 2 VIEWS - 11/27/24 10:59 EDT Findings: Unenhanced heart, visualized pericardium and thoracic aorta appear unremarkable. Increased attenuation in the anterior mediastinum/prevascular space is most likely residual thymus. No thyromegaly or mediastinal lymphadenopathy. No significant bronchial wall thickening or acute airspace opacity. No pulmonary mass or suspicious pulmonary nodule. No pleural effusion or pneumothorax. Cholecystectomy. The bones are intact. IMPRESSION: 1. Unremarkable chest CT. This document has been electronically signed by: Janelle Hines DO on 01/04/2025 15:07:39
== END 2025-01-02 07:04 | disposition home or self-care (01) ==
LOC: HO.CT 07:03
PROVIDERS: PCP Nurse Practitioner Family; Visit Provider Nurse Practitioner Family
DX: J45.909 Unspecified asthma, uncomplicated (principal); F43.23 Adjustment disorder with mixed anxiety and depressed mood; Z71.89 Other specified counseling
CPT/HCPCS: 71250

== ENCOUNTER → 2025-01-02 07:05 | Outpatient (BNV) | payer OTHER, SELFPAY | PROVIDERS: PCP Nurse Practitioner Family; Visit Provider Radiology Diagnostic Radiology | DX: R06.2 Wheezing (principal) | CPT/HCPCS: 71250 ==

== ENCOUNTER 2025-01-07 12:27 | Outpatient (AMB) | payer OTHER, SELFPAY ==
--- NOTE | 2025-01-07 12:20 | MHC.WMTHER ---
Intake Intake Visit Reasons: VIDEO Intake Part 2 Allergies amoxicillin Allergy (Unknown, Verified 11/25/24 11:18) hives [facility] Medical History (Updated 01/07/25 @ 15:28 by Nohelia Jerry [facility]) Hx: recurrent pneumonia GERD (gastroesophageal reflux disease) Morbid obesity Multiple joint complaints Elevated LFTs Obesity Cervical cancer screening Salivary stone Asthma Plantar warts HSV-1 infection Surgical History (Updated 11/25/24 @ 11:23 by Carlos Schwartz MD) History of cholecystectomy History of removal of cyst Family History Father No problems noted. Mother Mental health disorder Maternal Grandmother Diabetes mellitus Substance use disorder Mental health disorder Maternal Grandfather Cancer Substance use disorder Paternal Grandfather No problems noted. Paternal Grandmother No problems noted. Brother No problems noted. Brother No problems noted. Brother Mental health disorder Sister No problems noted. Sister No problems noted. Sister No problems noted. Sister No problems noted. Social History Household Members: Spouse Housing: House Alcohol intake: never Patient Tobacco Use Status: Never used Tobacco e-Cigarette/Vaping Use: Never Used Second Hand Smoke Exposure: No service: No Current occupational status: employed Current occupation: [employer] Current occupational exposures/hazards: No Cognitive needs: No Hearing needs: No Vision needs: No Female Reproductive History Menstrual Age of Menarche: 13 Behavioral Health Assessment Weight Management Therapy Therapy Notes Details The patient is a 29-year-old female presenting for her second visit to complete the behavioral health assessment as part of the surgical weight loss program. She has a history of depression diagnosed in high school, for which she received counseling and briefly took a low dose of fluoxetine. Since 2021, she has been prescribed fluoxetine 40 mg by her PCP for depression. She denies any history of inpatient psychiatric care, mental health crises, substance use, or recent suicidal ideation, attempts, self-harm, or harm to others. Currently, she is stable, and her PHQ scores indicate no active depressive symptoms. Her mental status exam is within normal limits, with no evidence of impaired functioning. While she has experienced challenges with stress and comfort eating, as well as initially elevated BES scores indicating disordered eating patterns, she has demonstrated increased awareness of these behaviors and has successfully adhered to her meal and exercise plan, resulting in significant weight loss. At this time, the patient is cleared from a behavioral health perspective. Presenting Concerns Referral Source [facility]-Provider Reason for referral Completion of behavioral health assessment as part of process for weight-loss surgery. Precipitating Event Obesity. Living Situation Current Living Situation Rent At risk of losing current housing? No Satisfied with current living situation? Yes Comments PT lives with her and her son. Food/Weight/Diet Expectations of change PT started the program on 11/25/2024 at 248Lbs and the Initial goal to lose 10% of her weight before surgery, which is about 25lbs. Ultimate weight goal: 225lbs before surgery, which she already reached, as PT reported a recent weight of 224 as of 01/03/2025 PT is implementing the following: Current meal plan: 2 protein shakes, 2 to 2.5 protein bars, and one meal per day. Exercise plan: Elliptical 300cal at day, 3-4 days at week. Scale: yes. Communication w/ provider: Saturdays. History/Relationship with food emotional eater, when not feeling well, she would eat her comfort food, and then she would feel guilty. Comfort foods are: Pizza, Taco Gao, BB, Pace's. Example of meals before starting the program: Breakfast: 8 am half the week (eggs, sausage with toast) Lunch: Skip if had lunch would be later in the day, frozen nuggets, leftover pizza, or homemade -style meals. Dinner: 9 pm, same as lunch or take out. Snacks: 10am (nuts, apples w/ peanut butter), 5pm (popcorn or fruits like frozen mongos) Beverages: Coffee: 5-6 cups in a month, not daily. 1 cup/d with cream and sugar, Tea: 1-2 x week. Energy drinks: 1 at day. Soda: daily 2 at day. Juice: 1 at day of any of the following: Crystal light, regular Gatorade, lemonade or fruit punch. ETOH: none History/Relationship with weight The patient reports a lifelong history of being overweight, with weight concerns beginning in childhood. 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 She notes that she has never reached what she considers a healthy weight in adulthood. During her pregnancies, her weight reached approximately 250 lbs by the last trimester. Over the past ten years, her weight has ranged from a low of 180 lbs to a high of 255 lbs. History/Relationship with dieting - 2018 did a low-carb diet went down from 220Lbs to 180Lbs in about a year. - Exercise and self-diet. - Zepbound. Helping with cravings. Binge Eating Do you frequently eat large amounts of food in short periods of time, not feeling physically hungry? Yes Do you feel out of control when you eat a large amount of food in a short period of time? No Do you eat large amounts of food rapidly and typically alone? Yes Night Eating Do you wake up at least once during the night to eat? No If you wake up in the night, do you find that it is necessary to eat something in order to fall back asleep? No Do you have little or no appetite in the morning and feel very hungry in the evening, often overeating between dinner and when you go to bed? Yes Social History Family history and relationship PT is and has been for 5 years; they have a 4-year-old son. Both parents alive but . From her mom's side, she has 3 siblings (2 sisters, 1 brother), from father side a mixture of siblings and step-siblings, total of 6 (4 boys and 2 girls), PT is the youngest. PT reports good family relationships. Parental/Familial body component engineer obligations 4-year-old son. Caregiver for her mother. Developmental history and status None. Social support and mother. Community support PCP. Anglican/Spirituality Pentecostalism, non-jew. Cultural/Ethnic information . Mother from [place], father from [place]. Legal Involvement and History Current or historical involvement with the legal system? None reported. Education Highest grade completed Associates degree. Preferred learning style Learn by doing and Visual Currently enrolled in educational program? No Interested in further educational program? Yes Educational Interests/Skills PT would like to become a nurse or be in Healthcare. 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 No Financial Situation Describe current financial situation Comfortable Financial assistance? None Service Service? No Mental Health and Addiction Treatment Current/Past substance abuse? No Comments Alcohol: None. Cigarettes/Tobacco: None. Cannabis/Edibles: None. Current/Past addictive behavior concerns? No Psychiatric history The patient received counseling during high school and was diagnosed with depression, initially seeking support due to mood swings that impacted her relationship with her parents. At that time, she was started on a low dose of fluoxetine, which was later discontinued. Currently, she is not engaged in counseling, but her primary care provider has been prescribing fluoxetine 40 mg since 2021, initiated after the of her son, for symptoms of depression. The patient denies any history of inpatient psychiatric treatment, mental health crises, or need for higher levels of care. She does report experiencing suicidal ideation as a teenager, but has not had any recent episodes. At present, she is stable. Medical and Physical Health Summary Additional Medical History not covered in history None reported Sexual History concerns None reported Physical exam in the last year? Yes (November/2024.) Pain Screening Current pain? Yes Pain in the last few months? Yes Comments Back pain, joint pain that started a few months ago. Medications Is the patient compliant with medications? Yes Does the patient have Araiza Guardian in place? Not applicable Does the patient use complimentary health approaches? Yes Trauma/Abuse History History of trauma? Yes Questionnaires PHQ-9 Over the last 2 weeks, how often have you been bothered by any of the following problems? 1. Little interest or pleasure in doing things: not at all 2. Feeling down, depressed, or hopeless: not at all 3. Trouble falling or staying asleep, or sleeping too much: not at all 4. Feeling tired or having little energy: not at all 5. Poor appetite or overeating: not at all 6. Feeling bad about yourself - or that you are a failure or have let yourself or your family down: not at all 7. Trouble concentrating on things, such as reading the newspaper or watching television: not at all 8. Moving or speaking so slowly that other people could have noticed. Or the opposite - being so fidgety or restless that you have been moving around a lot more than usual: not at all 9. Thoughts that you would be better off or of hurting yourself in some way: not at all Total score: 0 Depression Screening Interpretation: Negative Depression Screening Done: Yes 67832 - PHQ-9 Billing: Yes Source: Developed by Drs. Rodger Mandujano, Sandra Nice, Jim Peterson and colleagues, with an educational tano from [employer]. Binge Eating Scale Group 1 A. I don't feel self-conscious about my wt. or body size when I'm with others. B. I feel concerned about how I look to others, but it normally does not make me fell disappointed with myself C. I do get self-conscious about my appearance and wt. which makes me feel disappointed in myself. D. I feel very self-conscious about my wt. and frequently I feel intense shame and disgust for myself. I try to avoid social contacts because of my self-consciousness. Response Group 1: D Group 2 A. I don't have any difficulty eating slowly in the proper manner. B. Although I seem to gobble down foods, I don't end up feeling stuffed because of eating to much. C. At times, I tend to eat quickly and then, I feel uncomfortably full afterwards. D. I have the habit of bolting down my food, without really chewing it. When this happens I usually feel uncomfortably stuffed because I've eaten to much. Response Group 2: D Group 3 A. I feel capable to control my eating urges when I want to. B. I feel like I have failed to control my eating more than the average person. C. I feel utterly helpless when it comes to feeling in control of my eating urges. D. Because I feel so helpless about controlling my eating I have become very desperate about trying to get control. Response Group 3: B Group 4 A. I don't have the habit of eating when I'm bored. B. I sometimes eat when I'm bored, but often I'm able to get busy and get my mind off food. C. I have a regular habit of eating when I'm bored, but occasionally, I can use some other activity to get my mind off eating. D. I have a strong habit of eating when I'm bored. Nothing seems to help me breath the habit. Response Group 4: D Group 5 A. I'm usually physically hungry when I eat something. B. Occasionally, I eat something on impulse even though I really am not hungry. C. I have the regular habit of eating foods, that I might not really enjoy, to satisfy a hungry feeling even though physically, I don't need the food. D. Although I'm not physically hungry, I get a hungry feeling in my mouth that only seems to be satisfied when I eat a food, like sandwich, that fills my mouth. Sometimes, when I eat the food to satisfy my mouth hunger, I then spit the food out so I won't gain weight. Response Group 5: B Group 6 A. I don't feel any guilt or self-hate after I overeat. B. After I overeat, occasionally I feel guilt or self-hate. C. Almost all the time I experience strong guilt or self-hate after I overeat. Response Group 6: C Group 7 A. I don't lose total control of my eating when dieting even after periods when I overeat. B. Sometimes when I eat a forbidden food on a diet, I feel like I blew it and eat even more. C. Frequently, I have the habit of saying to myself, I've blown it now, why not go all the way, when I overeat on a diet. When that happens I eat more. D. I have a regular habit of starting a strict diets for myself but I break the diets by going on an eating binge. My life seems to be either a feast or famine. Response Group 7: D Group 8 A. I rarely eat so much food that I feel uncomfortably stuffed afterwards. B. Usually about once a month, I each such a quantity of food, I end up feeling very stuffed. C. I have regular periods during the month when I eat large amounts of food, either at mealtime or at snacks. D. I eat so much food that I regularly feel quite uncomfortable after eating and sometimes a bit nauseous. Response Group 8: C Group 9 A. My level of calorie intake does not go up very high or go down very low on a regular basis. B. Sometimes after I overeat, I will try to reduce my caloric intake to almost nothing to compensate for the excess calories I've eaten. C. I have a regular habit of overeating during the night. It seems that my routine is not to be hungry in the morning but overeat in the evening. D. In my adult years, I have had week-long periods where I practically starve myself. This follows periods when I overeat. It seems I live a life of either feast or famine. Response Group 9: B Group 10 A. I usually am able to stop eating when I want to. I know when enough is enough. B. Every so often, I experience a compulsion to eat which I can't seem to control. C. Frequently, I experience strong urges to eat which I seem unable to control, but at other times I can control my eating urges. D. I feel incapable of controlling urges to eat. I have a fear of not being able to stop eating voluntarily. Response Group 10: B Group 11 A. I don't have any problem stopping eating when I feel full. B. I usually can stop eating when I feel full but occasionally overeat leaving me feeling uncomfortably stuffed. C. I have a problem stopping eating once I start and usually I feel uncomfortably stuffed after I eat a meal. D. Because I have a problem not being able to stop eating when I want, I sometimes have to induce vomiting to relieve my stuffed feeling. Response Group 11: B Group 12 A. I seem to eat just as much when I'm with others, Family social gatherings as when I'm by myself. B. Sometimes, when I'm with other persons, I don't eat as much as I want to eat because I'm self-conscious about my eating. C. Frequently, I eat only a small amount of food when others are present, because I'm very embarrassed about my eating. D. I feel so ashamed about overeating that I pick times to overeat when I know no one will see me. I feel like a closet eater. Response Group 12: B Group 13 A. I eat three meals a day with only an occasional between meal snack. B. I eat 3 meals a day, but I also normally snack between meals. C. When I am snacking heavily, I get in the habit of skipping regular meals. D. There are regular periods when I seem to be continually eating, with no planned meals. Response Group 13: B Group 14 A. I don't think much about trying to control unwanted eating urges. B. At least some of the time, I feel my thoughts are pre-occupied with trying to control my eating urges. C. I feel that frequently I spend much time thinking about how much I ate or about trying not to eat anymore. D. It seems to me that most of my waking hours are pre-occupied by thoughts about eating or not eating. I feel like I'm constantly struggling not to eat. Response Group 14: D Group 15 A. I don't think about food a great deal. B. I have strong craving for food but they last only for brief periods of time. C. I have days when I can't seem to think about anything else but food. D. Most of my days seem to be pre-occupied with thoughts about food. I feel like I live to eat. Response Group 15: B Group 16 A. I usually know whether or not I'm physically hungry. I take the right portion of food to satisfy me. B. Occasionally, I feel uncertain about knowing whether or not I'm physically hungry. A these times it's hard to know how much food I should take to satisfy me. C. Even though I might know how many calories I should eat, I don't have any idea what is a normal amount of food for me. Response Group 16: B Binge Eating Score: 28 Score less than 17 Minimal Risk Score between 18-26 Moderate Risk Score between 27-46 High Risk Assessment & Plan Assessment & Plan (1) Adjustment disorder with mixed anxiety and depressed mood: Code(s): F43.23 - Adjustment disorder with mixed anxiety and depressed mood (2) Pre-bariatric surgery psychological evaluation: Code(s): Z71.89 - Other specified counseling Plan The patient has been cleared from a behavioral health standpoint and can be submitted for insurance approval when ready. A follow-up behavioral health visit will be scheduled 1?4 weeks postoperatively to assess psychological adjustment and screen for any concerns. Next appointment: 1-4 Weeks Post-op. Telehealth Telehealth Telehealth Platform: [employer] Location of provider rendering services: other (Home office. [place], [place]) Location of patient: address on file Patient Identification confirmed using: Name, : Yes Telehealth method: voice only Patient verbally consented to treatment: Yes Patient verbally consented to billing insurance company: Yes Patient informed of any privacy concerns related to visit: Yes Minutes spent on Phone/Video with Pt.: 60 Coding Level of Care Code Established Pt Tele Psytx >53 mins ([id number]) Patient Type Established Diagnoses Adjustment disorder with mixed anxiety and depressed mood F43.23 Pre-bariatric surgery psychological evaluation Z71.89 Additional Codes PHQ-9 - 93136 - PHQ-9 Billing: Yes ([id number]) Time Spent (min) 60
== END 2025-01-07 13:47 | disposition home or self-care (01) ==
LOC: HO.HBST 12:27
PROVIDERS: PCP Nurse Practitioner Family; Visit Provider Counselor Mental Health
DX: F43.23 Adjustment disorder with mixed anxiety and depressed mood (principal); Z71.89 Other specified counseling
CPT/HCPCS: 90837

== ENCOUNTER 2025-01-12 08:37 | Day surgery (SDC) | payer OTHER, SELFPAY ==
[2024-12-21 13:37] VITALS: BMI 45.4
--- NOTE | 2024-12-23 15:24 | HO.ANESPROP2 ---
HPI - Anesthesia Eval Consult details Narrative: 29yo F for Upper Endoscopy Anesthesia Pre-Procedure Meds Is the patient on any of the following meds?: GLP1/DPP4 PMFSH Active Problems Active Problems: All Active Problems Bilateral hip pain (Acute) Vitamin D deficiency (Acute) Vitamin A deficiency (Acute) Hx: recurrent pneumonia (Acute) GERD (gastroesophageal reflux disease) (Acute) Morbid obesity (Acute) Lumbar back pain (Acute) Encounter for routine adult physical exam with abnormal findings (Acute) Sleep apnea (Acute) Wheezing (Acute) Asthma (Acute) Elevated sed rate (Acute) Elevated C-reactive protein (CRP) (Acute) Swelling of both ankles (Acute) Knee swelling (Acute) Multiple joint complaints (Acute) Anxiety and depression (Acute) Allergies (Acute) Eczematous dermatitis (Acute) Gestational diabetes (Acute) Elevated LFTs (Acute) Depression affecting (Acute) Postnasal drip (Acute) Obesity (Acute) Encounter for screening for malformation using ultrasound (Acute) Asthma (Acute) Allergic rhinitis (Acute) Family planning advice (Acute) SAB (spontaneous ) (Acute) Physical exam (Acute) Early stage of (Acute) Acute sinusitis (Acute) Past Medical History Medical History (Updated 12/06/24 @ 13:49 [facility] Hx: recurrent pneumonia GERD (gastroesophageal reflux disease) Morbid obesity Multiple joint complaints Elevated LFTs Obesity Cervical cancer screening Salivary stone Asthma Plantar warts HSV-1 infection Family History Family History Father No problems noted. Mother Mental health disorder Maternal Grandmother Diabetes mellitus Substance use disorder Mental health disorder Maternal Grandfather Cancer Substance use disorder Paternal Grandfather No problems noted. Paternal Grandmother No problems noted. Brother No problems noted. Brother No problems noted. Brother Mental health disorder Sister No problems noted. Sister No problems noted. Sister No problems noted. Sister No problems noted. Surgical History Surgical History (Updated 11/25/24 @ 11:23 by Carlos Schwartz MD) History of cholecystectomy History of removal of cyst Social History Social History Household Members: Spouse Housing: House Alcohol intake: never Patient Tobacco Use Status: Never used Tobacco e-Cigarette/Vaping Use: Never Used Second Hand Smoke Exposure: No service: No Current occupational status: employed Current occupation: [employer] Current occupational exposures/hazards: No Cognitive needs: No Hearing needs: No Vision needs: No Meds Allergies Allergy/AdvReac Type Severity Reaction Status Date / Time amoxicillin Allergy Unknown hives Verified 11/25/24 11:18 Home Medications ?Medication ?Instructions ?Recorded ?Confirmed ?Last Taken ?Type omeprazole 20 mg capsule,delayed 20 mg PO DAILY PRN 10/03/22 11/25/24 Unknown History release levocetirizine 5 mg tablet (Xyzal) 5 mg PO DAILY 10/23/23 11/25/24 Unknown History tirzepatide (weight loss) 2.5 2.5 mg subcut QWEEK 11/19/24 11/25/24 Unknown History mg/0.5 mL subcutaneous pen injector (Zepbound) Exam Height,Weight and Vital Signs: Height 5 ft 2 in Weight 112.491 kg Assessment and Plan Assessment Anesthesia Assessment: Chart Reviewed
--- NOTE | 2025-01-08 09:11 | HO.ANESPROP2 ---
Documented by User: Zaida Savage NP 01/08/25 09:12 HPI - Anesthesia Eval Consult details Narrative: 29yo F for Upper Endoscopy BMI 45 Anesthesia Pre-Procedure Meds Is the patient on any of the following meds?: GLP1/DPP4 PMFSH Active Problems Active Problems: All Active Problems Pre-bariatric surgery psychological evaluation (Acute) Bilateral hip pain (Acute) Vitamin D deficiency (Acute) Vitamin A deficiency (Acute) Hx: recurrent pneumonia (Acute) GERD (gastroesophageal reflux disease) (Acute) Morbid obesity (Acute) Lumbar back pain (Acute) Encounter for routine adult physical exam with abnormal findings (Acute) Sleep apnea (Acute) Wheezing (Acute) Asthma (Acute) Elevated sed rate (Acute) Elevated C-reactive protein (CRP) (Acute) Swelling of both ankles (Acute) Knee swelling (Acute) Multiple joint complaints (Acute) Anxiety and depression (Acute) Allergies (Acute) Eczematous dermatitis (Acute) Gestational diabetes (Acute) Elevated LFTs (Acute) Depression affecting (Acute) Postnasal drip (Acute) Obesity (Acute) Encounter for screening for malformation using ultrasound (Acute) Asthma (Acute) Allergic rhinitis (Acute) Family planning advice (Acute) SAB (spontaneous ) (Acute) Physical exam (Acute) Early stage of (Acute) Acute sinusitis (Acute) Past Medical History Medical History Hx: recurrent pneumonia GERD (gastroesophageal reflux disease) Morbid obesity Multiple joint complaints Elevated LFTs Obesity Cervical cancer screening Salivary stone Asthma Plantar warts HSV-1 infection Family History Family History Father No problems noted. Mother Mental health disorder Maternal Grandmother Diabetes mellitus Substance use disorder Mental health disorder Maternal Grandfather Cancer Substance use disorder Paternal Grandfather No problems noted. Paternal Grandmother No problems noted. Brother No problems noted. Brother No problems noted. Brother Mental health disorder Sister No problems noted. Sister No problems noted. Sister No problems noted. Sister No problems noted. Surgical History Surgical History History of cholecystectomy History of removal of cyst Social History Social History Household Members: Spouse Housing: House Alcohol intake: never Patient Tobacco Use Status: Never used Tobacco e-Cigarette/Vaping Use: Never Used Second Hand Smoke Exposure: No Use of substances other than those prescribed or required for medical reasons: No Are you DNR?: No Advance Directives: No Advance Directives Information Provided: Yes Patient : No service: No Current occupational status: employed Current occupation: [employer] Current occupational exposures/hazards: No Cognitive needs: No Hearing needs: No Vision needs: No Meds Allergies Allergy/AdvReac Type Severity Reaction Status Date / Time amoxicillin Allergy Unknown hives Verified 11/25/24 11:18 Home Medications ?Medication ?Instructions ?Recorded ?Confirmed ?Last Taken ?Type omeprazole 20 mg capsule,delayed 20 mg PO DAILY PRN 10/03/22 11/25/24 Unknown History release levocetirizine 5 mg tablet (Xyzal) 5 mg PO DAILY 10/23/23 11/25/24 Unknown History tirzepatide (weight loss) 2.5 2.5 mg subcut QWEEK 11/19/24 11/25/24 Unknown History mg/0.5 mL subcutaneous pen injector (Zepbound) Exam Height,Weight and Vital Signs: Height 5 ft 2 in Weight 112.491 kg Assessment and Plan Assessment Anesthesia Assessment: Chart Reviewed Documented by User: Chandni Duncan MD 01/12/25 11:32 PMFSH Past Medical History Medical History Hx: recurrent pneumonia GERD (gastroesophageal reflux disease) Morbid obesity Multiple joint complaints Elevated LFTs Obesity Cervical cancer screening Salivary stone Asthma Plantar warts HSV-1 infection Family History Family History Father No problems noted. Mother Mental health disorder Maternal Grandmother Diabetes mellitus Substance use disorder Mental health disorder Maternal Grandfather Cancer Substance use disorder Paternal Grandfather No problems noted. Paternal Grandmother No problems noted. Brother No problems noted. Brother No problems noted. Brother Mental health disorder Sister No problems noted. Sister No problems noted. Sister No problems noted. Sister No problems noted. Family history of problems with anesthesia: No Surgical History Surgical History History of cholecystectomy History of removal of cyst History of Problems with Anesthesia: No Social History Social History Household Members: Spouse Housing: House Alcohol intake: never Patient Tobacco Use Status: Never used Tobacco e-Cigarette/Vaping Use: Never Used Second Hand Smoke Exposure: No Use of substances other than those prescribed or required for medical reasons: No Are you DNR?: No Advance Directives: No Advance Directives Information Provided: Yes Patient : No service: No Current occupational status: employed Current occupation: [employer] Current occupational exposures/hazards: No Cognitive needs: No Hearing needs: No Vision needs: No Meds Allergies Allergy/AdvReac Type Severity Reaction Status Date / Time amoxicillin Allergy Unknown hives Verified 11/25/24 11:18 Home Medications ?Medication ?Instructions ?Recorded ?Confirmed ?Last Taken ?Type omeprazole 20 mg capsule,delayed 20 mg PO DAILY PRN 10/03/22 11/25/24 Unknown History release levocetirizine 5 mg tablet (Xyzal) 5 mg PO DAILY 10/23/23 11/25/24 Unknown History tirzepatide (weight loss) 2.5 2.5 mg subcut QWEEK 11/19/24 11/25/24 Unknown History mg/0.5 mL subcutaneous pen injector (Zepbound) Exam Airway Mallampati Class: II TM Dist: >3cm Neck ROM: Full Heart: rrr Lungs: cta Assessment and Plan Assessment Anesthesia Assessment: Anesthesia Plan Discussed Final Anesthetic Review Family History of Problems with Anesthesia: No History of Problems with Anesthesia: No NPO: Yes ASA Class: III Final Preanesthetic Review: No Changes in Pt Med Stat, Meds/Allgs Chart Reviewed, Consent Obtained/Reviewed and Anes Risks/Benef Reviewed Patient Risk: Intermediate Procedure Risk: Low Anesthetic Plan Anesthetic Plan: MAC: Disposition: Standard PACU
--- NOTE | 2025-01-09 11:11 | MHC.SHP ---
Pre-Procedural Eval Section A - 24 Hr Update-Section A only Date of Service: 01/12/25 The patient is an INPATIENT: No The patient has been examined within 24 hours of the surgical procedure. The History & Physical has been completed within 30 days and I have reviewed it.: No Section B - Complete if H&P > 30 days Chief Complaint: Morbid (severe) obesity due to excess calories Details of Present Illness: GERD Relevant Family History (Specify if Yes): No Relevant Social History: None Present Medications: None Medical History: No relevant PMH History of Previous Operations: No relevant previous surgery Allergies: Allergies Allergy/AdvReac Type Severity Reaction Status Date / Time amoxicillin Allergy Unknown hives Verified 11/25/24 11:18 Review of Systems Sugical H&P ROS: Negative: Constitution, Cardiovascular, Respiratory, Neurological, Psychiatric, Hem-Onc, Allergic/Immunologic, Gastrointestinal, Genitourinary, Musculoskeletal, Integumentary, Endocrine and Eyes/Ears/Nose/Throat Exam Surgical H&P Exam: Normal: HEENT, Normal: Heart, Normal: Lungs, Normal: Extremities, Normal: Abdomen, Normal: Skin and Normal: Neurological Plan Diagnosis/Plan: Unchanged (EGD to assess etiology of GERD. Risks of bleeding and perforation were discussed with the patient and she is in agreement with the plan.) I have reviewed the history and physical and performed a pertinent physical examination on my patient. No changes have occurred unless specified. Time Spent With Patient Time: Total time managing care of this patient today ____ minutes.
[2025-01-12 09:03] VITALS: BMI 41.6
[2025-01-12 09:07] VITALS: BP 115/77; PULSE 78; RESP 16; TEMP 36.8; O2SAT 97
[2025-01-12 09:17] LABS: UPreg QC Valid YES
[2025-01-12] MEDS: Lactated Ringers 1,000 ML 100 ML IVCONT (09:17)
--- NOTE | 2025-01-12 11:36 | P.BOP_ITS ---
Brief Operative Note Date of Service: 01/12/25 Pre-op diagnosis: GERD Post-op diagnosis: same Procedure: PROCEDURE DATE: 01/12/2025 PREOPERATIVE DIAGNOSIS: GERD POSTOPERATIVE DIAGNOSIS: ?Same as above. Moderate size fixed diaphragmatic hernia PROCEDURE: Dgaiqmaw-uixrcu-axzmgtujfzet with biopsies Surgeon: Heidi Schwartz M.D.. Ph.D. Travel Physical Therapist: None ? Anesthesia: IV sedation Estimated blood loss: ?Minimal FINDINGS AND PROCEDURE: ? OPERATIVE INDICATIONS: ?The patient is a 29 year old female known to me who is interested in bariatric surgery. The patient has GERD. Risks and complications of the surgery were discussed with the patient in advance particularly the possibility of perforation or bleeding that may require surgical intervention. The patient understood the risks and was in agreement with the plan. ? PROCEDURE: After informed consent was obtained by the patient, the patient was ?transferred to the Operating Room and was placed in the supine position.? After successful induction of IV sedation, a mouth block was inserted and the patient was placed in the left lateral decubitus position. An upper endoscopy was performed next, the oropharynx and esophagus appeared within the normal limits. There was a moderate size fixed hiatal hernia. The z- line was smooth. Two biopsies were obtained from the distal esophagus 2-3 cm proximal to the GE junction and two additional biopsies from the GE junction. The stomach was entered and it appeared to be of normal size. There was no gastritis. There was no stricture or ulcer. A biopsy was obtained from the antrum and the fundus. No significant bleeding was noted from any of the biopsy sites. Retroflexion of the scope confirmed the presence of a moderate size dipahragmatic hernia. The scope was then advanced into the duodenum which appea red to be normal as well. At that point the duodenum ?and the stomach were decompressed and the scope was withdrawn from the patient's mouth. The patient extubated and was transferred in stable condition to the Recovery Room for further care. I was present and performed all steps of the procedure. There were no residents to assist with this case. Marty Schwartz M.D., Ph.D. Surgeon: Carlos Schwartz MD Anesthesia: MAC Was an Travel Physical Therapist used for this Procedure?: No Estimated blood loss (mL): 0 IV fluids (mL): 400 Urine output (mL): 0 (No Clay to record output) Pathology: other (1) antrum x1, 2) fundus x1, 3) GE junction x2, 4) distal esophagus x2) Condition: stable Disposition: PACU
[2025-01-12 12:00] VITALS: BP 114/67; PULSE 107; RESP 18; TEMP 36.8; O2SAT 100
[2025-01-12 12:15] VITALS: BP 107/62; PULSE 83; RESP 16; TEMP 36.7; O2SAT 97
== END 2025-01-12 12:48 | disposition home or self-care (01) ==
PROVIDERS: Nurse Practitioner; PCP Nurse Practitioner Family; Visit Provider Surgery
PROC: 0DJ08ZZ Inspection of Upper Intestinal Tract, Via Natural or Artificial Opening Endoscopic (ICD-10-PCS; CPT 43235; principal; 2025-01-12 11:30)
DX: K21.9 Gastro-esophageal reflux disease without esophagitis (principal); E66.01 Morbid (severe) obesity due to excess calories; Z68.42 Body mass index [BMI] 45.0-49.9, adult; K29.50 Unspecified chronic gastritis without bleeding; K44.9 Diaphragmatic hernia without obstruction or gangrene; J45.909 Unspecified asthma, uncomplicated; R79.89 Other specified abnormal findings of blood chemistry; Z87.01 Personal history of pneumonia (recurrent); Z79.51 Long term (current) use of inhaled steroids; Z79.899 Other long term (current) drug therapy; Z79.85 Long-term (current) use of injectable non-insulin antidiabetic drugs; Z88.1 Allergy status to other antibiotic agents; Z90.49 Acquired absence of other specified parts of digestive tract
CPT/HCPCS: 43239; 81025; 88305; 88313; 88342; J2003; J2704

== ENCOUNTER → 2025-01-12 08:37 | Outpatient (BNV) | payer OTHER, SELFPAY | PROVIDERS: PCP Nurse Practitioner Family; Visit Provider Surgery | DX: K21.9 Gastro-esophageal reflux disease without esophagitis (principal); K44.9 Diaphragmatic hernia without obstruction or gangrene | CPT/HCPCS: 43239 ==

== ENCOUNTER 2025-01-28 08:04 | Outpatient (REF) | payer OTHER, SELFPAY ==
--- NOTE | 2025-01-28 08:06 | PFT_ITS ---
Flows: FEV1: 101 % of predicted at 3.04 L FVC: 122 % of predicted at 4.33 L FEV1/FVC: 70 % Bronchodilator response: Present Volumes: Total lung capacity: 112 % of predicted at 5.38 L Residual volume: 144 % of predicted at 1.54 L Slow vital capacity: 104 % of predicted at 3.84 L Expiratory reserve volume: 0 % of predicted at 0 L Diffusion capacity: Normal Impression: Owwb-ub-asymhehq obstructive ventilatory defect with positive bronchodilator response. Increased residual volume suggests air trapping. Decreased expiratory reserve volume suggests extrathoracic restriction likely secondary to abdominal obesity. MTDD
[2025-01-28 08:50] VITALS: PULSE 91; O2SAT 98
== END 2025-01-28 08:05 | disposition home or self-care (01) ==
LOC: HO.RESP 08:04
PROVIDERS: PCP Nurse Practitioner Family; Visit Provider Nurse Practitioner Family
DX: J45.909 Unspecified asthma, uncomplicated (principal)
CPT/HCPCS: 94010; 94640; 94727; 94729

== ENCOUNTER → 2025-01-28 08:06 | Outpatient (BNV) | payer OTHER, SELFPAY | PROVIDERS: PCP Nurse Practitioner Family; Visit Provider Internal Medicine Pulmonary Disease | DX: J98.4 Other disorders of lung (principal) | CPT/HCPCS: 94060; 94727; 94729 ==

== ENCOUNTER 2025-02-24 08:17 | Outpatient (AMB) | payer MEDICAID, SELFPAY ==
--- NOTE | 2025-02-24 10:51 | MHC.OFFVISWM ---
VS Expanded 02/24/25 11:01 Height 5 ft 2 in Weight 218 lb BMI 39.9 Body Fat % 51 Body Fat Mass 111.2 Fat Free Mass 106.8 Visceral Fat Rating 21 Body Water % 33.6 Body Water Mass 73.2 Basal Metabolic Rate/Score 1,416 Intake Visit Reasons: TV Pre Op LSG 03/04/25 Allergies amoxicillin Allergy (Unknown, Verified 02/24/25 10:51) hives Medication List - Last Reconciled 02/24/25 by Carlos Schwartz MD albuterol sulfate 90 mcg/actuation 1 puff PO Q4H PRN albuterol sulfate 2.5 mg (3 mL) inhalation Q6H 30 days budesonide-formoterol 80-4.5 mcg/actuation (Symbicort) 1 puff inhalation BID cholecalciferol (vitamin D3) 125 mcg PO DAILY ciprofloxacin HCl (Cipro) 250 mg PO BID 3 days fluoxetine 40 mg PO DAILY 90 days fluticasone propionate 50 mcg/actuation (Flonase Allergy Relief) 2 sprays intranasal DAILY levocetirizine (Xyzal) 5 mg PO DAILY omeprazole 20 mg PO DAILY PRN ondansetron 4 mg PO Q12H pantoprazole 40 mg PO DAILY peak flow meter As directed polyethylene glycol 3350 17 grams PO DAILY sucralfate 10 mL PO BID tirzepatide (weight loss) (Zepbound) 7.5 mg (0.5 mL) subcut QWEEK vitamin A palmitate 6,000 mcg (2 x 3,000 mcg (10,000 unit)) PO DAILY HPI HPI TV Pre Op LSG 03/04/25: Details: Start time: 10.45am, End time: 11.05am ?I spent 15 minutes speaking with the patient on the phone plus an additional 5 minutes reviewing and updating records for a total of 20 minutes HPI Comments Details: Overall weight loss: 30.8lbs, or 12.4% Is doing TWO 16gr Atkins shakes and TWO Atkins bars and one meal (8 forks each) Exercise: is doing treadmill daily PFSH Medical History Hx: recurrent pneumonia GERD (gastroesophageal reflux disease) Morbid obesity Multiple joint complaints Elevated LFTs Obesity Cervical cancer screening Salivary stone Asthma Plantar warts HSV-1 infection Surgical History History of cholecystectomy History of removal of cyst Family History Father No problems noted. Mother Mental health disorder Maternal Grandmother Diabetes mellitus Substance use disorder Mental health disorder Maternal Grandfather Cancer Substance use disorder Paternal Grandfather No problems noted. Paternal Grandmother No problems noted. Brother No problems noted. Brother No problems noted. Brother Mental health disorder Sister No problems noted. Sister No problems noted. Sister No problems noted. Sister No problems noted. Social History Household Members: Spouse Housing: House Alcohol intake: never Patient Tobacco Use Status: Never used Tobacco e-Cigarette/Vaping Use: Never Used Second Hand Smoke Exposure: No service: No Current occupational status: employed Current occupation: [employer] Current occupational exposures/hazards: No Cognitive needs: No Hearing needs: No Vision needs: No Female Reproductive History Menstrual Age of Menarche: 13 Telehealth Telehealth Telehealth Platform: Telephone Location of provider rendering services: practice address Location of patient: address on file Patient Identification confirmed using: Name, : Yes Telehealth method: voice only Patient verbally consented to treatment: Yes Patient verbally consented to billing insurance company: Yes Patient informed of any privacy concerns related to visit: Yes Minutes spent on Phone/Video with Pt.: 20 Assessment & Plan Assessment & Plan (1) Obesity: Code(s): E66.9 - Obesity, unspecified Category: Medical Qualifiers: Obesity type: due to excess calories Obesity classification: unspecified obesity classification Serious obesity comorbidity presence: without serious comorbidity Qualified Code(s): E66.09 - Other obesity due to excess calories Plan: 1. Plan for lap sleeve gastrectomy including upper GI endoscopy. All tests has been completed and reviewed and the patient is cleared for the surgery. ?If diaphragmatic or ventral hernias are present at time of surgery, these will be repaired laparoscopically as well. Risks and complications were discussed in detail including possible conversion to an open procedure, anastomotic leak, bleeding requiring transfusion, small bowel obstruction, , DVT and pulmonary embolism, cardiac, or pulmonary complications, as termite control servicer complications such as anastomotic ulcer, insufficient weight loss and vitamin deficiencies. I emphasized the importance of close follow-up, adherence to instructions and good communication. So far she has proven to be an excellent communicator and very compliant with all our directions accomplishing a great weight loss. I believe that she is an excellent candidate and she is ready. 2. Preop prescriptions were provided and explained the purpose of each one. Need to be purchased preop. Start Pantoprazole now as you get it from the pharmacy, 1 pill per day. Sucralfate and Zofran are for after surgery as needed. 3. Bowel prep: please do 7 packets ?of Miralax mixing each one with a an 8oz glass of water, crystal light, gatorade zero, or propel ?on 03/02/25 and the same amount on 03/03/25. The Miralax you begin with one packet at a time in 8oz water or crystal light, gatorade zero, or propel ?as early in the day as you can and you do them back to back until you finish them. Continue the protein shakes during ?the bowel prep. 4. Needs to purchase 1oz medicine cups . 5. Needs to purchase Children's liquid Tylenol for postop pain control. 6. Avoid aspirin, motrin, Advil, Aleve, Meloxicam, Excedrin, Ibuprofen, Naproxyn. Tylenol is OK. 7. She needs to purchase the Celebrate multivitamins from the hospital's gift [facility], chewable or pills whatever you prefer. 8. Will do basic preop blood work-up any day between 02/25/25 and Saturday02/26/25 fasting for 12 hours and is scheduled to see the Anesthesiologist prior to the day of surgery. 10. Importance of adherence to postop follow-up and recommendations was underscored and she understands that. 11. Stop food and bars as of tomorrow 02/25/25 and continue with 5 16gr Atkins liquid protein shakes at 9am-11am, 12pm-2pm, 3pm-5pm, 6pm-8pm and at 9pm-11pm 12. No soups, broths or V8 13. The patient's?medical?history has been reviewed and they are considered low risk for post op DVT and therefore DVT prophylaxis is not considered necessary. Travel after surgery was reviewed. The patient has not disclosed any travel plans during the first 30 days after surgery and they have been advised that within the first 30 days after surgery any bus, plane, train or car travel over 2 hours in duration is contraindicated due to the possibility of developing blood clots from immobility. Any travel, needs to include periods of ambulation of 10 minutes in duration every 2 hours.? Patient was instructed to discuss any plans for travel during this period with their bariatric surgeon.? 14. Last Zepbound dose should be today. Do not use it after today 15. Please take at the day of surgery the following medications: NONE 16. Stop any control pills and don't use them for one month after surgery 17. Absolutely no smoking or vaping, or marijuana until the surgery and for at least the first 4 weeks. Only nicotine patches are allowed. 18. Send me weight measurements on 03/04/25, the day of surgery before you go to the hospital. 19. Avoid any steroids by mouth for any reason. Let me know if someone prescribes them to you 20. These instructions supersede anything else you read in the handbook, anything you watched in videos or classes or you were told by any other provider. If there is any conflict, you follow the above instructions and nothing else. Orders: Orders Complete Blood Count Auto Diff Today E66.01 - Morbid (severe) obesity due to excess calories C Reactive Protein Today E66.01 - Morbid (severe) obesity due to excess calories Hemoglobin A1c Today E66.01 - Morbid (severe) obesity due to excess calories Type and Screen Today E66.01 - Morbid (severe) obesity due to excess calories TSH reflex Free T4 Today E66.01 - Morbid (severe) obesity due to excess calories Insulin Today E66.01 - Morbid (severe) obesity due to excess calories Lipid Panel Today E66.01 - Morbid (severe) obesity due to excess calories Comprehensive Met. Panel Today E66.01 - Morbid (severe) obesity due to excess calories Partial Thromboplastin Time Today E66.01 - Morbid (severe) obesity due to excess calories Prothrombin Time INR Today E66.01 - Morbid (severe) obesity due to excess calories Medications: New pantoprazole 40 mg PO DAILY 90 tabs 0RF K21.9 - Gastro-esophageal reflux disease without esophagitis polyethylene glycol 3350 Mix each measuring cup with 8oz of water, Crystal light, or Gatorade zero, or Propel and do 7 measuring cups on 03/02/25 and another 7 measuring cups on 03/03/25 17 grams PO DAILY 238 grams 0RF Z01.818 - Encounter for other preprocedural examination sucralfate 10 mL PO BID 600 mL 2RF K21.9 - Gastro-esophageal reflux disease without esophagitis ondansetron Only take one every 12 hours as needed if you have nausea 4 mg PO Q12H 20 tabs 0RF nausea and vomiting R11.0 - Nausea
[2025-02-24 11:01] VITALS: BMI 39.9
== END 2025-02-24 12:05 | disposition home or self-care (01) ==
LOC: HO.HBS 08:17
PROVIDERS: PCP Nurse Practitioner Family; Visit Provider Surgery
DX: E66.9 Obesity, unspecified (principal); Z68.39 Body mass index [BMI] 39.0-39.9, adult
CPT/HCPCS: 99214

== ENCOUNTER 2025-02-26 09:59 | Outpatient (REF) | payer MEDICAID, SELFPAY ==
[2025-02-26 10:29] LABS: INTERNATIONAL NORM RATIO 1.1 (0.9-1.1); Prothrombin Time 12.3 SEC (10.9-12.4)
[2025-02-26 10:32] LABS: Partial Thromboplastin Time 35.6 SEC (26.7-34.1)
[2025-02-26 10:36] LABS: MANUAL DIFF FLAG NO
[2025-02-26 10:47] LABS: Hematocrit 42.6 % (37.0-47.0); Hemoglobin 14.0 g/dl (12.0-16.0); Imm Gran Abs Auto 0.03 X10*3/uL (0.00-0.03); Imm Gran Pct Auto 0.3 % (0.0-0.4); Lymphocytes Absolute Auto 1.8 X10*3/uL (1.2-4.9); Mean Corpuscular HGB Conc 32.9 g/dl (31.0-35.0); Mean Corpuscular Hemoglobin 28.5 pg (27.0-33.0); Mean Corpuscular Volume 86.8 fL (80.0-98.0); NRBC Abs Auto 0.000 X10*3/uL (0.0-0.012); NRBC Pct Auto 0.0 /100WBC (0.0-0.2); Platelet Count 278 X10*3/uL (160-400); Red Blood Count 4.91 X10*6/uL (4.20-5.50); White Blood Count 11.2 X10*3/uL (4.8-10.8)
[2025-02-26 13:19] LABS: Anion Gap 11 (12-20)
[2025-02-26 13:24] LABS: Alanine Aminotransferase 38 U/L (0-31); Albumin Level 4.3 g/dL (3.5-5.0); Alkaline Phosphatase 106 U/L (39-117); Aspartate Amino Transferase 27 U/L (5-31); Blood Urea Nitrogen 13 mg/dL (9-16); Calcium 9.2 mg/dL (8.4-10.2); Carbon Dioxide 25 mmol/L (22-29); Chloride 108 mmol/L (96-108); Cholesterol 103 mg/dL (<200); Estimated Glomerular Filt Rate > 60; HDL Cholesterol 33 mg/dL (>40); Potassium 4.7 mmol/L (3.3-5.1); Sodium 139 mmol/L (135-145); Total Protein 8.0 g/dL (6.5-8.0); Triglycerides 45 mg/dL (<150)
== END 2025-02-26 10:00 | disposition home or self-care (01) ==
LOC: HO.LAB 09:59
PROVIDERS: PCP Nurse Practitioner Family; Visit Provider Surgery
DX: E66.01 Morbid (severe) obesity due to excess calories (principal)
CPT/HCPCS: 36415; 80053; 80061; 83036; 83525; 84443; 85025; 85610; 85730; 86140; 86850; 86900; 86901

== ENCOUNTER 2025-03-03 15:26 | Outpatient (REF) | payer OTHER, SELFPAY ==
--- NOTE | ~2025-03-03 | XR_ITS ---
EXAMINATION: XR CHEST 2 VIEWS HISTORY: J98.8 - Other specified respiratory disorders COMPARISON: Comparison is made with the prior examination dated 11/27/2024. FINDINGS: PA and lateral views of the chest are submitted. The lungs are expanded and clear. There is no pleural effusion, pneumothorax, or pulmonary vascular congestion. The heart is normal in size. The bones are intact. XR/XR chest 2V IMPRESSION: No acute cardiopulmonary abnormality. Electronically signed by: Rodger Joy MD 03/03/2025 03:51 PM EDT
== END 2025-03-03 15:27 | disposition home or self-care (01) ==
LOC: HO.XRAY 15:26
PROVIDERS: PCP Nurse Practitioner Family; Visit Provider Surgery
DX: J98.8 Other specified respiratory disorders (principal)
CPT/HCPCS: 71046

== ENCOUNTER → 2025-03-03 15:34 | Outpatient (BNV) | payer MEDICAID, SELFPAY | PROVIDERS: PCP Nurse Practitioner Family; Visit Provider Radiology Diagnostic Radiology | DX: J98.8 Other specified respiratory disorders (principal) | CPT/HCPCS: 71046 ==

== ENCOUNTER 2025-03-04 06:08 | Inpatient (IN) | payer OTHER, SELFPAY ==
[2025-03-01 12:42] VITALS: BMI 38.4
--- NOTE | 2025-03-01 13:12 | HO.ANESPROP2 ---
Documented by User: Vivian Walsh NP 03/03/25 13:09 HPI - Anesthesia Eval Consult details Narrative: 29 yr old female for Gastrectomy Sleeve,EGD,possible Diaphragmatic Hernia,possible Ventral Hernia, possible Open Asthma: pt reported recent exacerbation to PAT RN, still using nebulizer at bedtime, albuterol daily, only using ICS/LABA once daily. GERD: on PPI Anesthesia Pre-Procedure Meds Is the patient on any of the following meds?: GLP1/DPP4 PMFSH Active Problems Active Problems: All Active Problems Pre-bariatric surgery psychological evaluation (Acute) Bilateral hip pain (Acute) Vitamin D deficiency (Acute) Vitamin A deficiency (Acute) Lumbar back pain (Acute) Encounter for routine adult physical exam with abnormal findings (Acute) Sleep apnea (Acute) Wheezing (Acute) Elevated sed rate (Acute) Elevated C-reactive protein (CRP) (Acute) Swelling of both ankles (Acute) Knee swelling (Acute) Anxiety and depression (Acute) Allergies (Acute) Eczematous dermatitis (Acute) Gestational diabetes (Acute) Depression affecting (Acute) Postnasal drip (Acute) Encounter for screening for malformation using ultrasound (Acute) Asthma (Acute) Allergic rhinitis (Acute) Family planning advice (Acute) SAB (spontaneous ) (Acute) Physical exam (Acute) Early stage of (Acute) Acute sinusitis (Acute) Hx: recurrent pneumonia (Acute) GERD (gastroesophageal reflux disease) (Acute) Morbid obesity (Acute) Asthma (Acute) Multiple joint complaints (Acute) Elevated LFTs (Acute) Obesity (Acute) Past Medical History Medical History Liver fibrosis Steatosis, liver Hiatal hernia Depression Hx: recurrent pneumonia GERD (gastroesophageal reflux disease) Morbid obesity Multiple joint complaints Elevated LFTs Obesity Cervical cancer screening Salivary stone Asthma Plantar warts HSV-1 infection Family History Family History Father No problems noted. Mother Mental health disorder Maternal Grandmother Diabetes mellitus Substance use disorder Mental health disorder Maternal Grandfather Cancer Substance use disorder Paternal Grandfather No problems noted. Paternal Grandmother No problems noted. Brother No problems noted. Brother No problems noted. Brother Mental health disorder Sister No problems noted. Sister No problems noted. Sister No problems noted. Sister No problems noted. Family history of problems with anesthesia: No Surgical History Surgical History History of esophagogastroduodenoscopy (EGD) History of cholecystectomy History of removal of cyst History of Problems with Anesthesia: No Social History Social History Household Members: Spouse Housing: House Are you a primary ambulatory care to a significant other at home: No Do you presently have visiting nurse or other home services: No Alcohol intake: never Patient Tobacco Use Status: Never used Tobacco e-Cigarette/Vaping Use: Never Used Second Hand Smoke Exposure: No Use of substances other than those prescribed or required for medical reasons: No Have you been hit, kicked, punched, or otherwise hurt by someone within the past year? If so, by whom?: No Are you DNR?: No Advance Directives: No Advance Directives Information Provided: Yes Advance Directives on File: No Patient : No : No Poor oral hygiene: No service: No Current occupational status: employed Current occupation: [employer] Current occupational exposures/hazards: No Cognitive needs: No Hearing needs: No Vision needs: No Meds Allergies Allergy/AdvReac Type Severity Reaction Status Date / Time amoxicillin Allergy Unknown hives Verified 03/04/25 06:18 Home Medications ?Medication ?Instructions ?Recorded ?Confirmed ?Last Taken ?Type omeprazole 20 mg capsule,delayed 20 mg PO DAILY 10/03/22 03/04/25 Unknown History release levocetirizine 5 mg tablet (Xyzal) 5 mg PO DAILY 10/23/23 03/04/25 Unknown History albuterol sulfate 2.5 mg/3 mL 2.5 mg inhalation Q6H PRN 03/01/25 03/04/25 Unknown History (0.083 %) solution for nebulization Shortness Of Breath Or Wheezing budesonide-formoterol HFA 80 2 puff inhalation DAILY 03/01/25 03/04/25 03/04/25 05:20 History mcg-4.5 mcg/actuation aerosol inhaler (Symbicort) Exam Height,Weight and Vital Signs: Height 5 ft 2 in Weight 95.254 kg Pertinent Lab Results Pertinent Lab Results: Laboratory Tests 02/26/25 10:12 Blood Type B Positive Antibody Screen NEGATIVE Laboratory Tests 02/26/25 10:12 WBC 11.2 H RBC 4.91 Hgb 14.0 Hct 42.6 Plt Count 278 Sodium 139 Potassium 4.7 D BUN 13 Creatinine 0.78 Narrative Narrative: EKG 11/2024 Vent. Rate : 80 BPM Atrial Rate : 80 BPM P-R Int : 148 ms QRS Dur : 82 ms QT Int : 360 ms P-R-T Axes : 18 53 44 degrees QTcB Int : 415 ms Normal sinus rhythm Normal ECG No previous ECGs available Assessment and Plan Final Anesthetic Review Family History of Problems with Anesthesia: No History of Problems with Anesthesia: No Documented by User: Daniela Barboza MD 03/04/25 08:14 PMF Past Medical History Medical History Liver fibrosis Steatosis, liver Hiatal hernia Depression Hx: recurrent pneumonia GERD (gastroesophageal reflux disease) Morbid obesity Multiple joint complaints Elevated LFTs Obesity Cervical cancer screening Salivary stone Asthma Plantar warts HSV-1 infection Family History Family History Father No problems noted. Mother Mental health disorder Maternal Grandmother Diabetes mellitus Substance use disorder Mental health disorder Maternal Grandfather Cancer Substance use disorder Paternal Grandfather No problems noted. Paternal Grandmother No problems noted. Brother No problems noted. Brother No problems noted. Brother Mental health disorder Sister No problems noted. Sister No problems noted. Sister No problems noted. Sister No problems noted. Surgical History Surgical History History of esophagogastroduodenoscopy (EGD) History of cholecystectomy History of removal of cyst Social History Social History Household Members: Spouse Housing: House Are you a primary ambulatory care to a significant other at home: No Do you presently have visiting nurse or other home services: No Alcohol intake: never Patient Tobacco Use Status: Never used Tobacco e-Cigarette/Vaping Use: Never Used Second Hand Smoke Exposure: No Use of substances other than those prescribed or required for medical reasons: No Have you been hit, kicked, punched, or otherwise hurt by someone within the past year? If so, by whom?: No Are you DNR?: No Advance Directives: No Advance Directives Information Provided: Yes Advance Directives on File: No Patient : No : No Poor oral hygiene: No service: No Current occupational status: employed Current occupation: [employer] Current occupational exposures/hazards: No Cognitive needs: No Hearing needs: No Vision needs: No Meds Allergies Allergy/AdvReac Type Severity Reaction Status Date / Time amoxicillin Allergy Unknown hives Verified 03/04/25 06:18 Home Medications ?Medication ?Instructions ?Recorded ?Confirmed ?Last Taken ?Type omeprazole 20 mg capsule,delayed 20 mg PO DAILY 10/03/22 03/04/25 Unknown History release levocetirizine 5 mg tablet (Xyzal) 5 mg PO DAILY 10/23/23 03/04/25 Unknown History albuterol sulfate 2.5 mg/3 mL 2.5 mg inhalation Q6H PRN 03/01/25 03/04/25 Unknown History (0.083 %) solution for nebulization Shortness Of Breath Or Wheezing budesonide-formoterol HFA 80 2 puff inhalation DAILY 03/01/25 03/04/25 03/04/25 05:20 History mcg-4.5 mcg/actuation aerosol inhaler (Symbicort) Exam Airway Mallampati Class: II TM Dist: >3cm Neck ROM: Full Loose/Missing/Broken Teeth: No Heart: RRR Lungs: CTA Assessment and Plan Assessment Anesthesia Assessment: Anesthesia Plan Discussed and Chart Reviewed Final Anesthetic Review NPO: Yes ASA Class: II Final Preanesthetic Review: Meds/Allgs Chart Reviewed, Consent Obtained/Reviewed and Anes Risks/Benef Reviewed Patient Risk: Low Procedure Risk: Intermediate Anesthetic Plan Anesthetic Plan: GA Disposition: Standard PACU
[2025-03-04] VITALS (15 sets, daily range): BP systolic 104–124; BP diastolic 55–71; PULSE 81–104; RESP 14–19; TEMP 35.8–36.9; O2SAT 94–100; BMI 38.1; BMI 39.9
[2025-03-04 06:45] LABS: UPreg QC Valid YES
[2025-03-04] MEDS: Lactated Ringers 1,000 ML 999 ML IV (06:46)
[2025-03-04] MEDS: Aprepitant 32 MG/4.4 ML VIAL IVPUSH (06:48)
[2025-03-04] MEDS: Albuterol Sulfate (0.083%) 2.5 MG/3 ML VIAL.NEB INHALE (06:54)
--- NOTE | 2025-03-04 07:15 | PHA.MEDREC ---
Pharmacy Consult ? Medication Reconciliation Pharmacy has completed the medication reconciliation. Reviewed med rec done by nursing
--- NOTE | 2025-03-04 07:38 | MHC.SHP ---
Pre-Procedural Eval Section A - 24 Hr Update-Section A only Date of Service: 03/04/25 The patient is an INPATIENT: Yes The patient has been examined within 24 hours of the surgical procedure. The History & Physical has been completed within 30 days and I have reviewed it.: Yes Section B - Complete if H&P > 30 days Chief Complaint: obesity Relevant Family History (Specify if Yes): No Relevant Social History: None Present Medications: None Medical History: No relevant PMH History of Previous Operations: No relevant previous surgery Allergies: Allergies Allergy/AdvReac Type Severity Reaction Status Date / Time amoxicillin Allergy Unknown hives Verified 03/04/25 06:18 Review of Systems Sugical H&P ROS: Negative: Constitution, Cardiovascular, Respiratory, Neurological, Psychiatric, Hem-Onc, Allergic/Immunologic, Gastrointestinal, Genitourinary, Musculoskeletal, Integumentary, Endocrine and Eyes/Ears/Nose/Throat Exam Surgical H&P Exam: Normal: HEENT, Normal: Heart, Normal: Lungs, Normal: Extremities, Normal: Abdomen, Normal: Skin and Normal: Neurological Plan Diagnosis/Plan: Unchanged I have reviewed the history and physical and performed a pertinent physical examination on my patient. No changes have occurred unless specified. Time Spent With Patient Time: Total time managing care of this patient today ____ minutes.
--- NOTE | 2025-03-04 07:39 | PM.OP ---
Brief Operative Note Date of Service: 03/04/25 Pre-op diagnosis: Morbid obesity with comorbidities (see below) Post-op diagnosis: same (Abdominal adhesions) Procedure: INITIAL PATIENT BMI ON PRESENTATION AT OUR OFFICE: 45.5 kg/m2 LAST BMI BEFORE SURGERY: 40.1 kg/m2 COMORBIDITIES: asthma, GERD, depression, anxiety, liver steatosis,liver fibrosis ?The patient presented to the Weight Management Program with significant obesity that was negatively impacting the patient's comorbidities as listed above.? The program is a phased program with a special focus on preoperative medical weight management to promote substantial weight loss and prepare the patients for the second phase of the program: bariatric surgery. The patient participated in an intensive weekly lifestyle ?intervention and exercise program during which the patient ?has lost between the initial office visit and the last preoperative visit 30.8lbs, or 12.4% of initial actual body weight. It was deemed appropriate for the patient to now have bariatric surgery. In light of the current Covid-19 pandemic and the well documented strong association of obesity and increased risk of worse outcomes if infected with Covid-19 (REFERENCES:https://pubmed.ncbi.nlm.nih.gov/49137742/,?https://pubmed.ncbi.nlm.nih.gov/06658286/), any delay in undergoing bariatric surgery may lead to the patient's worsening health condition and increased?risk of more severe Covid-19 disease if infected. In addition a recent?study from [facility] published in [employer] on 05/08/2021 ([email or web address]) found that, among patients with obesity, substantial weight loss achieved with surgery was associated with improved outcomes of COVID-19 infection. The findings suggest that obesity can be a modifiable risk factor for the severity of COVID-19 infection. In addition, the patient met the BMI-criteria for bariatric surgery based on the BMI on initial presentation. The patient should not be penalized for achieving such weight loss because ?it is not sustainable long-term without surgical intervention and it was achieved in preparation for bariatric surgery ?under my direction and based on my published research ([email or web address]).[email or web address] and?https://www.soard.org/article/[email or web address](51)57830-X/pdf) ?that a 10% preoperative weight loss improves long-term weight loss after surgery and reduces perioperative complications.? Insurance carriers such as [facility] have endorsed my recommendations ?and have included in their policies criteria to include a 10% preoperative weight loss requirement. PROCEDURE: Esophago-gastroscopy, laparoscopic lysis of adhesions, laparoscopic sleeve gastrectomy and laparoscopic gastropexy INDICATIONS: This is a 29 year-old female who was electively scheduled for laparoscopic, possibly open sleeve gastrectomy. The risks and complications of the procedure were discussed with the patient in advance, particularly the possibility of ; pulmonary embolism; staple line leak; bleeding; GERD; cardiac, pulmonary, or renal complications; as well as long-term problems such as insufficient weight loss, vitamin deficiency, strictures, or ulcers. The patient understood all the risks, and was in agreement to proceed with surgery. DESCRIPTION OF PROCEDURE: After informed consent was obtained from the patient, the patient was given preoperative antibiotics, and was transferred to the operating room. After successful induction of general anesthesia, pneumatic compression devices were placed on both lower extremities. An upper endoscopy was performed next. The oropharynx and esophagus appeared to be within normal limits. There was no significant diaphragmatic hernia present. The stomach was entered. Then after all fluid and air were suctioned and the stomach was fully decompressed, the scope was withdrawn and secured in the mid esophagus. The patient was then prepped and draped in the usual sterile manner, and abdominal access was established at the right upper quadrant with the Vandana technique. A 12 mm blunt port was inserted, and the abdomen was insufflated with CO2 to a pressure of 15 mmHg. Under direct visualization, additional ports were placed, specifically two 5 mm Versi-step ports to the left upper quadrant, and a 5 mm Versi-Step port to the right upper quadrant. 1% lidocaine plain was used to infiltrate all port sites as well as all fascia defects. Following that, the patient was placed in a steep reverse Trendelenburg position. An additional 5 mm port was placed to the right flank for the Mediflex retractor that was used to retract the left lobe of the liver. The gastro-esophageal fat pad was opened with the ultrasonic device (Thunderbeat, Olympus) and the anterior esophagus and hiatus were exposed. The angle of His was opened with the ultrasonic device the fundus of the stomach from any diaphragmatic and splenic attachments. I then opened the gastrocolic ligament between the transverse colon and the greater curvature of the stomach with the ultrasonic device to enter the lesser sac and facilitate the ligation of the short gastric vessels. I started at a mid-point along the greater curvature and using the Thunderbeat, all short gastric vessels were divided all the way to the angle of His until the left joe was completely dissected at its entirety. I then divided the gastro-colic ligament distally to a distance of about 3-4 cm proximal to the pylorus. There were extensive congenital adhesions between the pancreas and posterior gastric wall. Those were lysed completely with the ultrasonic device. Adhesiolysis took approximately 45 min to complete. The stomach was then divided transversely with three Endo MARISELA-45 purple and two MARISELA-6s0 articulating purple loads using the Tbricks stapler and loads. Every effort was made that the gastric sleeve had a tubular shape and an even caliber throughout. Once the sleeve resection was completed, the staple line of the gastric sleeve was reinforced with Hemoclips. The resected stomach was retrieved without difficulty from the Vandana port. A gastropexy was then performed in order to prevent postoperative GERD and partial gastric volvulus. Several interrupted 2.0 Surgidac sutures were placed between the sleeve's staple line and the previously divided greater omentum and gastro-colic ligament using the Endo-Stitch device. ?An upper endoscopy was performed. There was no narrowing at the GE junction. The scope was easily advanced all the way to the pylorus which was clearly visualized. There was no narrowing anywhere and the sleeve's caliber was even throughout. The sleeve's staple line was inspected and there was no evidence of ischemia, bleeding or dehiscence. At that point the gastroscope was withdrawn from the patient?s mouth while we were decompressing the bowel and the stomach from any remaining air. I looked into the lesser sac to see how the sleeve was situating and it was situating well. There was no bleeding from the staple line, spleen, or short gastric vessels. The Mediflex retractor was removed, and the undersurface of the liver was inspected and there was no bleeding. The patient was placed in supine position. I closed the fascial defect of the 12 mm port site with a figure of eight #1 Polysorb suture. Then 30cc Ropivacaine plain with 10 mg of Dexamethasone were used to infiltrate the fascial closure as well as all skin incisions. At this point, the abdomen was deflated, all ports were removed under direct vision, and no bleeding was noted from any of the port sites. The skin incisions were irrigated with saline and were closed with 4-0 absorbable monofilament sutures. Steri-Strips and OpSites were used to cover all incisions. The patient was extubated and was transferred in stable condition to the recovery room for further care. I was present and performed all alberto parts of the procedure. Ms. Patino was the first assist. There were no residents to assist with this case. Marty Schwartz MD, PhD, FACS Surgeon: Carlos Schwartz MD Anesthesia: GETA, local and other (TAP block) Was an Wrist Hemmer used for this Procedure?: No Wrist Hemmer: Wendy Patino Estimated blood loss (mL): 10 IV fluids (mL): 2,000 Urine output (mL): 0 (No Clay to record output) Pathology: other (1) Stomach, 2) Gastro-esophageal fat pad) Condition: stable Disposition: PACU
--- NOTE | 2025-03-04 07:43 | P.PNGS_ITS ---
Subjective Subjective Date of Service: 03/04/25 Interval history: Feels well. Mild incisional pain. She is tolerating phase 1 bariatric diet Physical Exam Vital Signs: Vital Signs: Last Vital Signs Temp 98.0 F 03/04/25 06:33 Pulse 104 H 03/04/25 07:02 Resp 16 03/04/25 07:02 BP 120/71 03/04/25 06:33 Pulse Ox 99 03/04/25 07:02 O2 Del Method Room Air 03/04/25 07:02 BMI result Body Mass Index 38.1 GI: Inspection: Yes normal to inspection, Yes incision (clean, dry and intact) and Yes obesity Palpation (GI): Soft to palpation Extrem: Right lower extremity: normal to inspection (no calf tenderness) Left lower extremity: normal to inspection (no calf tenderness) Objective Data Active Medications Albuterol Sulfate (Albuterol Sulfate (0.083%) 2.5 Mg/3 Ml Vial.Neb) 2.5 mg INHALE ONCE PRN PRN Reason: Shortness of Breath/Wheezing Last Admin: 03/04/25 06:54 Dose: 2.5 mg Documented By: PAT Lactated Ringer's (Lr) 1,000 mls @ 100 mls/hr IVCONT .Q10H [facility] Stop: 03/04/25 10:14 Lactated Ringer's (Lr) 1,000 mls @ 999 mls/hr IV .Q1H1M [facility] Stop: 03/04/25 08:15 Last Admin: 03/04/25 06:46 Dose: 999 mls/hr Documented By: PAT Labs Labs: Laboratory Results - last 24 hr 03/04/25 06:17 Urine Test NEGATIVE Procedures Date of Service Date of Service: 03/04/25 Progress Note: A&P Assessment and plan (1) Morbid obesity: Status: Acute Assessment and Plan: s/p laparoscopic sleeve gastrectomy, lysis of adhesions and gastropexy Doing well Will check am labs and if OK the patient will be discharged home (2) Anxiety and depression: Status: Acute (3) Steatosis, liver: Status: Acute (4) Liver fibrosis: Status: Acute (5) GERD (gastroesophageal reflux disease): Status: Acute (6) S/P laparoscopic sleeve gastrectomy: Status: Acute Time Spent With Patient Time: Total time managing care of this patient today ____ minutes. Quality Stroke Does the patient have a stroke diagnosis?: No VTE Prior VTE?: No VTE Risk Level:: Surgical - moderate VTE Device Contraindication: N/A - Device Ordered VTE Drug Contraindication: Treatment Not Indicated
[2025-03-04] MEDS: Lactated Ringers 1,000 ML 100 ML IVCONT ×3 (07:44→20:35)
--- NOTE | 2025-03-04 09:59 | PM.DS ---
DS: Providers Provider Date of admission: 03/04/25 06:08 Primary care physician: Mikhail Crabtree [facility] DS: Diagnosis Discharge Diagnosis (1) Morbid obesity: Status: Acute (2) Anxiety and depression: Status: Acute (3) Steatosis, liver: Status: Acute (4) Liver fibrosis: Status: Acute (5) GERD (gastroesophageal reflux disease): Status: Acute DS: Summary Hospital Course Hospital Course: ADMITTING DIAGNOSIS: obesity, liver fibrosis/steatosis, hip pain, back pain, sleep apnea, wheezing, anxiety, depression, allergies, asthma, GERD DISCHARGE DIAGNOSIS: same, s/p laparoscopic sleeve gastrectomy and gastropexy PAST SURGICAL HISTORY:? History of cholecystectomy History of removal of cyst PROCEDURE: upper endoscopy, laparoscopic sleeve gastrectomy and gastropexy DISCHARGE SUMMARY: History of Present Illness: The patient is a?29 year-old woman with a BMI of?38.1 kg/m2 and associated co-morbidities as described above. The patient had extensive work-up, lost?40.6 lbs preoperatively and was electively scheduled for laparoscopic, possible open sleeve gastrectomy and gastropexy. Risks and complications of the surgery were discussed with the patient in advance, particularly the possibility of , pulmonary embolism, anastomotic leak, bleeding, bowel injury, GERD, cardiac, renal or pulmonary complications. The patient understood all the risks and was in agreement with the surgical plan. Hospital Course: The patient underwent an uneventful laparoscopic sleeve gastrectomy with gastropexy on the day of admission. Postoperatively, the patient was transferred to the surgical floor. The patient received IV acetaminophen and IV Dilaudid for pain control. Patient was started on bariatric phase 1 diet POD #0. On postoperative day one, the patient was feeling well without nausea, vomiting, fevers, or tachycardia. The patient had some mild incisional pain and the abdomen was soft.? ? On the morning of postoperative day one, the patient was continued on 1 ounce of water or ice every half hour. During the day, the patient did fairly well, having some incisional pain, but able to ambulate adequately and to tolerate liquids well. Since the patient is doing well, we decided that the patient was ready to be discharged. The patient was given instructions to follow-up in office next week and to call the office for any fever over 101, persistent abdominal pain, nausea, vomiting, GERD, symptoms of DVT such as calf tenderness, or leg swelling, or pulmonary embolism such as chest pain or shortness of breath.? The patient was also instructed to drink 40-60 ounces of liquids per day using the 1-ounce cups. The patient had been given prescriptions for Tylenol for pain, Zofran prn for nausea, and pantoprazole and carafate previously. The patient was encouraged to ambulate and use the incentive spirometer. The patient was allowed to shower, but no baths, and encouraged to stay active at home. All of these instructions were given to the patient personally. All questions were answered and the patient understood all instructions, the instructions were also given to the patient in print. Time Attestation Discharge Coordination Time (in mins): 30 Quality: Safe Use of Opioids Does Pt have an Active Cancer Diagnosis on the Problem List?: No Quality: Stroke Does the patient have a stroke diagnosis?: No Physical Exam Vital Signs: Vital Signs: Last Vital Signs Temp 98.5 F 03/04/25 09:48 Pulse 89 03/04/25 09:53 Resp 17 03/04/25 09:53 BP 118/59 L 03/04/25 09:53 Pulse Ox 100 03/04/25 09:53 O2 Del Method Simple Mask 03/04/25 09:53 O2 Flow Rate 6 03/04/25 09:53 BMI result Body Mass Index 38.1 DS: Data Data Completed and Pending Pending studies at discharge: Pending at discharge 03/04/25 09:12 Surgical [PTH] Routine Labs on day of discharge: Laboratory Results - last 24 hr 03/04/25 06:17 Urine Test NEGATIVE Discharge Plan Discharge Anticipated Discharge Date/Time: 03/05/25 10:00 Patient Disposition: Home, Self-Care Discharge Diagnosis: s/p laparoscopic sleeve gastrectomy with gastropexy Referrals: Mikhail Crabtree, [facility] [Primary Care Provider, Internal Medicine] - 1 Week Discharge Medications: Continued albuterol sulfate 90 mcg/actuation HFA aerosol inhaler 1 puff PO Q4H PRN (Reason: bronchospasm) Qty: 8.5 2RF fluoxetine 40 mg capsule 40 mg PO DAILY 90 Days Qty: 90 1RF albuterol sulfate 2.5 mg /3 mL (0.083 %) solution for nebulization 2.5 mg inhalation Q6H PRN (Reason: Shortness Of Breath Or Wheezing) budesonide-formoterol [Symbicort] 80-4.5 mcg/actuation HFA aerosol inhaler 2 puff inhalation DAILY levocetirizine [Xyzal] 5 mg tablet 5 mg PO DAILY (DME) peak flow meter Device See Rx Instructions .ROUTE .MEDSUPPLY Qty: 1 0RF Rx Instructions: As directed pantoprazole 40 mg tablet,delayed release (DR/EC) 40 mg PO DAILY Qty: 90 0RF ondansetron 4 mg tablet,disintegrating 4 mg PO Q12H Qty: 20 0RF Rx Instructions: Only take one every 12 hours as needed if you have nausea Discontinued cholecalciferol (vitamin D3) 125 mcg (5,000 unit) capsule 125 mcg PO DAILY Qty: 90 0RF vitamin A palmitate 3,000 mcg (10,000 unit) capsule 6,000 mcg PO DAILY Qty: 90 0RF Zepbound 7.5 mg/0.5 mL pen injector 7.5 mg subcut QWEEK Qty: 2 0RF Patient Comments: PATIENT TAKES EVERY SATURDAY omeprazole 20 mg capsule,delayed release(DR/EC) 20 mg PO DAILY Stand Alone Forms: Patient Portal Discharge page Print Language: Upper Sorbian
[2025-03-04 10:30] LABS: Hematocrit 37.4 % (37.0-47.0); Hemoglobin 12.4 g/dl (12.0-16.0)
[2025-03-04 10:41] LABS: Anion Gap 13 (12-20); Blood Urea Nitrogen 8 mg/dL (9-16); Calcium 8.5 mg/dL (8.4-10.2); Carbon Dioxide 24 mmol/L (22-29); Chloride 105 mmol/L (96-108); Creatinine Clr Calc Pharmacy 131.8; Estimated Glomerular Filt Rate > 60; Potassium 3.7 mmol/L (3.3-5.1); Sodium 138 mmol/L (135-145)
[2025-03-04] MEDS: 0.9 % Sodium Chloride Flush 3 ML SYRINGE IVFLUSH (20:35)
[2025-03-05 03:34] VITALS: BP 120/70; PULSE 87; RESP 18; TEMP 35.7; O2SAT 97
[2025-03-05] MEDS: Lactated Ringers 1,000 ML 100 ML IVCONT (05:14)
[2025-03-05 06:06] LABS: MANUAL DIFF FLAG NO
[2025-03-05 06:15] LABS: Hematocrit 36.4 % (37.0-47.0); Hemoglobin 12.0 g/dl (12.0-16.0); Imm Gran Abs Auto 0.03 X10*3/uL (0.00-0.03); Imm Gran Pct Auto 0.3 % (0.0-0.4); Lymphocytes Absolute Auto 0.9 X10*3/uL (1.2-4.9); Mean Corpuscular HGB Conc 33.0 g/dl (31.0-35.0); Mean Corpuscular Hemoglobin 28.4 pg (27.0-33.0); Mean Corpuscular Volume 86.3 fL (80.0-98.0); NRBC Abs Auto 0.000 X10*3/uL (0.0-0.012); NRBC Pct Auto 0.0 /100WBC (0.0-0.2); Platelet Count 248 X10*3/uL (160-400); Red Blood Count 4.22 X10*6/uL (4.20-5.50); White Blood Count 9.6 X10*3/uL (4.8-10.8)
[2025-03-05 06:26] LABS: Anion Gap 13 (12-20); Blood Urea Nitrogen 6 mg/dL (9-16); Calcium 8.5 mg/dL (8.4-10.2); Carbon Dioxide 23 mmol/L (22-29); Chloride 107 mmol/L (96-108); Creatinine Clr Calc Pharmacy 158.8; Estimated Glomerular Filt Rate > 60; Potassium 4.7 mmol/L (3.3-5.1); Sodium 138 mmol/L (135-145)
[2025-03-05 07:24] VITALS: BP 108/55; PULSE 78; RESP 16; TEMP 36; O2SAT 95
--- NOTE | 2025-03-05 08:23 | HO.POSTANES ---
Post Anesthesia Evaluation Post Anesthesia Evaluation Date of Service: 03/05/25 Vital Signs: Vital Signs Temp Pulse Resp BP Pulse Ox O2 Del Method 03/05/25 07:24 96.8 F 78 16 108/55 L 95 Room Air 03/05/25 03:34 96.3 F L 87 18 120/70 97 Room Air 03/04/25 23:20 96.4 F L 81 18 124/70 95 Room Air Anesthesia: General Endotracheal-GETA Mental Status: Awake Pain Control: Satisfactory Nausea/Vomiting: None Hydration: Adequate Anesthesia-Related Issues: No Anes. Related Issues
--- NOTE | 2025-03-05 13:03 | MHC.CM.PN ---
Patient was discharged prior to being seen by case management. S/P gastric Sleeve 03/04. DP Home self care. She arranged for a ride home.
== END 2025-03-05 10:52 | disposition home or self-care (01) | DRG 403 ==
LOC: HO.SSSA 09:54 → HO.S3 10:36
PROVIDERS: Nurse Practitioner; Surgery; Admitting Provider Physician Assistant Surgical; PCP Nurse Practitioner Family; Visit Provider Physician Assistant Surgical
PROC: 0DB64Z3 Excision of Stomach, Percutaneous Endoscopic Approach, Vertical (ICD-10-PCS; CPT 43845; principal; 2025-03-04 07:30)
DX: E66.01 Morbid (severe) obesity due to excess calories (principal); K74.00 Hepatic fibrosis, unspecified; Q43.3 Congenital malformations of intestinal fixation; F32.A Depression, unspecified; F41.9 Anxiety disorder, unspecified; J45.909 Unspecified asthma, uncomplicated; Z71.3 Dietary counseling and surveillance; Z68.41 Body mass index [BMI] 40.0-44.9, adult; K21.9 Gastro-esophageal reflux disease without esophagitis; K76.0 Fatty (change of) liver, not elsewhere classified; Z79.899 Other long term (current) drug therapy
CPT/HCPCS: 36415; 80048; 81025; 85014; 85018; 85025; 86850; 86900; 86901; 88304; 88307; 88342; A4649; C9145; J0131; J1100; J1200; J1308; J1956; J2003; J2250; J2371; J2405; J2704; J2795; J3010; J7120

== ENCOUNTER → 2025-03-04 06:08 | Outpatient (BNV) | payer MEDICAID, SELFPAY | PROVIDERS: Admitting Provider Physician Assistant Surgical; PCP Nurse Practitioner Family; Visit Provider Surgery | DX: E66.01 Morbid (severe) obesity due to excess calories (principal); Z68.41 Body mass index [BMI] 40.0-44.9, adult; K21.9 Gastro-esophageal reflux disease without esophagitis | CPT/HCPCS: 43659; 43775 ==

== ENCOUNTER 2025-03-10 09:25 | Outpatient (AMB) | payer OTHER, SELFPAY ==
--- NOTE | 2025-03-10 09:28 | MHC.OFFVISWM ---
VS Expanded 03/10/25 09:54 BP 123/68 Blood Pressure Location Rt brachial Blood Pressure Position Sitting Pulse 85 Pulse Source Pulse Oximeter Temp 98.0 F Temperature Source Temporal Artery Scan Pulse Oximetry 98 Oxygen Delivery Method Room Air Height 5 ft 2 in Weight 199 lb 6.4 oz BMI 36.5 Body Fat % 44.1 Body Fat Mass 88.0 Fat Free Mass 111.4 Visceral Fat Rating 9.0 Body Water % 40.2 Body Water Mass 80.0 Muscle Mass/Score 105.6 Basal Metabolic Rate/Score 1,599 Intake Visit Reasons: (OV) PO LSG 03/04/25 Allergies amoxicillin Allergy (Unknown, Verified 03/10/25 09:45) hives Medication List - Last Reconciled 03/10/25 by KIRTI Becker albuterol sulfate 2.5 mg inhalation Q6H PRN albuterol sulfate 90 mcg/actuation 1 puff PO Q4H PRN budesonide-formoterol 80-4.5 mcg/actuation (Symbicort) 2 puffs inhalation DAILY fluoxetine 40 mg PO DAILY 90 days levocetirizine (Xyzal) 5 mg PO DAILY ondansetron 4 mg PO Q12H pantoprazole 40 mg PO DAILY peak flow meter As directed HPI Comments Details: Pt is s/p LSG 03/04/2025. No pain. No nausea. Tolerating Atkins mixed with water for total 8oz liquid. Hydration is adequate- 38-41oz. [facility], [facility] Medical History (Updated 03/06/25 @ 00:01 by Irina Mims) Pre-bariatric surgery psychological evaluation Encounter for routine adult physical exam with abnormal findings Encounter for screening for malformation using ultrasound Family planning advice Physical exam Early stage of Liver fibrosis Steatosis, liver Hiatal hernia Depression Hx: recurrent pneumonia GERD (gastroesophageal reflux disease) Morbid obesity Multiple joint complaints Elevated LFTs Obesity Cervical cancer screening Salivary stone Asthma Plantar warts HSV-1 infection Surgical History S/P gastric sleeve procedure History of esophagogastroduodenoscopy (EGD) History of cholecystectomy History of removal of cyst Family History Father No problems noted. Mother Mental health disorder Maternal Grandmother Diabetes mellitus Substance use disorder Mental health disorder Maternal Grandfather Cancer Substance use disorder Paternal Grandfather No problems noted. Paternal Grandmother No problems noted. Brother No problems noted. Brother No problems noted. Brother Mental health disorder Sister No problems noted. Sister No problems noted. Sister No problems noted. Sister No problems noted. Social History Household Members: None Housing: Apartment Are you a primary care process manager to a significant other at home: No Do you presently have visiting nurse or other home services: No Alcohol intake: never Patient Tobacco Use Status: Never used Tobacco e-Cigarette/Vaping Use: Never Used Second Hand Smoke Exposure: No service: No Current occupational status: employed Current occupation: [employer] Current occupational exposures/hazards: No Cognitive needs: No Hearing needs: No Vision needs: No Female Reproductive History Menstrual Age of Menarche: 13 Physical Exam Const General: cooperative, comfortable and no acute distress Orientation/consciousness: patient oriented x3 GI Other: soft, nontender, nondistended, steri-strips c/d/i Neuro General: patient oriented x3 Assessment & Plan Assessment & Plan (1) Obesity: Code(s): E66.9 - Obesity, unspecified Category: Medical Qualifiers: Obesity type: due to excess calories Obesity classification: unspecified obesity classification Serious obesity comorbidity presence: without serious comorbidity Qualified Code(s): E66.09 - Other obesity due to excess calories (2) S/P laparoscopic sleeve gastrectomy: Code(s): Z98.84 - Bariatric surgery status Category: Medical Plan May shower tomorrow but no bath or submersion of abdomen in water. May start exercise in 2 days. No abdominal exercises x 6 weeks. Abdominal binder for the next 2 weeks with activity or exercise. Continue meal plan per Dr Robbins until next f/u in 5 weeks. Reviewed pantoprazole and carafate dosing. Reminded of the pace of drinking 2 mL/min or 1oz per 15 min. Will be emailed link for post op video for review.
[2025-03-10 09:54] VITALS: BP 123/68; PULSE 85; TEMP 36.7; O2SAT 98; BMI 36.5
== END 2025-03-10 10:26 | disposition home or self-care (01) ==
LOC: HO.HBS 09:26
PROVIDERS: PCP Nurse Practitioner Family; Visit Provider Physician Assistant Surgical
DX: E66.9 Obesity, unspecified (principal); Z68.36 Body mass index [BMI] 36.0-36.9, adult; Z90.3 Acquired absence of stomach [part of]; Z98.84 Bariatric surgery status
CPT/HCPCS: 99024

== ENCOUNTER → 2025-03-10 09:25 | Outpatient (BNVA) | payer OTHER, SELFPAY | PROVIDERS: PCP Nurse Practitioner Family; Visit Provider Physician Assistant Surgical | DX: E66.09 Other obesity due to excess calories (principal); Z68.36 Body mass index [BMI] 36.0-36.9, adult; Z90.3 Acquired absence of stomach [part of]; Z98.84 Bariatric surgery status | CPT/HCPCS: 99212 ==

== ENCOUNTER 2025-03-10 13:10 | Outpatient (AMB) | payer OTHER, SELFPAY ==
--- NOTE | 2025-03-10 13:07 | A.OFFWM_ITS ---
Intake Intake Visit Reasons: VIDEO PO LSG 03/04/25 Allergies amoxicillin Allergy (Unknown, Verified 03/10/25 09:45) hives [facility] Medical History (Updated 03/06/25 @ 00:01 by Irina Mims) Pre-bariatric surgery psychological evaluation Encounter for routine adult physical exam with abnormal findings Encounter for screening for malformation using ultrasound Family planning advice Physical exam Early stage of Liver fibrosis Steatosis, liver Hiatal hernia Depression Hx: recurrent pneumonia GERD (gastroesophageal reflux disease) Morbid obesity Multiple joint complaints Elevated LFTs Obesity Cervical cancer screening Salivary stone Asthma Plantar warts HSV-1 infection Surgical History S/P gastric sleeve procedure History of esophagogastroduodenoscopy (EGD) History of cholecystectomy History of removal of cyst Family History Father No problems noted. Mother Mental health disorder Maternal Grandmother Diabetes mellitus Substance use disorder Mental health disorder Maternal Grandfather Cancer Substance use disorder Paternal Grandfather No problems noted. Paternal Grandmother No problems noted. Brother No problems noted. Brother No problems noted. Brother Mental health disorder Sister No problems noted. Sister No problems noted. Sister No problems noted. Sister No problems noted. Social History Household Members: None Housing: Apartment Are you a primary managed care provider to a significant other at home: No Do you presently have visiting nurse or other home services: No Alcohol intake: never Patient Tobacco Use Status: Never used Tobacco e-Cigarette/Vaping Use: Never Used Second Hand Smoke Exposure: No service: No Current occupational status: employed Current occupation: [employer] Current occupational exposures/hazards: No Cognitive needs: No Hearing needs: No Vision needs: No Female Reproductive History Menstrual Age of Menarche: 13 Behavioral Health Assessment Weight Management Therapy Therapy Notes Details Subjective: Patient is status post weight loss surgery on 03/04/2025. Weight on the day of surgery was 208 lbs; current weight is 199 lbs. She denies pain or complications with recovery aside from expected post-operative soreness and reports tolerating the liquid diet well. Mood is stable and positive. She has support from her and mother. Patient denies hunger but notes occasional thoughts about food. Objective: Patient attended a behavioral health post-op follow-up. A guided emotional check-in was completed to assess mood, recovery, and adjustment. Psychoeducation was provided on common emotional changes after bariatric surgery, with a focus on distinguishing hunger from cravings and developing mindful eating strategies. Emphasis was placed on following WMP guidelines, including pacing with fluids and adherence to the meal and exercise plan. Program resources and long-term success tips were reviewed, and the patient was invited to join the program?s Facebook group for ongoing support. Assessment/Response: * Mental status: WNL * Risk reported/identified: None Assessment & Plan Assessment & Plan (1) Adjustment disorder with mixed anxiety and depressed mood: Code(s): F43.23 - Adjustment disorder with mixed anxiety and depressed mood (2) Status post bariatric surgery: Code(s): Z98.84 - Bariatric surgery status Plan No safety concerns or issues were identified that would necessitate behavioral health monitoring. The patient declined further visits but is aware of the available behavioral health support if needed in the future. Telehealth Telehealth Telehealth Platform: [facility] Location of provider rendering services: practice address Location of patient: address on file Patient Identification confirmed using: Name, : Yes Telehealth method: voice only Patient verbally consented to treatment: Yes Patient verbally consented to billing insurance company: Yes Patient informed of any privacy concerns related to visit: Yes Minutes spent on Phone/Video with Pt.: 25 Coding Level of Care Code Established Pt Tele Psytx 30 mins (56090) Patient Type Established Diagnoses Adjustment disorder with mixed anxiety and depressed mood F43.23 Status post bariatric surgery Z98.84 Time Spent (min) 25
== END 2025-03-10 13:45 | disposition home or self-care (01) ==
LOC: HO.HBST 13:10
PROVIDERS: PCP Nurse Practitioner Family; Visit Provider Counselor Mental Health
DX: F43.23 Adjustment disorder with mixed anxiety and depressed mood (principal); Z98.84 Bariatric surgery status
CPT/HCPCS: 90832

== ENCOUNTER 2025-04-12 09:58 | Outpatient (AMB) | payer OTHER, SELFPAY ==
--- NOTE | 2025-04-12 10:04 | A.OFFVIS_ITS ---
VS Expanded 04/12/25 10:13 BP 117/73 Blood Pressure Location Rt brachial Blood Pressure Position Sitting Pulse 68 Pulse Source Pulse Oximeter Temp 96.7 F L Temperature Source Temporal Artery Scan Pulse Oximetry 98 Oxygen Delivery Method Room Air Height 5 ft 2 in Weight 186 lb 3.2 oz BMI 34.1 Body Fat % 39.2 Body Fat Mass 73.0 Fat Free Mass 113.0 Visceral Fat Rating 7.0 Body Water % 43.7 Body Water Mass 81.4 Muscle Mass/Score 107.4 Basal Metabolic Rate/Score 1,595 Intake Visit Reasons: (OV) PO LSG 03/04/25 Allergies amoxicillin Allergy (Unknown, Verified 04/12/25 10:14) hives Medication List - Last Reconciled 04/12/25 by Melody Birch CNP albuterol sulfate 2.5 mg inhalation Q6H PRN albuterol sulfate 90 mcg/actuation 1 puff PO Q4H PRN budesonide-formoterol 80-4.5 mcg/actuation (Symbicort) 2 puffs inhalation DAILY fluoxetine 40 mg PO DAILY 90 days levocetirizine (Xyzal) 5 mg PO DAILY ondansetron 4 mg PO Q12H pantoprazole 40 mg PO DAILY peak flow meter As directed sucralfate 10 mL PO BID HPI Comments Details: 29 year old woman s/p LSG on?03/04/2025. Presents for 6 week post op visit. Starting weight was 248.8 lbs. Operative weight was 208.4 lbs. Weight at last visit on 03/10/2025 was 199.4 lbs with a BMI of 36.5 Weight today is 186.2 lbs, representing a 62.6 lbs weight loss since the start of the program 11/25/2024. BMI today of 34.1 No complaints of nausea, emesis, abdominal pain or reflux. Constipation over the last week, needs refill of miralax Current meal plan includes: Atkins mixed with water for total 8oz liquid 3x per day Added 1 Atkins protein bar, cut into 6 pieces, 1 piece every 30 mins Hydration is adequate 38-41oz. [facility] Medical History (Updated 03/13/25 @ 00:00 by Background Daemon) Pre-bariatric surgery psychological evaluation Encounter for routine adult physical exam with abnormal findings Encounter for screening for malformation using ultrasound Family planning advice Physical exam Early stage of Liver fibrosis Steatosis, liver Hiatal hernia Depression Hx: recurrent pneumonia GERD (gastroesophageal reflux disease) Morbid obesity Multiple joint complaints Elevated LFTs Obesity Cervical cancer screening Salivary stone Asthma Plantar warts HSV-1 infection Surgical History S/P gastric sleeve procedure History of esophagogastroduodenoscopy (EGD) History of cholecystectomy History of removal of cyst Family History Father No problems noted. Mother Mental health disorder Maternal Grandmother Diabetes mellitus Substance use disorder Mental health disorder Maternal Grandfather Cancer Substance use disorder Paternal Grandfather No problems noted. Paternal Grandmother No problems noted. Brother No problems noted. Brother No problems noted. Brother Mental health disorder Sister No problems noted. Sister No problems noted. Sister No problems noted. Sister No problems noted. Social History Household Members: None Housing: Apartment Are you a primary critical care unit manager to a significant other at home: No Do you presently have visiting nurse or other home services: No Alcohol intake: never Patient Tobacco Use Status: Never used Tobacco e-Cigarette/Vaping Use: Never Used Second Hand Smoke Exposure: No service: No Current occupational status: employed Current occupation: [employer] Current occupational exposures/hazards: No Cognitive needs: No Hearing needs: No Vision needs: No Female Reproductive History Menstrual Age of Menarche: 13 Physical Exam Vital Signs: Last Vital Signs Temp 96.7 F L 04/12/25 10:13 Pulse 68 04/12/25 10:13 BP 117/73 04/12/25 10:13 Pulse Ox 98 04/12/25 10:13 Oxygen Delivery Method Room Air 04/12/25 10:13 BMI result Body Mass Index 34.1 Const General: cooperative, healthy appearing, comfortable and no acute distress Orientation/consciousness: patient oriented x3 GI Other: abd soft non tender non distended. 5 lap sites healing well, 2 right sided lap sites scabbed over. No drainage, open areas, redness, or S&S of infection. Neuro General: patient oriented x3 Assessment & Plan Assessment & Plan (1) S/P laparoscopic sleeve gastrectomy: Code(s): Z98.84 - Bariatric surgery status Category: Surgical Plan: Plan: - Cleared for all exercises. Goal 2000 calories/week - She likes to wear abdominal binder prn, this is fine. - Continue meal plan per Dr Robbins. She wants to try more food, and will reach out to him. - Should start bariatric MVI since she is > 2 weeks post op - Reviewed pantoprazole and carafate dosing. - Will send refill of Miralax prn constipation Follow up: 6 weeks Medications: New polyethylene glycol 3350 (Miralax) 17 grams PO DAILY PRN 510 grams 3RF constipation
[2025-04-12 10:13] VITALS: BP 117/73; PULSE 68; TEMP 35.9; O2SAT 98; BMI 34.1
== END 2025-04-12 10:41 | disposition home or self-care (01) ==
LOC: HO.HBS 09:59
PROVIDERS: PCP Nurse Practitioner Family; Visit Provider Nurse Practitioner
DX: Z98.84 Bariatric surgery status (principal)
CPT/HCPCS: 99024

== ENCOUNTER → 2025-04-12 09:58 | Outpatient (BNVA) | payer OTHER, SELFPAY | PROVIDERS: PCP Nurse Practitioner Family; Visit Provider Nurse Practitioner | DX: Z98.84 Bariatric surgery status (principal) | CPT/HCPCS: 99212 ==